=== PATIENT | male | born 1965 | race Caucasian/White ===

== ENCOUNTER 2017-05-25 02:26 | Inpatient (IN) | payer OTHER ==
[~2017-05-25] VITALS: Ht 177.8 cm; Wt 91.0 kg
[2017-05-25 07:47] VITALS: BP 131/78; PULSE 62; TEMP 36.7; O2SAT 97; Ht 177.8 cm; Wt 91.0 kg
[2017-05-25] MEDS ORDERED: PROMETHAZINE HCL INJ 25 MG in SODIUM CHLORIDE 0.9% 50ML 50 ML IV PRN (08:00)
[2017-05-25] MEDS ORDERED: SODIUM CHLORIDE 0.9% 1000ML 1,000 ML IV SCH (08:00)
[2017-05-25] MEDS ORDERED: VANCOMYCIN CONSULT ACTIVE PRN (08:32)
[2017-05-25 08:59] LABS: HEMOGLOBIN 10.1 g/dL (14.0-18.0); MEAN CELL VOLUME 86.6 fL (80-100); MEAN CORPUSCULAR HEMOGLOBIN 28.2 pg (25-34); MEAN CORPUSCULAR HGB CONC 32.6 g/dl (32-36); MEAN PLATELET VOLUME 8.4 fL (7.4-10.4); PLATELET COUNT 303 K/uL (130-400); RED CELL DISTRIBUTION WIDTH CV 16.1 % (11.5-14.5); RED CELL DISTRIBUTION WIDTH SD 51.1 fL (36.4-46.3); WHITE BLOOD COUNT 9.21 K/uL (4.8-10.8)
[2017-05-25] MEDS: HYDROmorphone INJ 1 MG/ML SYR IV PRN ×6 (09:11→22:26)
[2017-05-25] MEDS: CEFTRIAXONE SOD INJ 2,000 MG in DEXTROSE 5% 50ML 50 ML IV SCH (09:11)
--- NOTE | 2017-05-25 09:15 | DIAGNOSTIC IMAGING REPORT ---
L FEMUR 2 VIEWS ROUTINE CLINICAL HISTORY: dislocation left hip/r/o fx. Left hip pain. COMPARISON STUDY: There is a left femoral prosthesis. The head of the prosthesis is dislocated superiorly from the acetabulum. There is also a periprosthetic fracture at the residual proximal femur. This demonstrates up to 1.6 cm of anterior lateral displacement. The mid to distal femur are intact. A surgical drain is noted within the soft tissues of the left hip. FINDINGS: IMPRESSION: 1. Dislocation of the femoral prosthesis from the acetabulum. 2. There is a periprosthetic fracture at the proximal femur which demonstrates 1.6 cm of anterior lateral displacement. Electronically signed by: Jordin Gomez M.D. 05/25/2017 9:14 AM Dictated Date/Time: 05/25/2017 9:07 AM
[2017-05-25 09:18] LABS: CALCIUM 8.8 mg/dl (8.5-10.1); CREATININE 0.62 mg/dl (0.60-1.40); POTASSIUM 4.3 mmol/L (3.5-5.1)
--- NOTE | 2017-05-25 09:30 | History and Physical ---
History & Physical Date & Time of Service: May 25, 2017 at 09:09 Chief Complaint: Left Hip Fracture Primary Care Physician: Carmen Leahy D.O. History of Present Illness Source: patient, hospital records, senior living 52 yo Male with PMH of Left hip prosthesis infection, Gastritis, Duodenal ulcer , HTN, Dyslipidemia, Depression was transferred from [facility] for left hip dislocation. Pt said that he had surgery done in [facility] on 05/17 for Left hip prosthesis infection. He had and antibiotic spacer placed in the left hip joint area. He said that after the surgery while working with PT, he had a fall and xray was done at that time was unremarkable. Pt said that he was transferred to Nursing to complete IV abx with Vanco and Rocephin for a course of 6 weeks. Pt said that yesterday morning he rolled over in bed and felt a pop , then he developed 10/10 pain in his left hip area. He said that the pain is constant, non radiating, worsening when moving his left LE. He said that stays still help with the pain minimally. He had xray done in the nursing and at [facility] that showed dislocation of the L hip. Pt orthopedic is out of town, and was transferred to [facility] for Dr. Peoples to evaluate him. Denies any chest pain, palpitation, dizziness, fever, chills and SOB. Past Medical/Surgical History Left Hip prosthesis infection HTN Dyslipidemia Depression Gastritis Duodenal Ulcer Arthritis Anxiety Social History Smoking Status: Former Smoker Drug Use: none Allergies Coded Allergies: No Known Allergies (Unverified , 05/25/17) Home Medications Scheduled Aspirin (Aspir-81), 81 MG PO BID Atorvastatin (Lipitor), 1 TAB PO DAILY Ceftriaxone Sod (Rocephin), 2 GM IV DAILY Celecoxib (Celebrex), 200 MG PO BID Cyclobenzaprine HCl (Cyclobenzaprine HCl), 1 TAB PO TID Escitalopram (Lexapro), 10 MG PO DAILY Ferrous Sulfate (Ferrous Sulfate), 1 TAB PO TID Gabapentin (Neurontin), 600 MG PO Q6 Hydralazine Hcl (Apresoline), 1 TAB PO TID Metoclopramide (Reglan), 10 MG PO BID Omeprazole (Prilosec), 20 MG PO BID Potassium Ext Rel (Klor-Con), 20 MEQ PO DAILY Valsartan (Diovan), 1 TAB PO DAILY Vancomycin Hcl In Dextrose (Vancomycin Hcl In Dextros), 1.75 GM IV Q12 Venlafaxine Hcl (Venlafaxine Extended Rel), 1 CAP PO DAILY Zolpidem Tartrate (Ambien), 10 MG PO HS Scheduled PRN Acetaminophen (Tylenol), 1,000 MG PO Q8 PRN for Pain Bisacodyl (Dulcolax), 1 SUPP LA UD PRN for Constipation Clonazepam (Klonopin), 0.5 MG PO BID PRN for Anxiety Oxycodone Hcl (Oxycodone Hcl), 1 TAB PO BID PRN for Pain Miscellaneous Medications Sucralfate (Sucralfate), 1 GM PO Review of Systems Constitutional: No fever, No chills Eyes: No eye pain, No redness ENT: No nasal symptoms, No sore throat Respiratory: No cough, No wheezing, No shortness of breath Cardiovascular: No chest pain, No claudication, No palpitations Abdomen: No pain, No nausea, No vomiting Musculoskeletal: + joint pain Genitourinary - Male: No hematuria, No dysuria Neurologic: No paralysis Psychiatric: No substance abuse Endocrine: No excessive thirst Hematologic / Lymphatic: No abnormal bleeding/bruising Integumentary: No rash, No itch Physical Exam Vital Signs Date Time Temp Pulse Resp B/P (MAP) Pulse Ox O2 Delivery O2 Flow Rate FiO2 05/25/17 07:47 36.7 62 18 131/78 97 Room Air General Appearance: WD/WN, + mild distress (due to left hip pain) Head: normocephalic, atraumatic Eyes: PERRL, EOMI ENT: hearing grossly normal Neck: no JVD, trachea midline Respiratory/Chest: no respiratory distress, no accessory muscle use Cardiovascular: regular rate, rhythm, no JVD, no murmur Abdomen/GI: normal bowel sounds, non tender Back: no CVA tenderness Extremities/Musculoskelatal: no calf tenderness, no pedal edema Neurologic/Psych: no motor/sensory deficits, alert, oriented x 3 Skin: warm/dry, no rash Diagnostics Laboratory Results Results Past 24 Hours Test 05/25/17 08:00 05/25/17 08:40 05/25/17 08:50 Range/Units White Blood Count 9.21 4.8-10.8 K/uL Red Blood Count 3.58 4.7-6.1 M/uL Hemoglobin 10.1 14.0-18.0 g/dL Hematocrit 31.0 42-52 % Mean Corpuscular Volume 86.6 80-100 fL Mean Corpuscular Hemoglobin 28.2 25-34 pg Mean Corpuscular Hemoglobin Concent 32.6 32-36 g/dl RDW Standard Deviation 51.1 36.4-46.3 fL RDW Coefficient of Variation 16.1 11.5-14.5 % Platelet Count 303 130-400 K/uL Mean Platelet Volume 8.4 7.4-10.4 fL Impression Assessment and Plan Left hip Dislocation S/p Left hip prosthesis infection 1 week ago has a spacer placed in the Left hip joint Has been on IV Vanco and Rocephin xray showed dislocation of left hip Continue pain control Ortho consulted, plan to go to OR today Keep NPO for now Last culture grew Coagulase negative Staph ID consult Check CBC and BMP HTN BP stable Continue valsartan and hydralazine Continue monitor BP Gastritis Hx Duodenal ulcer On Carafate Continue PPI Depression/Anxiety Continue venlafaxine and clonazepam prn Stable DVT PX SCDs for now due to anticipate surgery CODE STATUS FULL CODE DISPOSITION Will need in patient rehab Level of Care Med/Surg Advanced Directives Existing Living Will: No Existing Power of Shopper'S Aide: No Resuscitation Status FULL RESUSCITATION VTE Prophylaxis VTE Risk Assessment Done? Y/N: Yes Risk Level: Moderate Given or contraindicated: SCD's
--- NOTE | 2017-05-25 10:10 | CONSULTATION REPORT ---
DATE OF CONSULTATION: 05/25/2017 REASON FOR CONSULT: Dislocated left hip antibiotic spacer. HISTORY OF PRESENT ILLNESS: The patient is a 52-year-old white male who was seeing Dr. Hoffmann for a left ARNAUD infection. He apparently had his hip replaced in [place] approximately 7 years ago and began having some discomfort in the left hip over the last 2 years with development of fluid collection. He said he has been treated multiple times in the past and from his input states that there was nothing growing on the culture; however, Dr. Hoffmann ended up taking a culture and having it sent out and came back that the prosthesis was infected itself. They then went into the left hip approximately over a week over ago and a removal of prosthesis performed. Irrigation and debridement was done and then implantation of antibiotic spacer was performed. At that point in time, the patient was progressing and then, he states he had fallen at the hospital with no apparent problem; however, he was then transferred to a nursing facility over in [place] and began having increased pain in the left hip and was taken to [facility]. X-rays were taken and it was found that he had a dislocation of his left hip prosthesis that was the spacer. He underwent several attempts of close reduction per the ER staff, which was unsuccessful. He has now been transferred to our facility to help take care of this problem. PAST MEDICAL HISTORY: History of anxiety, osteoarthritis, chronic back and hip pain, chronic pancreatitis, depression, history of duodenal ulcer, gastritis, GERD, hyperlipidemia, hypertension, pancreatitis, question of diabetes mellitus and acute renal failure. PAST SURGICAL HISTORY: Aspiration of abscess in early May 2017 and also ultrasonic guided needle aspiration in February 2017. He has had several EGDs. He has had a shoulder arthroscopy in 2016. He has had a lumbar fusion. 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 FAMILY HISTORY: Noncontributory. SOCIAL HISTORY: The patient used to drink alcohol, but quit approximately 20 years ago. He does not use tobacco. MEDICATIONS: Recent medication history, Zofran 4 mg q. 8 hours p.r.n. and ferrous sulfate 324 mg daily. Home medications including sucralfate 1 gram daily, venlafaxine 75 mg p.o. daily, omeprazole 20 mg p.o. b.i.d. p.r.n., valsartan 320 mg p.o. daily, pantoprazole 40 mg p.o. t.i.d. before meals, clonazepam 0.5 mg p.o. b.i.d., hydralazine 50 mg t.i.d., Ambien 10 mg p.o. at bedtime, gabapentin 600 mg p.o. q.i.d. p.r.n., metoclopramide 10 mg 1 tab b.i.d., take 1 tablet by mouth twice daily before meals, amlodipine 10 mg p.o. daily, escitalopram 10 mg p.o. daily, and atorvastatin 20 mg p.o. daily. ALLERGIES: NKDA. REVIEW OF SYSTEMS: As per admitting history and physical. PHYSICAL EXAMINATION: VITAL SIGNS: Temperature 36.7, pulse 62, respiration 18, BP 131/78, and pulse ox 97% on room air. GENERAL: The patient is a well-developed and well-nourished white male, who is alert and oriented to person, place and time. He is in mild amount of distress due to pain in his left hip and is pale in appearance. He is pleasant and cooperative. EXTREMITIES: On examination of his left lower extremity, it is shortened and externally rotated compared to the right. He currently has a MARQUIS VAC dressing on at this point and also still has his drain in as is Dr. Hoffmann's custom for this type of infection. There is no overt erythema at this time, but thigh is moderately swollen but soft and he is obviously unable to move the left hip due to dislocation of his spacer. He has pain radiating down to the femur to the knee, but the knee is nontender on palpation and he does have some limited range of motion right now with the knee, but causes discomfort in the left hip. Left ankle has good range of motion as do the toes and he has good sensation. Right lower extremity is nontender and has good range of motion of the hip, knee and ankle. Upper extremities are benign at this time. Range of motions are within normal limits. He is nontender at the shoulders, elbows or wrists. He denies neck pain and has good range of motion of his neck and denies any current thoracic back pain and no overt low back pain at this time. He has no gross motor or sensory deficit other than noted loss of range of motion due to dislocation of his left hip spacer. ASSESSMENT: Dislocated left antibiotic hip spacer, status post infection left total hip arthroplasty. PLAN: I have spoken to Dr. Hoffmann this morning who feels that the previous infection organism was Staph epidermidis. We will call [facility] to go back a few months to see if there is positive cultures noted. The patient was on vancomycin and pharmacy has been consulted to continue his vancomycin dosing, which was b.i.d. in the past. We have consulted infectious disease for further input. The patient will obviously have to undergo a reduction of his antibiotic spacer. This will likely require opening up the wound and performing the open reduction and/or replacement of his original spacer with new spacer. X-rays will be taken and plans will be to hopefully do his reduction either today or tomorrow pending what equipment will be needed. GLADYS
[2017-05-25] MEDS ORDERED: POTA20TA16 PO (10:30)
[2017-05-25] MEDS ORDERED: AMLO-114 PO (10:30)
[2017-05-25] MEDS ORDERED: SUCR1TAB PO (10:30)
[2017-05-25] MEDS ORDERED: GABA600T PO (10:30)
[2017-05-25] MEDS ORDERED: CLON0.5T3 PO (10:30)
[2017-05-25] MEDS ORDERED: HYDR-4717 PO (10:30)
[2017-05-25] MEDS ORDERED: VENL75CA73 PO (10:30)
[2017-05-25] MEDS ORDERED: METO-157 PO (10:30)
[2017-05-25] MEDS ORDERED: VALS320T PO (10:30)
[2017-05-25] MEDS ORDERED: ESCI10TA17 PO (10:30)
[2017-05-25] MEDS ORDERED: ATOR-54 PO (10:30)
[2017-05-25] MEDS ORDERED: ZOLP10TA PO (10:30)
[2017-05-25] MEDS ORDERED: PRLSR20 PO (10:30)
[2017-05-25] MEDS ORDERED: FERR324T4 PO (10:30)
[2017-05-25] MEDS ORDERED: VANCOMYCIN INJ 2,000 MG in SODIUM CHLORIDE 0.9% 500ML 500 ML IV ONE (11:00)
--- NOTE | 2017-05-25 11:07 | Pharmacy Progress Note ---
Pharmacy Abx Initial Consult Date of Service May 25, 2017. Pharmacy Dosing Scope Date of Consult: 05/25/17 Consultation requested by: Hugo Rajput PA-C Pharmacy is consulted to initiate Vancomycin IV dosing therapy, order appropriate labs and adjust drug dose/frequency. Subjective Objective Height (Feet): 5 Height (Inches): 10.00 Weight (Kilograms): 91.000 Vital Signs (Past 12Hrs) Vital Signs Past 12 Hours Date Time Temp Pulse Resp B/P (MAP) Pulse Ox O2 Delivery O2 Flow Rate FiO2 05/25/17 07:47 36.7 62 18 131/78 97 Room Air Lab Results (24Hrs) Laboratory Tests (24 Hours) Test 05/25/17 08:40 White Blood Count 9.21 K/uL (4.8-10.8) Assessment & Plan Assessment 52 year old male with infected left hip prosthesis admitted for dislocated left hip antibiotic spacer. * s/p surgery on 05/17/17 for infected prothesis; antibiotic spacer placed and patient ordered to complete 6 weeks of vanc + ceftriaxone IV * Contacted Pharmacy at [facility]; unable to determine last dose of vanc IV * Ordered a random level to ensure ok to restart vanc. Random level of 5.7 mcg/ ml. Plan Vancomycin IV * Loading dose: 2000 mg (22 mg/kg) * Maintenance dose: 91318 mg IV (16.5 mg/kg) every 8 hours * Goal trough level for hardware infection (no C&S avail) : 15 to 20 mcg/mL * Trough level ordered for 05/27/17 Patient also ordered ceftriaxone 2g IV q24h Pharmacy will continue to follow and will adjust dose/frequency as necessary. Thank you.
--- NOTE | 2017-05-25 14:58 | Medical Consult ---
Consultation Date of Consultation: May 25, 2017. Attending Physician: Juan David Peoples D.O. Reason for Consultation: Infected left ARNAUD History of Present Illness 52-year-old male with history of diabetes mellitus, hypertension, hyperlipidemia, pancreatitis, was found to have infection his left hip prosthesis, and underwent removal and placement of spacer. He was placed on IV vancomycin and Rocephin, and was undergoing physical therapy, but then suffered fall with severe pain in his hip, and was found to have fracture of his spacer. Pain rated 10/10 in intensity. He was admitted here for further management. He is scheduled now for repeat left hip debridement with replacement of spacer. He has not had any significant fever or chills. Past Medical/Surgical History PAST MEDICAL HISTORY: History of anxiety, osteoarthritis, chronic back and hip pain, chronic pancreatitis, depression, history of duodenal ulcer, gastritis, GERD, hyperlipidemia, hypertension, pancreatitis, question of diabetes mellitus and acute renal failure. PAST SURGICAL HISTORY: Aspiration of abscess in early May 2017 and also ultrasonic guided needle aspiration in February 2017. He has had several EGDs. He has had a shoulder arthroscopy in 2015. He has had a lumbar fusion. 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 Family History Noncontributory Social History Smoking Status: Former Smoker Drug Use: none Allergies Coded Allergies: No Known Allergies (Unverified , 05/25/17) Current Inpatient Medications Current Inpatient Medications Medications (Trade) Dose Ordered Sig/Fito Route Start Time Stop Time Status Last Admin Dose Admin Promethazine HCl 25 mg/Sodium Chloride 51 ml @ 204 mls/hr Q6H PRN IV 05/25/17 08:00 06/24/17 07:59 Vancomycin HCl (Consult) 1 ea UD PRN N/A 05/25/17 08:32 06/24/17 08:31 Hydromorphone HCl (Dilaudid Inj) 1 mg Q2HWA PRN IV 05/25/17 08:00 06/08/17 07:59 05/25/17 13:29 1 MG Sodium Chloride 1,000 ml @ 75 mls/hr [id number] IV 05/25/17 08:00 06/24/17 07:59 05/25/17 09:10 75 MLS/HR Ceftriaxone Sodium 2000 mg/ Dextrose 70 ml @ 100 mls/hr Q24H IV 05/25/17 09:00 07/06/17 08:59 05/25/17 09:11 100 MLS/HR Vancomycin HCl 1500 mg/Sodium Chloride 530 ml @ 200 mls/hr Q8H IV 05/25/17 18:00 06/04/17 17:59 Review of Systems All systems were reviewed and are negative except as per HPI Physical Exam Date Time Temp Pulse Resp B/P (MAP) Pulse Ox O2 Delivery O2 Flow Rate FiO2 05/25/17 07:47 36.7 62 18 131/78 97 Room Air General Appearance: WD/WN, no apparent distress Head: normocephalic, atraumatic Eyes: normal inspection, EOMI, sclerae normal ENT: normal ENT inspection, pharynx normal Neck: supple, no adenopathy, thyroid normal, trachea midline Respiratory/Chest: chest non-tender, lungs clear, normal breath sounds, no respiratory distress Cardiovascular: regular rate, rhythm, no gallop, no murmur Abdomen/GI: normal bowel sounds, non tender, soft, no organomegaly Back: normal inspection, no CVA tenderness Extremities/Musculoskelatal: no calf tenderness, non-tender Neurologic/Psych: alert, oriented x 3 Skin: normal color, warm/dry, no rash Lymphatic: no adenopathy Laboratory Results Last 24 Hours Test 05/25/17 08:40 05/25/17 09:21 White Blood Count 9.21 K/uL Red Blood Count 3.58 M/uL Hemoglobin 10.1 g/dL Hematocrit 31.0 % Mean Corpuscular Volume 86.6 fL Mean Corpuscular Hemoglobin 28.2 pg Mean Corpuscular Hemoglobin Concent 32.6 g/dl RDW Standard Deviation 51.1 fL RDW Coefficient of Variation 16.1 % Platelet Count 303 K/uL Mean Platelet Volume 8.4 fL Sodium Level 136 mmol/L Potassium Level 4.3 mmol/L Chloride Level 101 mmol/L Carbon Dioxide Level 30 mmol/L Anion Gap 5.0 mmol/L Blood Urea Nitrogen 10 mg/dl Creatinine 0.62 mg/dl Est Creatinine Clear Calc Drug Dose 156.3 ml/min Estimated GFR () 131.3 Estimated GFR (Non- 113.3 BUN/Creatinine Ratio 16.5 Random Glucose 89 mg/dl Calcium Level 8.8 mg/dl Random Vancomycin Level 5.7 mcg/ml Assessment & Plan Patient with chronically infected left ARNAUD, reportedly with coagulase negative Staph, now status post spacer, then dislocation of spacer awaiting operative intervention. Patient should continue on IV vancomycin pending further culture results and results from [facility]. Will follow.
[2017-05-25 15:20] VITALS: BP 118/79; PULSE 75; TEMP 37.3; O2SAT 94
[2017-05-25] MEDS ORDERED: CELE100C PO (15:57)
[2017-05-25] MEDS ORDERED: ASPI-232 PO (16:00)
[2017-05-25] MEDS ORDERED: TYLOTC500 PO (16:27)
[2017-05-25] MEDS ORDERED: VANC500I IV (16:27)
[2017-05-25] MEDS ORDERED: RCPAV1 IV (16:27)
[2017-05-25] MEDS ORDERED: FLX10 PO (16:27)
[2017-05-25] MEDS ORDERED: OXYC-164 PO (16:27)
[2017-05-25] MEDS ORDERED: BISA10SU3 PR (16:27)
[2017-05-25] MEDS: VANCOMYCIN INJ 1,500 MG in SODIUM CHLORIDE 0.9% 500ML 500 ML IV SCH (17:32)
[2017-05-25] MEDS: GABAPENTIN 600 MG TAB PO SCH ×2 (17:37→23:17)
[2017-05-25] MEDS ORDERED: PROPOFOL IV EMULSION 10 MG/ML 20 ML VIAL IV ONE (17:51)
[2017-05-25] MEDS ORDERED: ROCURONIUM BROMIDE 10 MG/ML 5 ML VIAL IV ONE (17:51)
[2017-05-25] MEDS ORDERED: LIDOCAINE HCL 2% 2 ML VIAL (20MG/ML) ONE (17:51)
[2017-05-25] MEDS ORDERED: ONDANSETRON INJ 2 MG/ML 2 ML VIAL ONE (17:51)
[2017-05-25] MEDS ORDERED: SUCCINYLCHOLINE CHLORIDE 20 MG/ML 10 ML VIAL IV ONE (17:51)
[2017-05-25] MEDS ORDERED: DEXAMETHASONE SOD INJ 4 MG/ML VIAL ONE (17:51)
[2017-05-25] MEDS ORDERED: MIDAZOLAM HCL 1 MG/ML 2ML VIAL ONE (17:55)
[2017-05-25] MEDS ORDERED: FENTANYL CITRATE INJ 50 MCG/1 ML 2 ML VIAL ONE ×2 (17:55→21:00)
[2017-05-25] MEDS ORDERED: FENTANYL CITRATE INJ 50 MCG/1 ML 2 ML VIAL IV PRN (18:30)
[2017-05-25] MEDS ORDERED: PHENYLEPHRINE 100MCG/ML 5ML SYR IV PRN (18:30)
[2017-05-25] MEDS ORDERED: PROMETHAZINE HCL INJ 12.5 MG in SODIUM CHLORIDE 0.9% 50ML 50 ML IV PRN (18:30)
[2017-05-25] MEDS ORDERED: HYDROmorphone INJ 1 MG/ML SYR IV PRN (18:30)
[2017-05-25] MEDS ORDERED: ATROPINE SULFATE 0.1 MG/ML 5ML SYR IV PRN (18:30)
[2017-05-25] MEDS ORDERED: METOCLOPRAMIDE HCL INJ 5 MG/ML 2 ML VIAL IV PRN (18:30)
[2017-05-25] MEDS ORDERED: LABETALOL HCL IV 5 MG/ML 20ML IV PRN (18:30)
[2017-05-25] MEDS ORDERED: ONDANSETRON INJ 2 MG/ML 2 ML VIAL IV PRN ×2 (18:30→20:45)
[2017-05-25] MEDS ORDERED: EpHEDrine SULFATE INJ 50 MG/ML AMP IV PRN (18:30)
--- NOTE | 2017-05-25 18:34 | History & Physical Bridge Note ---
H&P Re-Evaluation Bridge Note: I have examined the patient, reviewed the History & Physical and in the interval since the performance of the History & Physical I have noted the following changes of clinical significance: No changes noted
[2017-05-25] MEDS ORDERED: PHENYLEPHRINE 100MCG/ML 5ML SYR ONE (18:59)
[2017-05-25] MEDS ORDERED: BACITRACIN 50000 UNIT VIAL ONE (19:15)
[2017-05-25] MEDS ORDERED: ROPIVACAINE 5MG/ML 30 ML 150 MG, BUPIVACAINE 0.5% MPF INJ 30 ML, EpINEphrine HCL INJ 0.... INFIL SCH ×8 (19:30)
[2017-05-25] MEDS ORDERED: HYDROmorphone INJ 2 MG/ML SYR/VIAL ONE ×2 (19:39→21:23)
[2017-05-25] MEDS ORDERED: EpHEDrine SULFATE INJ 50 MG/ML AMP ONE (19:58)
--- NOTE | 2017-05-25 20:43 | [facility] Post Operative Brief Note ---
Immediate Operative Summary Operative Date May 25, 2017. Pre-Operative Diagnosis Dislocated left antibiotic hip spacer, status post infection left total hip arthroplasty Post-Operative Diagnosis Dislocated left antibiotic hip spacer, status post infection left total hip arthroplasty Procedure(s) Performed Open Reduction, Irrigation and Debridement Left Hip Articulating Antibiotic Spacer Surgeon Dr. Calderon Hand Bootmaker Surgeon(s) Elias Sy PA-C Estimated Blood Loss 200cc Findings see dictated op note Fluids (cc crystalloids) 1200 Specimens For Culture: 1. Left Hip Joint - Routine - Gram Stain, C+S, Aerobic/Anaerobic 2. Left Hip Joint - Routine - Gram Stain, C+S, Aerobic/Anaerobic 3. Left Hip Joint - Routine - Gram Stain, C+S, Aerobic/Anaerobic Drains x2 left hip Anesthesia general Complication(s) None Disposition Recovery Room / PACU
[2017-05-25] MEDS ORDERED: MoRPHine SULFATE 4 MG/ML 1 ML CARP\\VIAL IV PRN (20:45)
[2017-05-25] MEDS ORDERED: METOCLOPRAMIDE HCL INJ 5 MG/ML 2 ML VIAL ONE (21:40)
--- NOTE | 2017-05-25 21:45 | DIAGNOSTIC IMAGING REPORT ---
SINGLE VIEW PELVIS; SINGLE VIEW left HIP CLINICAL HISTORY: Postoperative examination. Open reduction of the dislocated hip arthroplasty. FINDINGS: An AP portable view of the hips and pelvis an a crosstable lateral portable view of the left hip are obtained. Comparison is made to femoral radiographs dated 05/25/2017. There has been successful reduction of the dislocated left hip arthroplasty which is now in near-anatomic alignment. There is a nondistracted fracture identified in the femoral shaft around the distal end of the arthroplasty. No additional acute fracture is identified. There are expected postoperative changes overlying the left hip including skin clips, subcutaneous gas, a surgical drain, and soft tissue swelling. A right hip arthroplasty is also noted. IMPRESSION: 1. There has been successful reduction of the dislocated left hip arthroplasty as compared to today's earlier examination. The arthroplasty is in near-anatomic alignment. 2. There is a nondistracted fracture of the femoral shaft around the distal arthroplasty stem. Electronically signed by: Sin Hernandez M.D. 05/25/2017 9:44 PM Dictated Date/Time: 05/25/2017 9:41 PM
--- NOTE | 2017-05-25 21:46 | Anesthesiology Progress Note ---
Anesthesia Post Op Note Date & Time May 25, 2017 at 21:46 Vital Signs Pain Intensity: 6 Vital Signs Past 12 Hours Date Time Temp Pulse Resp B/P (MAP) Pulse Ox O2 Delivery O2 Flow Rate FiO2 05/25/17 21:35 74 16 138/84 100 Nasal Cannula 4 05/25/17 21:25 85 16 132/80 100 Nasal Cannula 4 05/25/17 21:15 75 16 152/92 100 Nasal Cannula 4 05/25/17 21:05 76 16 157/94 100 Nasal Cannula 4 05/25/17 20:55 90 16 157/116 100 Nasal Cannula 4 05/25/17 20:48 36.9 93 16 143/81 98 Nasal Cannula 4 05/25/17 15:30 Room Air 05/25/17 15:20 37.3 75 18 118/79 (92) 94 Room Air Notes Mental Status: alert / awake / arousable, participated in evaluation Pt Amnestic to Procedure: Yes Nausea / Vomiting: adequately controlled Pain: adequately controlled Airway Patency, RR, SpO2: stable & adequate BP & HR: stable & adequate Hydration State: stable & adequate Anesthetic Complications: no major complications apparent
--- NOTE | 2017-05-25 21:52 | Orthopedic Progress Note ---
Orthopedic Progress Note Date of Service May 25, 2017. Subjective Additional Notes: Post op Progress note The patient was seen in the PACU, comfortable, no acute issues, pain well controlled. Objective LLE NVSI +EHL/FHL/TA/GS SILT grossly, CR< 2 seconds, +2 DP pulse, compartments soft NT, wound vac and incisional vac in place, abduction pillow in place. Date Time Temp Pulse Resp B/P (MAP) Pulse Ox O2 Delivery O2 Flow Rate FiO2 05/25/17 21:45 36.4 74 16 128/82 100 Nasal Cannula 2 05/25/17 21:35 74 16 138/84 100 Nasal Cannula 4 05/25/17 21:25 85 16 132/80 100 Nasal Cannula 4 05/25/17 21:15 75 16 152/92 100 Nasal Cannula 4 05/25/17 21:05 76 16 157/94 100 Nasal Cannula 4 05/25/17 20:55 90 16 157/116 100 Nasal Cannula 4 05/25/17 20:48 36.9 93 16 143/81 98 Nasal Cannula 4 05/25/17 15:30 Room Air 05/25/17 15:20 37.3 75 18 118/79 (92) 94 Room Air 05/25/17 07:47 36.7 62 18 131/78 97 Room Air Laboratory Results 24 Hours: Test 05/25/17 08:40 Hematocrit 31.0 % Hemoglobin 10.1 g/dL Assessment & Plan Assessment: s/p Open reduction, Irrigation and debridement of left hip articulating antibiotic cement spacer Plan: -IV abx per ID -Maintain wound vacs x 2 -Maintain incisional vac -Pain controlled -DVT PPX - ASA BID -NWB LLE -Maintain abduction pillow at all times when in bed, -Abduction brace when out of bed -PT/OT -PO XR pending
[2017-05-25 22:05] VITALS: BP 118/79; PULSE 80; TEMP 37.3; O2SAT 93
[2017-05-25] MEDS: SODIUM CHLORIDE 0.9% 1000ML 1,000 ML IV SCH (22:26)
[2017-05-25] MEDS: ACETAMINOPHEN IV 1,000 MG in EMPTY BAG 0 ML IV SCH (22:27)
[2017-05-25] MEDS: ZOLPIDEM TARTRATE 10 MG TAB PO SCH ×2 (22:27→23:07)
[2017-05-25] MEDS: OXYCODONE HCL 10 MG TABCR (OXYCONTIN) PO SCH (22:27)
[2017-05-25] MEDS: DOCUSATE SODIUM 100 MG CAP PO SCH (22:28)
[2017-05-25] MEDS: ASPIRIN 325 MG ECTAB PO SCH (22:28)
[2017-05-25] MEDS: SENNA 8.6 MG TAB PO SCH (22:28)
[2017-05-25] MEDS: PANTOprazole SOD 40 MG TAB PO SCH (22:30)
[2017-05-25] MEDS: CYCLOBENZAPRINE HCL 10 MG TAB PO SCH (22:30)
[2017-05-25 22:37] VITALS: BP 124/84; PULSE 90; O2SAT 98
[2017-05-25 23:05] VITALS: BP 112/83; PULSE 87; TEMP 36.6; O2SAT 96
[2017-05-25] MEDS: CLONAZEPAM 0.5 MG TAB PO PRN (23:07)
[2017-05-26] VITALS (7 sets, daily range): BP systolic 100–138; BP diastolic 66–85; PULSE 72–95; TEMP 36.6–36.8; O2SAT 93–95
--- NOTE | 2017-05-26 00:28 | [facility] Operative Report ---
Operative Report Operative Date May 26, 2017. Pre-Operative Diagnosis Dislocated left antibiotic hip spacer, status post infection left total hip arthroplasty Post-Operative Diagnosis Dislocated left antibiotic hip spacer, status post infection left total hip arthroplasty Procedure(s) Performed Open Reduction, Irrigation and Debridement Left Hip Articulating Antibiotic Spacer Surgeon Dr. Calderon Waste Transportation Technician Surgeon(s) Elias Sy PA-C Estimated Blood Loss 200cc Findings See dictated op note Fluids 1200 Specimens For Culture: 1. Left Hip Joint - Routine - Gram Stain, C+S, Aerobic/Anaerobic 2. Left Hip Joint - Routine - Gram Stain, C+S, Aerobic/Anaerobic 3. Left Hip Joint - Routine - Gram Stain, C+S, Aerobic/Anaerobic Drains x2 left hip Anesthesia general Disposition Recovery Room / PACU Indications The patient is a 52-year-old male who has a significant past medical history for left total hip arthroplasty infection. He had a total hip arthroplasty seven years ago in [facility]. He subsequently developed an infection and was treated by Dr. Hoffmann on May 17, 2017 with explant, I+D and placement of articulating antibiotic spacer. The patient had been doing well however while at the nursing facility in [place], [place] he was awoken at night with increased pain of the left hip. X-rays taken at the [facility] demonstrated a dislocation of the antibiotic cement spacer. Attempt at close reduction was performed however unsuccessful and the patient was subsequently transferred to [facility]. I have indicated the patient for open reduction, irrigation and debridement, placement of antibiotic cement spacer. The risks and benefits of procedure were explained at length to the patient which include but not limited to infection, blood clots, damage to surrounding nerves, vessels, bone, and soft tissue. Leg length discrepancy, chronic pain, dislocation and need for additional surgery. Cardio and pulmonary arrest and . The patient decided to proceed with surgical intervention at this time and inform consent was obtained. Description of Procedure Following induction of adequate anesthesia, the patient was transferred to the OR table and placed in the lateral decubitus position with right hip down. Sutures and drains from previous surgery were removed in a sterile fashion with suture kit. The left hip was prepped and draped in usual sterile manner. Incision was made through previous posterior incision. Subcutaneous tissue was sharply dissected. Electrocautery was used for hemostasis. Fascia was incised throughout the length of the wound and external rotators identified. Tissue planes were meticulously dissected while taken care to protect neurovascular structures. All suture remnants from previous surgery was removed. Once the external rotators and capsule were taken down and suture removed a large amount of serious fluid was identified and cultures sent x 3. The articulating antibiotic spacer was identified and removed in whole by hand. Exposure was gained carefully to investigate the acetabulum and soft tissue debris removed along with any remaining blood clot from previous surgery. Next exposure was gained to the proximal femur. The greater trochanteric and lesser trochanteric fractures were inspected both visually and with manual palpation. Soft tissue attachments were intact and fracture pieces were relatively reduced and in acceptable alignment. Next the proximal femur was broached utilizing a size 7 while increasing sequentially to size 11. Care was taken to ensure the broach bypassed the fracture sites and achieved adequate stability. The hip joint was irrigated with copious amounts of sterile saline solution with bacitracin. A size 11 stem, +6mm neck with a 52mm head articulating antibiotic cement spacer was impacted into position. Following reduction, the hip was found to be stable to 45 degrees of internal rotation and 90 degrees of flexion with equal leg lengths. The hip was once again irrigated with sterile saline solution with bacitracin for a total of 9 Liters. The [facility] joint mix was injected throughout the hip and the capsule along with external rotators was repaired using #1 PDS sutures. Once again the wound was copiously irrigated with sterile saline solution. Fascia was closed using #1 PDS [id number] sutures. Superficial drains x 2 were placed. Subcutaneous tissue was closed using 3-0 PDS, and skin was closed with veronique. Sterile xeroform and Prevenia vacuum dressing system was placed over the incision. Sterile 4x4s, ABDs and tape over the drain sites. The patient was extubated in the OR and was taken to the recovery room in stable condition. The patient tolerated the procedure well. Due to the complex nature of the procedure, the entire surgery was performed with the operational assistance of Elias Sy PA-C. The assistant federal public defender, under direct supervision, was involved in the actual performance of all aspects of the surgical procedure including hemostasis, tissue retraction and incision, instrument management, patient positioning, and wound closure. I attest to the content of the Intraoperative Record and any orders documented therein. Any exceptions are noted below.
[2017-05-26] MEDS: OXYCODONE HCL IR 5 MG TAB (IMMEDIATE RELEASE) PO PRN ×6 (01:17→22:28)
[2017-05-26] MEDS: VANCOMYCIN INJ 1,500 MG in SODIUM CHLORIDE 0.9% 500ML 500 ML IV SCH ×3 (01:28→18:22)
[2017-05-26] MEDS: ACETAMINOPHEN IV 1,000 MG in EMPTY BAG 0 ML IV SCH ×2 (05:41→13:35)
[2017-05-26] MEDS: GABAPENTIN 600 MG TAB PO SCH ×4 (05:42→23:45)
[2017-05-26] MEDS ORDERED: ROPIVACAINE 5MG/ML 30 ML 150 MG, BUPIVACAINE/EPINEPHR 0.5% MPF 30 ML, KETOROLAC TROMETH... INFIL SCH ×7 (06:00)
[2017-05-26 06:38] LABS: BASO % 0.3 %; BASO ABS # 0.02 K/uL (0-0.2); EOS % 0.1 %; EOS ABS # 0.01 K/uL (0-0.5); HEMATOCRIT 26.5 % (42-52); HEMOGLOBIN 8.6 g/dL (14.0-18.0); IG# 0.06 K/uL (0.00-0.02); LYMPH % 14.9 %; LYMPH ABS # 1.02 K/uL (1.2-3.4); MEAN CELL VOLUME 87.2 fL (80-100); MEAN CORPUSCULAR HEMOGLOBIN 28.3 pg (25-34); MEAN CORPUSCULAR HGB CONC 32.5 g/dl (32-36); MEAN PLATELET VOLUME 8.5 fL (7.4-10.4); MONO % 6.6 %; MONO ABS # 0.45 K/uL (0.11-0.59); NEUT % 77.2 %; NEUT ABS # 5.28 K/uL (1.4-6.5); PLATELET COUNT 284 K/uL (130-400); RED CELL DISTRIBUTION WIDTH CV 15.8 % (11.5-14.5); RED CELL DISTRIBUTION WIDTH SD 50.2 fL (36.4-46.3); WHITE BLOOD COUNT 6.84 K/uL (4.8-10.8)
[2017-05-26 06:45] LABS: INR 1.1 (0.9-1.1)
[2017-05-26 07:12] LABS: CREATININE 0.86 mg/dl (0.60-1.40); POTASSIUM 4.3 mmol/L (3.5-5.1)
--- NOTE | 2017-05-26 08:31 | Orthopedic Progress Note ---
Orthopedic Progress Note Date of Service May 26, 2017. Subjective Post OP Day: 1 Reports: feeling well, pain controlled w PO medications, Denies: complaints, chest pain, SOB, nausea / vomiting, light headedness, calf pain Objective calves soft nontender, N/V intact, hip located, capillary refill less than 2 sec., dressing C/D/I, A&O x3, toes mobile Date Time Temp Pulse Resp B/P (MAP) Pulse Ox O2 Delivery O2 Flow Rate FiO2 05/26/17 06:57 36.7 72 18 100/67 (78) 94 Room Air 05/26/17 03:06 36.6 91 18 108/71 (83) 95 Room Air 05/26/17 01:05 36.6 95 17 114/69 (84) 93 Nasal Cannula 2.0 05/26/17 00:05 36.7 85 17 108/66 (80) 93 Nasal Cannula 2.0 05/25/17 23:20 Nasal Cannula 2.0 05/25/17 23:05 36.6 87 16 112/83 (93) 96 Nasal Cannula 2.0 05/25/17 22:37 90 16 124/84 (97) 98 Nasal Cannula 2.0 05/25/17 22:05 37.3 80 18 118/79 (92) 93 Nasal Cannula 2.0 05/25/17 22:05 93 Nasal Cannula 2.0 05/25/17 21:55 36.4 77 16 133/81 98 Nasal Cannula 2 05/25/17 21:45 36.4 74 16 128/82 100 Nasal Cannula 2 05/25/17 21:35 74 16 138/84 100 Nasal Cannula 4 05/25/17 21:25 85 16 132/80 100 Nasal Cannula 4 05/25/17 21:15 75 16 152/92 100 Nasal Cannula 4 05/25/17 21:05 76 16 157/94 100 Nasal Cannula 4 05/25/17 20:55 90 16 157/116 100 Nasal Cannula 4 05/25/17 20:48 36.9 93 16 143/81 98 Nasal Cannula 4 05/25/17 15:30 Room Air 05/25/17 15:20 37.3 75 18 118/79 (92) 94 Room Air Laboratory Results 24 Hours: Test 05/25/17 08:40 05/26/17 05:49 Hematocrit 31.0 % 26.5 % Hemoglobin 10.1 g/dL 8.6 g/dL White Blood Count 6.84 K/uL Red Blood Count 3.04 M/uL Mean Corpuscular Volume 87.2 fL Mean Corpuscular Hemoglobin 28.3 pg Mean Corpuscular Hemoglobin Concent 32.5 g/dl Platelet Count 284 K/uL Mean Platelet Volume 8.5 fL Neutrophils (%) (Auto) 77.2 % Lymphocytes (%) (Auto) 14.9 % Monocytes (%) (Auto) 6.6 % Eosinophils (%) (Auto) 0.1 % Basophils (%) (Auto) 0.3 % Neutrophils # (Auto) 5.28 K/uL Lymphocytes # (Auto) 1.02 K/uL Monocytes # (Auto) 0.45 K/uL Eosinophils # (Auto) 0.01 K/uL Basophils # (Auto) 0.02 K/uL Prothromb Time International Ratio 1.1 Prothrombin Time 11.4 SECONDS Assessment & Plan Assessment: POD #1 s/p Open reduction, Irrigation and debridement of left hip articulating antibiotic cement spacer Plan: -IV abx per ID -Maintain wound vacs x 2 -Prevena wound vac -Pain controlled -DVT PPX - ASA BID -NWB LLE -Maintain abduction pillow at all times when in bed, -Abduction brace when out of bed -PT/OT PO Xray showing nondistracted fracture of the femoral shaft around the distal arthroplasty stem. Discharge Planning Discharge Planning: uncertain DVT Prophylaxis: TEDs, SCDs, ASA
[2017-05-26] MEDS ORDERED: PANTOprazole SOD 40 MG TAB PO SCH (09:00)
[2017-05-26] MEDS: OXYCODONE HCL 10 MG TABCR (OXYCONTIN) PO SCH ×2 (09:24→20:49)
[2017-05-26] MEDS: ASPIRIN 325 MG ECTAB PO SCH ×2 (09:25→20:50)
[2017-05-26] MEDS: MULTIVITAMIN TAB PO SCH (09:25)
[2017-05-26] MEDS: DOCUSATE SODIUM 100 MG CAP PO SCH ×2 (09:25→20:50)
[2017-05-26] MEDS: CEFTRIAXONE SOD INJ 2,000 MG in DEXTROSE 5% 50ML 50 ML IV SCH (09:26)
[2017-05-26] MEDS: FERROUS SULFATE 325 MG TAB PO SCH ×3 (09:26→18:24)
[2017-05-26] MEDS: CYCLOBENZAPRINE HCL 10 MG TAB PO SCH ×3 (09:27→20:50)
[2017-05-26] MEDS: SUCRALFATE 1 GM TAB PO SCH (09:27)
[2017-05-26] MEDS: VENLAFAXINE HCL XR 75 MG CAPXR PO SCH (09:27)
[2017-05-26] MEDS: PANTOprazole SOD 40 MG TAB PO SCH ×2 (09:28→20:50)
[2017-05-26] MEDS: ESCITALOPRAM OXALATE 10 MG TAB PO SCH (09:29)
[2017-05-26] MEDS: SODIUM CHLORIDE 0.9% 1000ML 1,000 ML IV SCH (09:34)
[2017-05-26] MEDS: ATORVASTATIN 20 MG TAB PO SCH (10:41)
[2017-05-26] MEDS: HYDROmorphone INJ 1 MG/ML SYR IV PRN ×3 (16:57→23:50)
[2017-05-26] MEDS ORDERED: NURSING VERBAL MED ORDER ONE (18:45)
--- NOTE | 2017-05-26 19:15 | Progress Note ---
Medicine Progress Note Date & Time of Visit: May 26, 2017 at 17:07. Subjective Pt was seen and examined Sitting in the commode with no distress Continue to have hip pain He said pain seems to improve with the pain med Denies any chest pain, palpitation, dizziness and SOB Objective Last 8 Hrs Date Time Temp Pulse Resp B/P (MAP) Pulse Ox O2 Delivery O2 Flow Rate FiO2 05/26/17 15:43 36.8 82 18 138/85 (102) 93 Room Air Physical Exam: General- No acute distress Head- atraumatic Eyes- PERRL, EOMI, ENT- oropharynx clear Neck- supple, no JVD Lungs- clear to auscultation Heart- regular rhythm Abdomen- normal bowel sounds, soft Extremities-no calf tenderness, Left hip pain Neuro- alert, oriented x 3; PERRL, EOMI Skin- warm & dry Laboratory Results: Last 24 Hours Test 05/26/17 05:49 05/26/17 17:13 White Blood Count 6.84 K/uL Red Blood Count 3.04 M/uL Hemoglobin 8.6 g/dL Hematocrit 26.5 % Mean Corpuscular Volume 87.2 fL Mean Corpuscular Hemoglobin 28.3 pg Mean Corpuscular Hemoglobin Concent 32.5 g/dl Platelet Count 284 K/uL Mean Platelet Volume 8.5 fL Neutrophils (%) (Auto) 77.2 % Lymphocytes (%) (Auto) 14.9 % Monocytes (%) (Auto) 6.6 % Eosinophils (%) (Auto) 0.1 % Basophils (%) (Auto) 0.3 % Neutrophils # (Auto) 5.28 K/uL Lymphocytes # (Auto) 1.02 K/uL Monocytes # (Auto) 0.45 K/uL Eosinophils # (Auto) 0.01 K/uL Basophils # (Auto) 0.02 K/uL RDW Standard Deviation 50.2 fL RDW Coefficient of Variation 15.8 % Immature Granulocyte % (Auto) 0.9 % Immature Granulocyte # (Auto) 0.06 K/uL Red Blood Cell Morphology Unremarkable Prothrombin Time 11.4 SECONDS Prothromb Time International Ratio 1.1 Sodium Level 132 mmol/L Potassium Level 4.3 mmol/L Chloride Level 98 mmol/L Carbon Dioxide Level 27 mmol/L Anion Gap 7.0 mmol/L Blood Urea Nitrogen 16 mg/dl Creatinine 0.86 mg/dl Est Creatinine Clear Calc Drug Dose 112.7 ml/min Estimated GFR () 114.7 Estimated GFR (Non- 99.0 BUN/Creatinine Ratio 18.7 Random Glucose 171 mg/dl Calcium Level 8.0 mg/dl Bedside Glucose 140 mg/dl Date/Time Source Procedure Growth Status 05/25/17 19:30 Incision Site Hip , Left Gram Stain - Final Resulted 05/25/17 19:30 Incision Site Hip , Left Bacterial Culture - Preliminary NO GROWTH TO DATE. Resulted 05/25/17 19:30 Incision Site Hip , Left Gram Stain - Final Resulted 05/25/17 19:30 Incision Site Hip , Left Bacterial Culture - Preliminary NO GROWTH TO DATE. Resulted 05/25/17 19:30 Incision Site Hip , Left Gram Stain - Final Resulted 05/25/17 19:30 Incision Site Hip , Left Bacterial Culture - Preliminary NO GROWTH TO DATE. Resulted Assessment & Plan Left hip Dislocation S/p Left hip prosthesis infection 1 week ago has a spacer placed in the Left hip joint xray showed dislocation of left hip POD #1 s/p Open reduction, Irrigation and debridement of left hip articulating antibiotic cement spacer Continue IV abx with Vanco and Rocephin ID on board PT/OT Fall precaution Monitor CBC HTN BP stable Continue valsartan and hydralazine Continue monitor BP Gastritis Hx Duodenal ulcer On Carafate Continue PPI Depression/Anxiety Continue venlafaxine and clonazepam prn Stable DVT PX On ASA 325 mg BID as per ortho CODE STATUS FULL CODE DISPOSITION Will need in patient rehab Consultants: Ortho ID Current Inpatient Medications: Current Inpatient Medications Medications (Trade) Dose Ordered Sig/[facility] Route Start Time Stop Time Status Last Admin Dose Admin Promethazine HCl 25 mg/Sodium Chloride 51 ml @ 204 mls/hr Q6H PRN IV 05/25/17 08:00 06/24/17 07:59 05/25/17 23:07 204 MLS/HR Vancomycin HCl (Consult) 1 ea UD PRN N/A 05/25/17 08:32 06/24/17 08:31 Hydromorphone HCl (Dilaudid Inj) 1 mg Q2HWA PRN IV 05/25/17 08:00 06/08/17 07:59 05/26/17 16:57 1 MG Ceftriaxone Sodium 2000 mg/ Dextrose 70 ml @ 100 mls/hr Q24H IV 05/25/17 09:00 07/06/17 08:59 05/26/17 09:26 100 MLS/HR Vancomycin HCl 1500 mg/Sodium Chloride 530 ml @ 200 mls/hr Q8H IV 05/25/17 18:00 06/04/17 17:59 05/26/17 18:22 200 MLS/HR Atorvastatin Calcium (Lipitor Tab) 20 mg DAILY PO 05/26/17 09:00 06/25/17 08:59 05/26/17 10:41 20 MG Clonazepam (Klonopin Tab) 0.5 mg BID PRN PO 05/25/17 16:30 06/24/17 16:29 05/25/17 23:07 0.5 MG Cyclobenzaprine HCl (Flexeril Tab) 10 mg TID PO 05/25/17 21:00 06/24/17 20:59 05/26/17 13:34 10 MG Escitalopram Oxalate (Lexapro Tab) 10 mg DAILY PO 05/26/17 09:00 06/25/17 08:59 05/26/17 09:29 10 MG Gabapentin (Neurontin Tab) 600 mg Q6 PO 05/25/17 18:00 06/24/17 17:59 05/26/17 18:23 600 MG Hydralazine HCl (Apresoline Tab) 50 mg TID PO 05/25/17 21:00 06/24/17 20:59 05/26/17 13:35 50 MG Sucralfate (Carafate Tab) 1 gm DAILY PO 05/26/17 09:00 06/25/17 08:59 05/26/17 09:27 1 GM Valsartan (Diovan Tab) 320 mg DAILY PO 05/26/17 09:00 06/25/17 08:59 Future Hold Venlafaxine HCl (effeXOR EXTENDED REL CAP) 75 mg DAILY PO 05/26/17 09:00 06/25/17 08:59 05/26/17 09:27 75 MG Zolpidem Tartrate (Ambien Tab) 10 mg HS PO 05/25/17 21:00 06/24/17 20:59 05/25/17 23:07 10 MG Ferrous Sulfate (Feosol Tab) 325 mg TIDM PO 05/26/17 08:30 06/25/17 08:29 05/26/17 18:24 325 MG Pantoprazole Sodium (Protonix Tab) 40 mg BID PO 05/25/17 21:00 06/24/17 20:59 05/26/17 09:28 40 MG Sodium Chloride 1,000 ml @ 100 mls/hr Q10H IV 05/25/17 21:00 05/26/17 20:59 05/26/17 09:34 100 MLS/HR Oxycodone HCl (Roxicodone Immediate Rel Tab) 1 TABLET FOR PAIN RATING... Q4H PRN PO 05/25/17 20:45 06/08/17 20:44 05/26/17 18:21 10 MG Morphine Sulfate (MoRPHine SULFATE INJ) 4 mg Q4 PRN IV 05/25/17 20:45 06/08/17 20:44 Acetaminophen 1000 mg/Empty Bag 100 ml @ 400 mls/hr Q8H IV 05/25/17 22:00 05/26/17 21:59 05/26/17 13:35 400 MLS/HR Senna (Senokot Tab) 17.2 mg HS PO 05/25/17 21:00 06/24/17 20:59 05/25/17 22:28 17.2 MG Docusate Sodium (coLACE CAP) 100 mg BID PO 05/25/17 21:00 06/24/17 20:59 05/26/17 09:25 100 MG Diphenhydramine HCl (Benadryl Cap) 25 mg Q8H PRN PO 05/25/17 20:45 06/24/17 20:44 Multivitamins (Multivitamin Tab) 1 tab QAM PO 05/26/17 09:00 06/25/17 08:59 05/26/17 09:25 1 TAB Ondansetron HCl (Zofran Inj) 4 mg Q6H PRN IV 05/25/17 20:45 06/24/17 20:44 05/26/17 05:07 4 MG Aspirin (Ecotrin Tab) 325 mg BID PO 05/25/17 21:00 06/24/17 20:59 05/26/17 09:25 325 MG Oxycodone HCl (Oxycontin Tab) 10 mg Q12H PO 05/25/17 21:00 05/27/17 09:01 05/26/17 09:24 10 MG Heparin Sodium (Porcine) (Heparin 10 Unit/ ml 5 ml Flush) 5 ml PRN PRN FLUSH 05/26/17 02:15 06/25/17 02:14 Miscellaneous Information (Nursing Verbal Med Order) 1 ea ONE ONCE N/A 05/26/17 18:45 05/26/17 18:46 UNV
[2017-05-26] MEDS: CLONAZEPAM 0.5 MG TAB PO PRN (20:49)
[2017-05-26] MEDS: SENNA 8.6 MG TAB PO SCH (20:50)
[2017-05-26] MEDS: ZOLPIDEM TARTRATE 10 MG TAB PO SCH (23:51)
[2017-05-27] VITALS (9 sets, daily range): BP systolic 102–137; BP diastolic 66–85; PULSE 68–86; TEMP 36.5–36.8; O2SAT 92–96
[2017-05-27] MEDS ORDERED: VANCOMYCIN TROUGH ONE (01:30)
[2017-05-27] MEDS: OXYCODONE HCL IR 5 MG TAB (IMMEDIATE RELEASE) PO PRN ×5 (02:12→21:47)
[2017-05-27] MEDS: VANCOMYCIN INJ 1,500 MG in SODIUM CHLORIDE 0.9% 500ML 500 ML IV SCH ×2 (02:12→16:28)
[2017-05-27] MEDS: HYDROmorphone INJ 1 MG/ML SYR IV PRN ×5 (04:35→23:17)
[2017-05-27] MEDS: GABAPENTIN 600 MG TAB PO SCH ×4 (05:52→23:48)
[2017-05-27 06:27] LABS: HEMATOCRIT 24.5 % (42-52); HEMOGLOBIN 7.9 g/dL (14.0-18.0); MEAN CELL VOLUME 87.8 fL (80-100); MEAN CORPUSCULAR HEMOGLOBIN 28.3 pg (25-34); MEAN CORPUSCULAR HGB CONC 32.2 g/dl (32-36); MEAN PLATELET VOLUME 8.3 fL (7.4-10.4); PLATELET COUNT 280 K/uL (130-400); RED CELL DISTRIBUTION WIDTH CV 16.1 % (11.5-14.5); RED CELL DISTRIBUTION WIDTH SD 51.7 fL (36.4-46.3); WHITE BLOOD COUNT 9.55 K/uL (4.8-10.8)
[2017-05-27 07:03] LABS: CALCIUM 8.1 mg/dl (8.5-10.1); CREATININE 0.65 mg/dl (0.60-1.40); POTASSIUM 3.9 mmol/L (3.5-5.1)
--- NOTE | 2017-05-27 07:34 | Orthopedic Progress Note ---
Orthopedic Progress Note Date of Service May 27, 2017. Subjective Post OP Day: 2 Reports: feeling well, pain controlled w PO medications, Denies: complaints, chest pain, SOB, nausea / vomiting, light headedness, calf pain Objective calves soft nontender, N/V intact, capillary refill less than 2 sec., dressing C /D/I (prevena intact), A&O x3, toes mobile Date Time Temp Pulse Resp B/P (MAP) Pulse Ox O2 Delivery O2 Flow Rate FiO2 05/27/17 07:16 36.5 73 16 102/66 (78) 93 Room Air 05/26/17 23:50 Room Air 05/26/17 22:55 36.6 78 16 120/79 (93) 93 Room Air 05/26/17 16:15 Room Air 05/26/17 15:43 36.8 82 18 138/85 (102) 93 Room Air 05/26/17 11:02 36.8 89 18 133/82 (99) 95 Room Air 05/26/17 07:35 Room Air Laboratory Results 24 Hours: Test 05/27/17 05:56 Hematocrit 24.5 % Hemoglobin 7.9 g/dL Assessment & Plan Assessment: POD #2 s/p Open reduction, Irrigation and debridement of left hip articulating antibiotic cement spacer Plan: -IV abx per ID -D/C hemovac -Prevena wound vac -Pain controlled -DVT PPX - ASA BID -NWB LLE -Maintain abduction pillow at all times when in bed, -Abduction brace when out of bed- consult placed for jorgito logan to fit for hip abduction brace -PT/OT PO Xray showing nondistracted fracture of the femoral shaft around the distal arthroplasty stem. Discharge Planning Discharge Planning: uncertain DVT Prophylaxis: TEDs, SCDs, ASA
[2017-05-27] MEDS: ATORVASTATIN 20 MG TAB PO SCH (09:24)
[2017-05-27] MEDS: FERROUS SULFATE 325 MG TAB PO SCH ×3 (09:24→18:37)
[2017-05-27] MEDS: MULTIVITAMIN TAB PO SCH (09:24)
[2017-05-27] MEDS: ASPIRIN 325 MG ECTAB PO SCH ×2 (09:24→21:46)
[2017-05-27] MEDS: CYCLOBENZAPRINE HCL 10 MG TAB PO SCH ×3 (09:24→21:46)
[2017-05-27] MEDS: PANTOprazole SOD 40 MG TAB PO SCH ×2 (09:24→21:47)
[2017-05-27] MEDS: DOCUSATE SODIUM 100 MG CAP PO SCH ×2 (09:24→21:46)
[2017-05-27] MEDS: VENLAFAXINE HCL XR 75 MG CAPXR PO SCH (09:24)
[2017-05-27] MEDS: SUCRALFATE 1 GM TAB PO SCH (09:24)
[2017-05-27] MEDS: CEFTRIAXONE SOD INJ 2,000 MG in DEXTROSE 5% 50ML 50 ML IV SCH (09:24)
[2017-05-27] MEDS: OXYCODONE HCL 10 MG TABCR (OXYCONTIN) PO SCH (09:25)
[2017-05-27] MEDS: ESCITALOPRAM OXALATE 10 MG TAB PO SCH (09:25)
[2017-05-27] MEDS: CLONAZEPAM 0.5 MG TAB PO PRN ×2 (10:01→21:46)
[2017-05-27] MEDS: VALSARTAN 80 MG TAB PO SCH (14:30)
--- NOTE | 2017-05-27 14:46 | Progress Note ---
Medicine Progress Note Date & Time of Visit: May 27, 2017 at 11:37. Subjective Pt was seen an examined Lying in bed with no distress Pt said that he feels OK He said that his hip pain seems to be controlled Denies any chest pain, palpitation, dizziness and SOB Objective Last 8 Hrs Date Time Temp Pulse Resp B/P (MAP) Pulse Ox O2 Delivery O2 Flow Rate FiO2 05/27/17 14:02 73 131/75 (93) 05/27/17 08:00 Room Air 05/27/17 07:16 36.5 73 16 102/66 (78) 93 Room Air Physical Exam: General- No acute distress Head- atraumatic Eyes- PERRL, EOMI, ENT- oropharynx clear Neck- supple, no JVD Lungs- clear to auscultation Heart- regular rhythm Abdomen- normal bowel sounds, soft Extremities-no calf tenderness, Left hip pain, able to move LE toes Neuro- alert, oriented x 3; PERRL, EOMI Skin- warm & dry Laboratory Results: Last 24 Hours Test 05/26/17 17:13 05/27/17 01:46 05/27/17 05:56 05/27/17 11:56 Bedside Glucose 140 mg/dl Vancomycin Level Trough 23.0 mcg/ml White Blood Count 9.55 K/uL Red Blood Count 2.79 M/uL Hemoglobin 7.9 g/dL Hematocrit 24.5 % Mean Corpuscular Volume 87.8 fL Mean Corpuscular Hemoglobin 28.3 pg Mean Corpuscular Hemoglobin Concent 32.2 g/dl RDW Standard Deviation 51.7 fL RDW Coefficient of Variation 16.1 % Platelet Count 280 K/uL Mean Platelet Volume 8.3 fL Sodium Level 136 mmol/L Potassium Level 3.9 mmol/L Chloride Level 103 mmol/L Carbon Dioxide Level 27 mmol/L Anion Gap 6.0 mmol/L Blood Urea Nitrogen 11 mg/dl Creatinine 0.65 mg/dl Est Creatinine Clear Calc Drug Dose 149.1 ml/min Estimated GFR () 128.7 Estimated GFR (Non- 111.1 BUN/Creatinine Ratio 16.8 Random Glucose 112 mg/dl Calcium Level 8.1 mg/dl Random Vancomycin Level 21.8 mcg/ml Assessment & Plan Left hip Dislocation S/p Left hip prosthesis infection 1 week ago has a spacer placed in the Left hip joint xray showed dislocation of left hip POD #2 s/p Open reduction, Irrigation and debridement of left hip articulating antibiotic cement spacer Continue IV abx with Vanco and Rocephin ID on board PT/OT Consult orthotic for hip abduction brace to prevent repeat dislocation Fall precaution Hgb 7.9 Monitor H/H Anemia Mostly due to acute blood loss post op Hbg 7.9 Check H/H later Will transfuse 2 units PRBC if h/h drops further HTN BP stable Continue valsartan and hydralazine Continue monitor BP Gastritis Hx Duodenal ulcer On Carafate Continue PPI Depression/Anxiety Continue venlafaxine and clonazepam prn Stable DVT PX On ASA 325 mg BID as per ortho CODE STATUS FULL CODE DISPOSITION Will need in patient rehab Consultants: Ortho ID Current Inpatient Medications: Current Inpatient Medications Medications (Trade) Dose Ordered Sig/[facility] Route Start Time Stop Time Status Last Admin Dose Admin Promethazine HCl 25 mg/Sodium Chloride 51 ml @ 204 mls/hr Q6H PRN IV 05/25/17 08:00 06/24/17 07:59 05/25/17 23:07 204 MLS/HR Vancomycin HCl (Consult) 1 ea UD PRN N/A 05/25/17 08:32 06/24/17 08:31 Hydromorphone HCl (Dilaudid Inj) 1 mg Q2HWA PRN IV 05/25/17 08:00 06/08/17 07:59 05/27/17 14:02 1 MG Ceftriaxone Sodium 2000 mg/ Dextrose 70 ml @ 100 mls/hr Q24H IV 05/25/17 09:00 07/06/17 08:59 05/27/17 09:24 100 MLS/HR Atorvastatin Calcium (Lipitor Tab) 20 mg DAILY PO 05/26/17 09:00 06/25/17 08:59 05/27/17 09:24 20 MG Clonazepam (Klonopin Tab) 0.5 mg BID PRN PO 05/25/17 16:30 06/24/17 16:29 05/27/17 10:01 0.5 MG Cyclobenzaprine HCl (Flexeril Tab) 10 mg TID PO 05/25/17 21:00 06/24/17 20:59 05/27/17 14:03 10 MG Escitalopram Oxalate (Lexapro Tab) 10 mg DAILY PO 05/26/17 09:00 06/25/17 08:59 05/27/17 09:25 10 MG Gabapentin (Neurontin Tab) 600 mg Q6 PO 05/25/17 18:00 06/24/17 17:59 05/27/17 12:27 600 MG Hydralazine HCl (Apresoline Tab) 50 mg TID PO 05/25/17 21:00 06/24/17 20:59 05/27/17 14:03 50 MG Sucralfate (Carafate Tab) 1 gm DAILY PO 05/26/17 09:00 06/25/17 08:59 05/27/17 09:24 1 GM Valsartan (Diovan Tab) 320 mg DAILY PO 05/26/17 09:00 06/25/17 08:59 Future hold Venlafaxine HCl (effeXOR EXTENDED REL CAP) 75 mg DAILY PO 05/26/17 09:00 06/25/17 08:59 05/27/17 09:24 75 MG Zolpidem Tartrate (Ambien Tab) 10 mg HS PO 05/25/17 21:00 06/24/17 20:59 05/26/17 23:51 10 MG Ferrous Sulfate (Feosol Tab) 325 mg TIDM PO 05/26/17 08:30 06/25/17 08:29 05/27/17 12:27 325 MG Pantoprazole Sodium (Protonix Tab) 40 mg BID PO 05/25/17 21:00 06/24/17 20:59 05/27/17 09:24 40 MG Oxycodone HCl (Roxicodone Immediate Rel Tab) 1 TABLET FOR PAIN RATING... Q4H PRN PO 05/25/17 20:45 06/08/17 20:44 05/27/17 12:27 10 MG Morphine Sulfate (MoRPHine SULFATE INJ) 4 mg Q4 PRN IV 05/25/17 20:45 06/08/17 20:44 Senna (Senokot Tab) 17.2 mg HS PO 05/25/17 21:00 06/24/17 20:59 05/26/17 20:50 17.2 MG Docusate Sodium (coLACE CAP) 100 mg BID PO 05/25/17 21:00 06/24/17 20:59 05/27/17 09:24 100 MG Diphenhydramine HCl (Benadryl Cap) 25 mg Q8H PRN PO 05/25/17 20:45 06/24/17 20:44 Multivitamins (Multivitamin Tab) 1 tab QAM PO 05/26/17 09:00 06/25/17 08:59 05/27/17 09:24 1 TAB Ondansetron HCl (Zofran Inj) 4 mg Q6H PRN IV 05/25/17 20:45 06/24/17 20:44 05/26/17 05:07 4 MG Aspirin (Ecotrin Tab) 325 mg BID PO 05/25/17 21:00 06/24/17 20:59 05/27/17 09:24 325 MG Heparin Sodium (Porcine) (Heparin 10 Unit/ ml 5 ml Flush) 5 ml PRN PRN FLUSH 05/26/17 02:15 06/25/17 02:14 05/27/17 14:02 5 ML Vancomycin HCl 1500 mg/Sodium Chloride 530 ml @ 200 mls/hr Q12H IV 05/27/17 15:00 07/06/17 14:59
--- NOTE | 2017-05-27 16:47 | Pharmacy Progress Note ---
Pharmacy Abx Dose Progress Nt Date of Service May 27, 2017. Pharmacy Dosing Scope The patient is currently receiving the following antimicrobial agents per Pharmacy consult: Vancomycin 1,500 mg IV every 8 hours Objective Height (Feet): 5 Height (Inches): 10.00 Weight (Kilograms): 91.000 Vital Signs (Past 12Hrs) Vital Signs Past 12 Hours Date Time Temp Pulse Resp B/P (MAP) Pulse Ox O2 Delivery O2 Flow Rate FiO2 05/27/17 15:20 36.6 86 16 113/72 (86) 92 Room Air 05/27/17 14:02 73 131/75 (93) 05/27/17 08:00 Room Air 05/27/17 07:16 36.5 73 16 102/66 (78) 93 Room Air Lab Results (24Hrs) Item Value Date Time Creatinine 0.65 mg/dl 05/27/17 0556 Est Creatinine Clear Calc Drug Dose 149.1 ml/min 05/27/17 0556 Estimated GFR () 128.7 05/27/17 0556 Estimated GFR (Non- 111.1 05/27/17 0556 Laboratory Tests (24 Hours) Test 05/27/17 05:56 White Blood Count 9.55 K/uL (4.8-10.8) Micro Results Date/Time Source Procedure Growth Status 05/25/17 19:30 Incision Site Hip , Left Gram Stain - Final Resulted 05/25/17 19:30 Incision Site Hip , Left Bacterial Culture - Preliminary NO GROWTH TO DATE. Resulted 05/25/17 19:30 Incision Site Hip , Left Gram Stain - Final Resulted 05/25/17 19:30 Incision Site Hip , Left Bacterial Culture - Preliminary NO GROWTH TO DATE. Resulted 05/25/17 19:30 Incision Site Hip , Left Gram Stain - Final Resulted 05/25/17 19:30 Incision Site Hip , Left Bacterial Culture - Preliminary NO GROWTH TO DATE. Resulted Risk Factors for Resistance * Resident in a long-term or extended-care facility * Hospitalization for 48 hours or more within the past 90 days * Current hospitalization > 5 days * Chronic dialysis within the past 30 days * Immunocompromised (chronic steroid therapy, chemotherapy, immunomodulators) * History of infection with a multidrug-resistant organism: [organism] [site of infection] [date] * Antimicrobial use within the last 90 days [include specific drugs, if known] Assessment & Plan Assessment 52 year old male receiving Vancomycin 1,500 mg IV every 8 hours and Ceftriaxone 2,000 mg IV every 24 hours for treatment infected left hip prosthesis admitted for dislocated left hip antibiotic spacer. * s/p surgery on 05/17/17 for infected prothesis; antibiotic spacer placed and patient ordered to complete 6 weeks of vanc + ceftriaxone IV Plan Vancomycin IV * Trough level of 23 mcg/mL 05/27 @01:46 supratherapeutic. Patient received 02: 00 dose of vancomycin on 05/27. * Repeat level at 10 hours after last dose reported as 21.8 mcg/ml (05/27/17 @12 :00) and is supratherapeutic. * Change to Vancomycin 1,500 mg IV every 12 hours * Goal trough level for [facility] : 15 to 20 mcg/mL * Trough or random level ordered for: 05/28/17 @14:30 Pharmacy will continue to follow and will adjust dose/frequency as necessary. Thank you.
[2017-05-27 17:01] LABS: HEMOGLOBIN 7.8 g/dL (14.0-18.0)
[2017-05-27] MEDS: SENNA 8.6 MG TAB PO SCH (21:47)
[2017-05-27] MEDS: ZOLPIDEM TARTRATE 10 MG TAB PO SCH (23:16)
[2017-05-28] VITALS (9 sets, daily range): BP systolic 128–174; BP diastolic 71–103; PULSE 69–86; TEMP 36.5–36.8; O2SAT 93–97
[2017-05-28] MEDS: HYDROmorphone INJ 1 MG/ML SYR IV PRN ×6 (01:49→23:46)
[2017-05-28] MEDS: VANCOMYCIN INJ 1,500 MG in SODIUM CHLORIDE 0.9% 500ML 500 ML IV SCH ×2 (03:23→16:17)
[2017-05-28] MEDS: OXYCODONE HCL IR 5 MG TAB (IMMEDIATE RELEASE) PO PRN ×5 (03:24→21:05)
[2017-05-28] MEDS: GABAPENTIN 600 MG TAB PO SCH ×4 (05:50→23:45)
[2017-05-28 07:22] LABS: HEMATOCRIT 29.2 % (42-52); HEMOGLOBIN 9.6 g/dL (14.0-18.0); MEAN CELL VOLUME 86.6 fL (80-100); MEAN CORPUSCULAR HEMOGLOBIN 28.5 pg (25-34); MEAN CORPUSCULAR HGB CONC 32.9 g/dl (32-36); MEAN PLATELET VOLUME 8.6 fL (7.4-10.4); PLATELET COUNT 255 K/uL (130-400); RED CELL DISTRIBUTION WIDTH CV 16.4 % (11.5-14.5); RED CELL DISTRIBUTION WIDTH SD 51.7 fL (36.4-46.3); WHITE BLOOD COUNT 9.31 K/uL (4.8-10.8)
[2017-05-28 07:28] LABS: HEMOGLOBIN A1C 5.4 % (4.5-5.6)
[2017-05-28] MEDS: FERROUS SULFATE 325 MG TAB PO SCH ×3 (07:43→17:45)
[2017-05-28] MEDS: ASPIRIN 325 MG ECTAB PO SCH ×2 (07:44→21:03)
[2017-05-28] MEDS: SUCRALFATE 1 GM TAB PO SCH (07:45)
[2017-05-28] MEDS: DOCUSATE SODIUM 100 MG CAP PO SCH ×2 (07:45→21:03)
[2017-05-28] MEDS: MULTIVITAMIN TAB PO SCH (07:46)
[2017-05-28] MEDS: VALSARTAN 80 MG TAB PO SCH (07:47)
[2017-05-28] MEDS: VENLAFAXINE HCL XR 75 MG CAPXR PO SCH (07:47)
[2017-05-28] MEDS: ATORVASTATIN 20 MG TAB PO SCH (07:48)
[2017-05-28] MEDS: CYCLOBENZAPRINE HCL 10 MG TAB PO SCH ×3 (07:48→21:03)
[2017-05-28] MEDS: ESCITALOPRAM OXALATE 10 MG TAB PO SCH (07:48)
[2017-05-28] MEDS: PANTOprazole SOD 40 MG TAB PO SCH ×2 (07:49→21:03)
[2017-05-28 07:57] LABS: CREATININE 0.62 mg/dl (0.60-1.40)
[2017-05-28] MEDS: CLONAZEPAM 0.5 MG TAB PO PRN ×2 (08:09→21:04)
[2017-05-28] MEDS: CEFTRIAXONE SOD INJ 2,000 MG in DEXTROSE 5% 50ML 50 ML IV SCH (08:10)
--- NOTE | 2017-05-28 09:10 | Orthopedic Progress Note ---
Orthopedic Progress Note Date of Service May 28, 2017. Subjective Post OP Day: 3 Reports: feeling well (Moderate pain) Objective calves soft nontender, N/V intact, dressing C/D/I (Prevena in place), toes mobile Date Time Temp Pulse Resp B/P (MAP) Pulse Ox O2 Delivery O2 Flow Rate FiO2 05/28/17 08:03 36.7 74 16 174/103 (126) 97 Room Air 174/96 (122) 05/28/17 02:31 36.8 75 18 129/92 93 05/28/17 01:37 36.5 69 16 146/94 96 05/28/17 01:20 36.7 71 16 137/81 93 05/28/17 01:00 36.8 72 18 128/81 94 05/28/17 00:45 36.6 69 18 145/71 95 05/28/17 00:28 36.7 71 16 128/91 94 05/27/17 23:50 Room Air 05/27/17 23:45 36.7 74 18 130/71 93 05/27/17 22:55 36.8 71 18 137/85 95 05/27/17 22:24 36.7 68 18 127/83 96 05/27/17 21:55 36.7 71 18 123/79 94 05/27/17 21:40 36.7 71 18 133/81 95 05/27/17 21:22 36.7 74 18 135/80 93 05/27/17 16:30 Room Air 05/27/17 15:20 36.6 86 16 113/72 (86) 92 Room Air 05/27/17 14:02 73 131/75 (93) Laboratory Results 24 Hours: Test 05/27/17 16:52 05/28/17 07:02 Hematocrit 24.0 % 29.2 % Hemoglobin 7.8 g/dL 9.6 g/dL Assessment & Plan Assessment: POD #3 s/p Open reduction, Irrigation and debridement of left hip articulating antibiotic cement spacer Plan: -IV abx per ID -Prevena wound vac -Pain control -DVT PPX - ASA BID -NWB LLE -Maintain abduction pillow at all times when in bed, -Abduction brace when out of bed- consult placed for jorgito logan to fit for hip abduction brace -PT/OT PO Xray showing nondistracted fracture of the femoral shaft around the distal arthroplasty stem. Discharge Planning Discharge Planning: uncertain DVT Prophylaxis: TEDs, SCDs, ASA
[2017-05-28] MEDS: OXYCODONE HCL 10 MG TABCR (OXYCONTIN) PO SCH ×2 (10:16→21:04)
[2017-05-28] MEDS ORDERED: VANCOMYCIN TROUGH ONE (14:30)
--- NOTE | 2017-05-28 15:55 | Pharmacy Progress Note ---
Pharmacy Antibiotic Prog Note Date of Service May 28, 2017. Subjective The patient is currently receiving vancomycin 1500 mg IV every 12 hours. The patient is currently on day # 4 of vancomycin IV therapy. Objective Height (Feet): 5 Height (Inches): 10.00 Weight (Kilograms): 91.000 Lab Results (24hrs): Test 05/27/17 16:52 05/28/17 07:02 05/28/17 14:27 Hemoglobin 7.8 g/dL (14.0-18.0) 9.6 g/dL (14.0-18.0) Hematocrit 24.0 % (42-52) 29.2 % (42-52) White Blood Count 9.31 K/uL (4.8-10.8) Red Blood Count 3.37 M/uL (4.7-6.1) Mean Corpuscular Volume 86.6 fL (80-100) Mean Corpuscular Hemoglobin 28.5 pg (25-34) Mean Corpuscular Hemoglobin Concent 32.9 g/dl (32-36) RDW Standard Deviation 51.7 fL (36.4-46.3) RDW Coefficient of Variation 16.4 % (11.5-14.5) Platelet Count 255 K/uL (130-400) Mean Platelet Volume 8.6 fL (7.4-10.4) Creatinine 0.62 mg/dl (0.60-1.40) Est Creatinine Clear Calc Drug Dose 156.3 ml/min Estimated GFR () 131.3 Estimated GFR (Non- 113.3 Vancomycin Level Trough 16.2 mcg/ml (SEE COMMENT) Assessment & Plan Assessment * 52 yo M w hip dislocation of ARNAUD. 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 * Patient is afebrile with normal WBC * SCr stable and at/near baseline * Vancomycin * Goal trough 15-20 mcg/mL * Trough of 16.2 mcg/mL * Continue current regimen * Obtain repeat trough in 3 days Plan * Continue vancomycin 1500 mg IV q12h * Repeat trough 05/31 @ 0230 Pharmacy will continue to follow and will adjust dose/frequency as necessary. Thank you
--- NOTE | 2017-05-28 19:35 | Progress Note ---
Medicine Progress Note Date & Time of Visit: May 28, 2017 at 13:31. Subjective Pt was seen and examined Lying in bed with no distress Pt said that he continue to have pain in the left hip Denies any numbness, dizziness, palpitation and SOB Objective Last 8 Hrs Date Time Temp Pulse Resp B/P (MAP) Pulse Ox O2 Delivery O2 Flow Rate FiO2 05/28/17 15:02 36.7 86 18 148/96 (113) 93 Room Air Physical Exam: General- No acute distress Head- atraumatic Eyes- PERRL, EOMI, ENT- oropharynx clear Neck- supple, no JVD Lungs- clear to auscultation Heart- regular rhythm Abdomen- normal bowel sounds, soft Extremities-no calf tenderness, Left hip pain, able to move LE toes Neuro- alert, oriented x 3; PERRL, EOMI Skin- warm & dry Laboratory Results: Last 24 Hours Test 05/28/17 07:02 05/28/17 14:27 White Blood Count 9.31 K/uL Red Blood Count 3.37 M/uL Hemoglobin 9.6 g/dL Hematocrit 29.2 % Mean Corpuscular Volume 86.6 fL Mean Corpuscular Hemoglobin 28.5 pg Mean Corpuscular Hemoglobin Concent 32.9 g/dl RDW Standard Deviation 51.7 fL RDW Coefficient of Variation 16.4 % Platelet Count 255 K/uL Mean Platelet Volume 8.6 fL Creatinine 0.62 mg/dl Est Creatinine Clear Calc Drug Dose 156.3 ml/min Estimated GFR () 131.3 Estimated GFR (Non- 113.3 Vancomycin Level Trough 16.2 mcg/ml Assessment & Plan Left hip Dislocation S/p Left hip prosthesis infection 1 week ago has a spacer placed in the Left hip joint xray showed dislocation of left hip POD #3 s/p Open reduction, Irrigation and debridement of left hip articulating antibiotic cement spacer Continue IV abx with Vanco and Rocephin ID on board PT/OT Consult placed for orthotic for hip abduction brace to prevent repeat dislocation Fall precaution Hgb 9.6 Monitor H/H Anemia Mostly due to acute blood loss post op Received 2 units PRBC yesterday Hba1c 9.6 today Continue monitor CBC Elevated Glucose related to steroid Hba1c 5.4 HTN BP stable Continue valsartan and hydralazine Continue monitor BP Gastritis Hx Duodenal ulcer On Carafate Continue PPI Depression/Anxiety Continue venlafaxine and clonazepam prn Stable DVT PX On ASA 325 mg BID as per ortho CODE STATUS FULL CODE DISPOSITION Will need in patient rehab Consultants: Ortho ID Current Inpatient Medications: Current Inpatient Medications Medications (Trade) Dose Ordered Sig/Fito Route Start Time Stop Time Status Last Admin Dose Admin Promethazine HCl 25 mg/Sodium Chloride 51 ml @ 204 mls/hr Q6H PRN IV 05/25/17 08:00 06/24/17 07:59 05/25/17 23:07 204 MLS/HR Vancomycin HCl (Consult) 1 ea UD PRN N/A 05/25/17 08:32 06/24/17 08:31 Hydromorphone HCl (Dilaudid Inj) 1 mg Q2HWA PRN IV 05/25/17 08:00 06/08/17 07:59 05/28/17 17:51 1 MG Ceftriaxone Sodium 2000 mg/ Dextrose 70 ml @ 100 mls/hr Q24H IV 05/25/17 09:00 07/06/17 08:59 05/28/17 08:10 100 MLS/HR Atorvastatin Calcium (Lipitor Tab) 20 mg DAILY PO 05/26/17 09:00 06/25/17 08:59 05/28/17 07:48 20 MG Clonazepam (Klonopin Tab) 0.5 mg BID PRN PO 05/25/17 16:30 06/24/17 16:29 05/28/17 08:09 0.5 MG Cyclobenzaprine HCl (Flexeril Tab) 10 mg TID PO 05/25/17 21:00 06/24/17 20:59 05/28/17 14:11 10 MG Escitalopram Oxalate (Lexapro Tab) 10 mg DAILY PO 05/26/17 09:00 06/25/17 08:59 05/28/17 07:48 10 MG Gabapentin (Neurontin Tab) 600 mg Q6 PO 05/25/17 18:00 06/24/17 17:59 05/28/17 17:50 600 MG Hydralazine HCl (Apresoline Tab) 50 mg TID PO 05/25/17 21:00 06/24/17 20:59 05/28/17 14:11 50 MG Sucralfate (Carafate Tab) 1 gm DAILY PO 05/26/17 09:00 06/25/17 08:59 05/28/17 07:45 1 GM Valsartan (Diovan Tab) 320 mg DAILY PO 05/26/17 09:00 06/25/17 08:59 Future hold 05/28/17 07:47 320 MG Venlafaxine HCl (effeXOR EXTENDED REL CAP) 75 mg DAILY PO 05/26/17 09:00 06/25/17 08:59 05/28/17 07:47 75 MG Zolpidem Tartrate (Ambien Tab) 10 mg HS PO 05/25/17 21:00 06/24/17 20:59 05/27/17 23:16 10 MG Ferrous Sulfate (Feosol Tab) 325 mg TIDM PO 05/26/17 08:30 06/25/17 08:29 05/28/17 12:25 325 MG Pantoprazole Sodium (Protonix Tab) 40 mg BID PO 05/25/17 21:00 06/24/17 20:59 05/28/17 07:49 40 MG Oxycodone HCl (Roxicodone Immediate Rel Tab) 1 TABLET FOR PAIN RATING... Q4H PRN PO 05/25/17 20:45 06/08/17 20:44 05/28/17 16:17 10 MG Morphine Sulfate (MoRPHine SULFATE INJ) 4 mg Q4 PRN IV 05/25/17 20:45 06/08/17 20:44 Senna (Senokot Tab) 17.2 mg HS PO 05/25/17 21:00 06/24/17 20:59 05/27/17 21:47 17.2 MG Docusate Sodium (coLACE CAP) 100 mg BID PO 05/25/17 21:00 06/24/17 20:59 05/28/17 07:45 100 MG Diphenhydramine HCl (Benadryl Cap) 25 mg Q8H PRN PO 05/25/17 20:45 06/24/17 20:44 Multivitamins (Multivitamin Tab) 1 tab QAM PO 05/26/17 09:00 06/25/17 08:59 05/28/17 07:46 1 TAB Ondansetron HCl (Zofran Inj) 4 mg Q6H PRN IV 05/25/17 20:45 06/24/17 20:44 05/26/17 05:07 4 MG Aspirin (Ecotrin Tab) 325 mg BID PO 05/25/17 21:00 06/24/17 20:59 05/28/17 07:44 325 MG Heparin Sodium (Porcine) (Heparin 10 Unit/ ml 5 ml Flush) 5 ml PRN PRN FLUSH 05/26/17 02:15 06/25/17 02:14 05/28/17 14:30 5 ML Vancomycin HCl 1500 mg/Sodium Chloride 530 ml @ 200 mls/hr Q12H IV 05/27/17 15:00 07/06/17 14:59 05/28/17 16:17 200 MLS/HR Oxycodone HCl (Oxycontin Tab) 10 mg Q12 PO 05/28/17 10:30 06/11/17 10:29 05/28/17 10:16 10 MG
[2017-05-28] MEDS: SENNA 8.6 MG TAB PO SCH (21:03)
[2017-05-28] MEDS: ZOLPIDEM TARTRATE 10 MG TAB PO SCH (23:45)
[2017-05-29] MEDS: OXYCODONE HCL IR 5 MG TAB (IMMEDIATE RELEASE) PO PRN ×5 (01:31→21:00)
[2017-05-29] MEDS: VANCOMYCIN INJ 1,500 MG in SODIUM CHLORIDE 0.9% 500ML 500 ML IV SCH ×2 (02:55→14:33)
[2017-05-29] MEDS: HYDROmorphone INJ 1 MG/ML SYR IV PRN ×6 (02:59→21:15)
[2017-05-29] MEDS: GABAPENTIN 600 MG TAB PO SCH ×4 (06:07→23:37)
[2017-05-29 06:14] LABS: HEMATOCRIT 30.4 % (42-52); MEAN CELL VOLUME 86.6 fL (80-100); MEAN CORPUSCULAR HEMOGLOBIN 28.5 pg (25-34); MEAN CORPUSCULAR HGB CONC 32.9 g/dl (32-36); MEAN PLATELET VOLUME 8.9 fL (7.4-10.4); PLATELET COUNT 327 K/uL (130-400); RED CELL DISTRIBUTION WIDTH CV 16.1 % (11.5-14.5); RED CELL DISTRIBUTION WIDTH SD 50.9 fL (36.4-46.3); WHITE BLOOD COUNT 8.98 K/uL (4.8-10.8)
[2017-05-29 07:09] VITALS: BP 146/90; PULSE 65; TEMP 36.8; O2SAT 96
[2017-05-29] MEDS: CEFTRIAXONE SOD INJ 2,000 MG in DEXTROSE 5% 50ML 50 ML IV SCH (08:11)
[2017-05-29] MEDS: SUCRALFATE 1 GM TAB PO SCH (08:18)
[2017-05-29] MEDS: PANTOprazole SOD 40 MG TAB PO SCH ×2 (08:19→21:03)
[2017-05-29] MEDS: MULTIVITAMIN TAB PO SCH (08:19)
[2017-05-29] MEDS: FERROUS SULFATE 325 MG TAB PO SCH ×3 (08:19→17:47)
[2017-05-29] MEDS: DOCUSATE SODIUM 100 MG CAP PO SCH ×2 (08:20→21:01)
[2017-05-29] MEDS: ESCITALOPRAM OXALATE 10 MG TAB PO SCH (08:20)
[2017-05-29] MEDS: VALSARTAN 80 MG TAB PO SCH (08:20)
[2017-05-29] MEDS: VENLAFAXINE HCL XR 75 MG CAPXR PO SCH (08:21)
[2017-05-29] MEDS: ATORVASTATIN 20 MG TAB PO SCH (08:21)
[2017-05-29] MEDS: CYCLOBENZAPRINE HCL 10 MG TAB PO SCH ×3 (08:21→21:02)
[2017-05-29] MEDS: ASPIRIN 325 MG ECTAB PO SCH ×2 (08:22→21:02)
--- NOTE | 2017-05-29 08:53 | Orthopedic Progress Note ---
Orthopedic Progress Note Date of Service May 29, 2017. Subjective Post OP Day: 4 Reports: feeling well (better pain control this AM) Objective calves soft nontender, N/V intact, dressing C/D/I, toes mobile Date Time Temp Pulse Resp B/P (MAP) Pulse Ox O2 Delivery O2 Flow Rate FiO2 05/29/17 07:09 36.8 65 18 146/90 (108) 96 Room Air 05/28/17 23:30 36.7 84 16 137/86 (103) 94 Room Air 05/28/17 20:00 Room Air 05/28/17 15:02 36.7 86 18 148/96 (113) 93 Room Air 05/28/17 09:45 Room Air Laboratory Results 24 Hours: Test 05/29/17 05:26 Hematocrit 30.4 % Hemoglobin 10.0 g/dL Assessment & Plan Assessment: POD #4 s/p Open reduction, Irrigation and debridement of left hip articulating antibiotic cement spacer Plan: -IV abx per ID -Prevena wound vac -Pain control -DVT PPX - ASA BID -NWB LLE -Maintain abduction pillow at all times when in bed, -Abduction brace when out of bed- consult placed for jorgito logan to fit for hip abduction brace -PT/OT PO Xray showing nondistracted fracture of the femoral shaft around the distal arthroplasty stem. [facility] he can get abduction brace Discharge Planning Discharge Planning: uncertain DVT Prophylaxis: TEDs, SCDs, ASA
[2017-05-29] MEDS: OXYCODONE HCL 10 MG TABCR (OXYCONTIN) PO SCH ×2 (09:17→21:00)
[2017-05-29] MEDS: CLONAZEPAM 0.5 MG TAB PO PRN ×2 (09:17→17:47)
[2017-05-29 14:58] VITALS: BP 134/87; PULSE 91; TEMP 36.7; O2SAT 94
--- NOTE | 2017-05-29 16:41 | Progress Note ---
Medicine Progress Note Date & Time of Visit: May 29, 2017 at 16:40. Subjective Pt was seen and examined Lying in bed with no distress Denies any chest pain, palpitation, dizziness and SOB Objective Last 8 Hrs Date Time Temp Pulse Resp B/P (MAP) Pulse Ox O2 Delivery O2 Flow Rate FiO2 05/29/17 14:58 36.7 91 18 134/87 (103) 94 Room Air Physical Exam: General- No acute distress Head- atraumatic Eyes- PERRL, EOMI, ENT- oropharynx clear Neck- supple, no JVD Lungs- clear to auscultation Heart- regular rhythm Abdomen- normal bowel sounds, soft Extremities-no calf tenderness, Left hip pain, able to move LE toes Neuro- alert, oriented x 3; PERRL, EOMI Skin- warm & dry Laboratory Results: Last 24 Hours Test 05/29/17 05:26 White Blood Count 8.98 K/uL Red Blood Count 3.51 M/uL Hemoglobin 10.0 g/dL Hematocrit 30.4 % Mean Corpuscular Volume 86.6 fL Mean Corpuscular Hemoglobin 28.5 pg Mean Corpuscular Hemoglobin Concent 32.9 g/dl RDW Standard Deviation 50.9 fL RDW Coefficient of Variation 16.1 % Platelet Count 327 K/uL Mean Platelet Volume 8.9 fL Assessment & Plan Left hip Dislocation S/p Left hip prosthesis infection 1 week ago has a spacer placed in the Left hip joint xray showed dislocation of left hip POD #4 s/p Open reduction, Irrigation and debridement of left hip articulating antibiotic cement spacer Continue IV abx with Vanco and Rocephin ID on board PT/OT Consult placed for orthotic for hip abduction brace to prevent repeat dislocation Fall precaution Hgb 10.0 Monitor H/H Anemia Mostly due to acute blood loss post op Received 2 units PRBC during this admission Hba1c 10 today Continue monitor CBC Elevated Glucose related to steroid Hba1c 5.4 HTN BP stable Continue valsartan and hydralazine Continue monitor BP Gastritis Hx Duodenal ulcer On Carafate Continue PPI Depression/Anxiety Continue venlafaxine and clonazepam prn Stable DVT PX On ASA 325 mg BID as per ortho CODE STATUS FULL CODE DISPOSITION Will need in patient rehab Consultants: Ortho ID Current Inpatient Medications: Current Inpatient Medications Medications (Trade) Dose Ordered Sig/Fito Route Start Time Stop Time Status Last Admin Dose Admin Promethazine HCl 25 mg/Sodium Chloride 51 ml @ 204 mls/hr Q6H PRN IV 05/25/17 08:00 06/24/17 07:59 05/25/17 23:07 204 MLS/HR Vancomycin HCl (Consult) 1 ea UD PRN N/A 05/25/17 08:32 06/24/17 08:31 Hydromorphone HCl (Dilaudid Inj) 1 mg Q2HWA PRN IV 05/25/17 08:00 06/08/17 07:59 05/29/17 14:33 1 MG Ceftriaxone Sodium 2000 mg/ Dextrose 70 ml @ 100 mls/hr Q24H IV 05/25/17 09:00 07/06/17 08:59 05/29/17 08:11 100 MLS/HR Atorvastatin Calcium (Lipitor Tab) 20 mg DAILY PO 05/26/17 09:00 06/25/17 08:59 05/29/17 08:21 20 MG Clonazepam (Klonopin Tab) 0.5 mg BID PRN PO 05/25/17 16:30 06/24/17 16:29 05/29/17 09:17 0.5 MG Cyclobenzaprine HCl (Flexeril Tab) 10 mg TID PO 05/25/17 21:00 06/24/17 20:59 05/29/17 14:32 10 MG Escitalopram Oxalate (Lexapro Tab) 10 mg DAILY PO 05/26/17 09:00 06/25/17 08:59 05/29/17 08:20 10 MG Gabapentin (Neurontin Tab) 600 mg Q6 PO 05/25/17 18:00 06/24/17 17:59 05/29/17 14:32 600 MG Hydralazine HCl (Apresoline Tab) 50 mg TID PO 05/25/17 21:00 06/24/17 20:59 05/29/17 14:32 50 MG Sucralfate (Carafate Tab) 1 gm DAILY PO 05/26/17 09:00 06/25/17 08:59 05/29/17 08:18 1 GM Valsartan (Diovan Tab) 320 mg DAILY PO 05/26/17 09:00 06/25/17 08:59 Future hold 05/29/17 08:20 320 MG Venlafaxine HCl (effeXOR EXTENDED REL CAP) 75 mg DAILY PO 05/26/17 09:00 06/25/17 08:59 05/29/17 08:21 75 MG Zolpidem Tartrate (Ambien Tab) 10 mg HS PO 05/25/17 21:00 06/24/17 20:59 05/28/17 23:45 10 MG Ferrous Sulfate (Feosol Tab) 325 mg TIDM PO 05/26/17 08:30 06/25/17 08:29 05/29/17 14:32 325 MG Pantoprazole Sodium (Protonix Tab) 40 mg BID PO 05/25/17 21:00 06/24/17 20:59 05/29/17 08:19 40 MG Oxycodone HCl (Roxicodone Immediate Rel Tab) 1 TABLET FOR PAIN RATING... Q4H PRN PO 05/25/17 20:45 06/08/17 20:44 05/29/17 15:52 10 MG Morphine Sulfate (MoRPHine SULFATE INJ) 4 mg Q4 PRN IV 05/25/17 20:45 06/08/17 20:44 Senna (Senokot Tab) 17.2 mg HS PO 05/25/17 21:00 06/24/17 20:59 05/28/17 21:03 17.2 MG Docusate Sodium (coLACE CAP) 100 mg BID PO 05/25/17 21:00 06/24/17 20:59 05/29/17 08:20 100 MG Diphenhydramine HCl (Benadryl Cap) 25 mg Q8H PRN PO 05/25/17 20:45 06/24/17 20:44 Multivitamins (Multivitamin Tab) 1 tab QAM PO 05/26/17 09:00 06/25/17 08:59 05/29/17 08:19 1 TAB Ondansetron HCl (Zofran Inj) 4 mg Q6H PRN IV 05/25/17 20:45 06/24/17 20:44 05/26/17 05:07 4 MG Aspirin (Ecotrin Tab) 325 mg BID PO 05/25/17 21:00 06/24/17 20:59 05/29/17 08:22 325 MG Heparin Sodium (Porcine) (Heparin 10 Unit/ ml 5 ml Flush) 5 ml PRN PRN FLUSH 05/26/17 02:15 06/25/17 02:14 05/29/17 11:37 5 ML Vancomycin HCl 1500 mg/Sodium Chloride 530 ml @ 200 mls/hr Q12H IV 05/27/17 15:00 07/06/17 14:59 05/29/17 14:33 200 MLS/HR Oxycodone HCl (Oxycontin Tab) 10 mg Q12 PO 05/28/17 10:30 06/11/17 10:29 05/29/17 09:17 10 MG
[2017-05-29] MEDS: SENNA 8.6 MG TAB PO SCH (21:01)
[2017-05-29 22:50] VITALS: BP 124/74; PULSE 83; TEMP 36.7; O2SAT 93
[2017-05-29] MEDS: ZOLPIDEM TARTRATE 10 MG TAB PO SCH (23:37)
[2017-05-30] MEDS: HYDROmorphone INJ 1 MG/ML SYR IV PRN ×7 (00:23→22:24)
[2017-05-30] MEDS: OXYCODONE HCL IR 5 MG TAB (IMMEDIATE RELEASE) PO PRN ×5 (02:46→20:34)
[2017-05-30] MEDS: VANCOMYCIN INJ 1,500 MG in SODIUM CHLORIDE 0.9% 500ML 500 ML IV SCH ×2 (02:46→14:34)
[2017-05-30] MEDS: GABAPENTIN 600 MG TAB PO SCH ×4 (05:51→23:51)
[2017-05-30 06:57] LABS: CREATININE 0.61 mg/dl (0.60-1.40)
[2017-05-30 07:24] VITALS: BP 139/94; PULSE 73; TEMP 36.5; O2SAT 95
--- NOTE | 2017-05-30 07:55 | Orthopedic Progress Note ---
Orthopedic Progress Note Date of Service May 30, 2017. Subjective Post OP Day: 5 Reports: feeling well, complaints (hip pain all the time), Denies: chest pain, SOB, nausea / vomiting, light headedness, calf pain Additional Notes: Patient states he feels well with his only complaint being hip pain all the time. Objective calves soft nontender, N/V intact, capillary refill less than 2 sec., dressing C /D/I, toes mobile Date Time Temp Pulse Resp B/P (MAP) Pulse Ox O2 Delivery O2 Flow Rate FiO2 05/30/17 07:24 36.5 73 15 139/94 (109) 95 Room Air 05/30/17 00:13 Room Air 05/29/17 22:50 36.7 83 16 124/74 (91) 93 Room Air 05/29/17 15:30 Room Air 05/29/17 14:58 36.7 91 18 134/87 (103) 94 Room Air 05/29/17 08:20 Room Air Assessment & Plan Assessment: POD #5 s/p Open reduction, Irrigation and debridement of left hip articulating antibiotic cement spacer Plan: -IV abx per ID -Prevena wound vac -Pain control -DVT PPX - ASA BID -NWB LLE -Maintain abduction pillow at all times when in bed, -Abduction brace when out of bed- consult placed for jorgito logan to fit for hip abduction brace - hopefully we will be able to get today and be discharged today. -PT/OT PO Xray showing nondistracted fracture of the femoral shaft around the distal arthroplasty stem. Pt hopeful for d/c back to [facility] today if he can get brace and insurance authorization. Discharge Planning Discharge Planning: uncertain DVT Prophylaxis: TEDs, SCDs, ASA
[2017-05-30] MEDS: OXYCODONE HCL 10 MG TABCR (OXYCONTIN) PO SCH ×2 (08:25→21:08)
[2017-05-30] MEDS: CYCLOBENZAPRINE HCL 10 MG TAB PO SCH ×3 (08:26→21:07)
[2017-05-30] MEDS: FERROUS SULFATE 325 MG TAB PO SCH ×3 (08:27→18:57)
[2017-05-30] MEDS: ESCITALOPRAM OXALATE 10 MG TAB PO SCH (08:27)
[2017-05-30] MEDS: VENLAFAXINE HCL XR 75 MG CAPXR PO SCH (08:28)
[2017-05-30] MEDS: PANTOprazole SOD 40 MG TAB PO SCH ×2 (08:28→21:10)
[2017-05-30] MEDS: SUCRALFATE 1 GM TAB PO SCH (08:28)
[2017-05-30] MEDS: MULTIVITAMIN TAB PO SCH (08:28)
[2017-05-30] MEDS: VALSARTAN 80 MG TAB PO SCH (08:29)
[2017-05-30] MEDS: ASPIRIN 325 MG ECTAB PO SCH ×2 (08:30→21:07)
[2017-05-30] MEDS: ATORVASTATIN 20 MG TAB PO SCH (08:30)
[2017-05-30] MEDS: CEFTRIAXONE SOD INJ 2,000 MG in DEXTROSE 5% 50ML 50 ML IV SCH (08:31)
[2017-05-30] MEDS: DOCUSATE SODIUM 100 MG CAP PO SCH ×2 (08:31→21:09)
[2017-05-30] MEDS: CLONAZEPAM 0.5 MG TAB PO PRN ×2 (08:39→21:39)
[2017-05-30 13:45] VITALS: BP 129/75; PULSE 98
--- NOTE | 2017-05-30 14:37 | Infectious Disease Progress Nt ---
Progress Note Date of Service May 30, 2017. Subjective Pt evaluation today including: conversation w/ patient, physical exam, chart review, lab review, review of studies, conversation w/ application security consultant, review of inpatient medication list Events reviewed. Operative cultures all negative. Remains afebrile. Tolerating Abx. No other new complaints. All Other Systems: Reviewed and Negative Medications Current Inpatient Medications Medications (Trade) Dose Ordered Sig/Fito Route Start Time Stop Time Status Last Admin Dose Admin Promethazine HCl 25 mg/Sodium Chloride 51 ml @ 204 mls/hr Q6H PRN IV 05/25/17 08:00 06/24/17 07:59 05/25/17 23:07 204 MLS/HR Vancomycin HCl (Consult) 1 ea UD PRN N/A 05/25/17 08:32 06/24/17 08:31 Hydromorphone HCl (Dilaudid Inj) 1 mg Q2HWA PRN IV 05/25/17 08:00 06/08/17 07:59 05/30/17 12:06 1 MG Ceftriaxone Sodium 2000 mg/ Dextrose 70 ml @ 100 mls/hr Q24H IV 05/25/17 09:00 07/06/17 08:59 05/30/17 08:31 100 MLS/HR Atorvastatin Calcium (Lipitor Tab) 20 mg DAILY PO 05/26/17 09:00 06/25/17 08:59 05/30/17 08:30 20 MG Clonazepam (Klonopin Tab) 0.5 mg BID PRN PO 05/25/17 16:30 06/24/17 16:29 05/30/17 08:39 0.5 MG Cyclobenzaprine HCl (Flexeril Tab) 10 mg TID PO 05/25/17 21:00 06/24/17 20:59 05/30/17 13:45 10 MG Escitalopram Oxalate (Lexapro Tab) 10 mg DAILY PO 05/26/17 09:00 06/25/17 08:59 05/30/17 08:27 10 MG Gabapentin (Neurontin Tab) 600 mg Q6 PO 05/25/17 18:00 06/24/17 17:59 05/30/17 08:28 600 MG Hydralazine HCl (Apresoline Tab) 50 mg TID PO 05/25/17 21:00 06/24/17 20:59 05/30/17 13:46 50 MG Sucralfate (Carafate Tab) 1 gm DAILY PO 05/26/17 09:00 06/25/17 08:59 05/30/17 08:28 1 GM Valsartan (Diovan Tab) 320 mg DAILY PO 05/26/17 09:00 06/25/17 08:59 Future hold 05/30/17 08:29 320 MG Venlafaxine HCl (effeXOR EXTENDED REL CAP) 75 mg DAILY PO 05/26/17 09:00 06/25/17 08:59 05/30/17 08:28 75 MG Zolpidem Tartrate (Ambien Tab) 10 mg HS PO 05/25/17 21:00 06/24/17 20:59 05/29/17 23:37 10 MG Ferrous Sulfate (Feosol Tab) 325 mg TIDM PO 05/26/17 08:30 06/25/17 08:29 05/30/17 12:49 325 MG Pantoprazole Sodium (Protonix Tab) 40 mg BID PO 05/25/17 21:00 06/24/17 20:59 05/30/17 08:28 40 MG Oxycodone HCl (Roxicodone Immediate Rel Tab) 1 TABLET FOR PAIN RATING... Q4H PRN PO 05/25/17 20:45 06/08/17 20:44 05/30/17 11:10 10 MG Morphine Sulfate (MoRPHine SULFATE INJ) 4 mg Q4 PRN IV 05/25/17 20:45 06/08/17 20:44 Senna (Senokot Tab) 17.2 mg HS PO 05/25/17 21:00 06/24/17 20:59 05/29/17 21:01 17.2 MG Docusate Sodium (coLACE CAP) 100 mg BID PO 05/25/17 21:00 06/24/17 20:59 05/30/17 08:31 100 MG Diphenhydramine HCl (Benadryl Cap) 25 mg Q8H PRN PO 05/25/17 20:45 06/24/17 20:44 Multivitamins (Multivitamin Tab) 1 tab QAM PO 05/26/17 09:00 06/25/17 08:59 05/30/17 08:28 1 TAB Ondansetron HCl (Zofran Inj) 4 mg Q6H PRN IV 05/25/17 20:45 06/24/17 20:44 05/26/17 05:07 4 MG Aspirin (Ecotrin Tab) 325 mg BID PO 05/25/17 21:00 06/24/17 20:59 05/30/17 08:30 325 MG Heparin Sodium (Porcine) (Heparin 10 Unit/ ml 5 ml Flush) 5 ml PRN PRN FLUSH 05/26/17 02:15 06/25/17 02:14 05/30/17 12:07 5 ML Vancomycin HCl 1500 mg/Sodium Chloride 530 ml @ 200 mls/hr Q12H IV 05/27/17 15:00 07/06/17 14:59 05/30/17 02:46 200 MLS/HR Oxycodone HCl (Oxycontin Tab) 10 mg Q12 PO 05/28/17 10:30 06/11/17 10:29 05/30/17 08:25 10 MG Objective Vital Signs Date Time Temp Pulse Resp B/P (MAP) Pulse Ox O2 Delivery O2 Flow Rate FiO2 05/30/17 13:45 98 129/75 (93) 05/30/17 07:45 Room Air 05/30/17 07:24 36.5 73 15 139/94 (109) 95 Room Air 05/30/17 00:13 Room Air 05/29/17 22:50 36.7 83 16 124/74 (91) 93 Room Air 05/29/17 15:30 Room Air 05/29/17 14:58 36.7 91 18 134/87 (103) 94 Room Air Physical Exam General Appearance: WD/WN, no apparent distress Eyes: normal inspection, EOMI, sclerae normal ENT: normal ENT inspection, pharynx normal Neck: supple, no adenopathy, trachea midline Respiratory/Chest: chest non-tender, lungs clear, normal breath sounds, no respiratory distress Cardiovascular: regular rate, rhythm, no gallop, no murmur Abdomen: normal bowel sounds, non tender, soft, no organomegaly Extremities: non-tender, no calf tenderness, normal capillary refill Neurologic/Psychiatric: alert, oriented x 3 Skin: normal color, no rash, + pertinent finding (dressing intact) Lymphatic: no adenopathy Laboratory Results RUN DATE: 05/30/17 [facility] LAB PAGE 1 RUN TIME: 1316 Specimen Inquiry PATIENT: PATY RODRÍGUEZ LOC: W U # : [id number] AGE/SX: 52/M ROOM: [facility] REG : 05/25/[address]: Fly James M.D. : 1965 BED: 1 DIS : STATUS: ADM IN TLOC: SPEC #: [id number] LUKE: 05/25/17 STATUS: COMP REQ #: [id number] RECD: 05/25/[address]: Juan David Peoples D.O. SOURCE: INC.SITE ENTR: 05/25/[address] [facility] [address]: Cam Richey MD SPDESC: Casimiro CARBAJAL Salman A., DO Ignatius, Nicole D. D.O. ORDERED: AER/MODE CULTSMR Procedure Result Verified Site GRAM STAIN Final 05/26/17-0753 RESULT FEW WBCs SEEN NO ORGANISMS SEEN OR AER/MODE CULT Final 05/30/17-1316 NO GROWTH Last 24 Hours Test 05/30/17 05:19 Creatinine 0.61 mg/dl Est Creatinine Clear Calc Drug Dose 158.9 ml/min Estimated GFR () 132.1 Estimated GFR (Non- 114.0 Assessment and Plan Patient with chronically infected left ARNAUD, 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 Has undergone revision with negative cultures, suggesting prior Abx effective. Would continue on vancomycin and ceftriaxone for 6 weeks.
[2017-05-30 15:02] VITALS: BP 135/90; PULSE 88; TEMP 37.1; O2SAT 92
--- NOTE | 2017-05-30 18:30 | Progress Note ---
Medicine Progress Note Date & Time of Visit: May 30, 2017 at 18:21. Subjective Pt was seen and examined Lying in bed with no distress Pt said that he continue to have pain in his left hip Denies any chest pain, palpitation and SOB Objective Last 8 Hrs Date Time Temp Pulse Resp B/P (MAP) Pulse Ox O2 Delivery O2 Flow Rate FiO2 05/30/17 15:02 37.1 88 18 135/90 (105) 92 Room Air 05/30/17 13:45 98 129/75 (93) Physical Exam: General- No acute distress Head- atraumatic Eyes- PERRL, EOMI, ENT- oropharynx clear Neck- supple, no JVD Lungs- clear to auscultation Heart- regular rhythm Abdomen- normal bowel sounds, soft Extremities-no calf tenderness, Left hip pain, able to move LE toes Neuro- alert, oriented x 3; PERRL, EOMI Skin- warm & dry Laboratory Results: Last 24 Hours Test 05/30/17 05:19 Creatinine 0.61 mg/dl Est Creatinine Clear Calc Drug Dose 158.9 ml/min Estimated GFR () 132.1 Estimated GFR (Non- 114.0 Assessment & Plan Left hip Dislocation S/p Left hip prosthesis infection 1 week ago has a spacer placed in the Left hip joint xray showed dislocation of left hip POD #4 s/p Open reduction, Irrigation and debridement of left hip articulating antibiotic cement spacer Continue IV abx with Vanco and Rocephin ID on board case discussed with Dr. Richey recommended to continue IV abx Vanco and Rocephin to complete 6 weeks therapy PT/OT Placed Hip abduction brace to prevent repeat dislocation Fall precaution Hgb 10.0 Case management notified for transportation to rehab Anemia Mostly due to acute blood loss post op Received 2 units PRBC during this admission Hba1c 10 Stable Elevated Glucose related to steroid Hba1c 5.4 HTN BP stable Continue valsartan and hydralazine Continue monitor BP Gastritis Hx Duodenal ulcer On Carafate Continue PPI Depression/Anxiety Continue venlafaxine and clonazepam prn Stable DVT PX On ASA 325 mg BID as per ortho CODE STATUS FULL CODE DISPOSITION Waiting for insurance authorization for inpatient rehab approval Consultants: Ortho ID Current Inpatient Medications: Current Inpatient Medications Medications (Trade) Dose Ordered Sig/Fito Route Start Time Stop Time Status Last Admin Dose Admin Promethazine HCl 25 mg/Sodium Chloride 51 ml @ 204 mls/hr Q6H PRN IV 05/25/17 08:00 06/24/17 07:59 05/25/17 23:07 204 MLS/HR Vancomycin HCl (Consult) 1 ea UD PRN N/A 05/25/17 08:32 06/24/17 08:31 Hydromorphone HCl (Dilaudid Inj) 1 mg Q2HWA PRN IV 05/25/17 08:00 06/08/17 07:59 05/30/17 15:15 1 MG Ceftriaxone Sodium 2000 mg/ Dextrose 70 ml @ 100 mls/hr Q24H IV 05/25/17 09:00 07/06/17 08:59 05/30/17 08:31 100 MLS/HR Atorvastatin Calcium (Lipitor Tab) 20 mg DAILY PO 05/26/17 09:00 06/25/17 08:59 05/30/17 08:30 20 MG Clonazepam (Klonopin Tab) 0.5 mg BID PRN PO 05/25/17 16:30 06/24/17 16:29 05/30/17 08:39 0.5 MG Cyclobenzaprine HCl (Flexeril Tab) 10 mg TID PO 05/25/17 21:00 06/24/17 20:59 05/30/17 13:45 10 MG Escitalopram Oxalate (Lexapro Tab) 10 mg DAILY PO 05/26/17 09:00 06/25/17 08:59 05/30/17 08:27 10 MG Gabapentin (Neurontin Tab) 600 mg Q6 PO 05/25/17 18:00 06/24/17 17:59 05/30/17 08:28 600 MG Hydralazine HCl (Apresoline Tab) 50 mg TID PO 05/25/17 21:00 06/24/17 20:59 05/30/17 13:46 50 MG Sucralfate (Carafate Tab) 1 gm DAILY PO 05/26/17 09:00 06/25/17 08:59 05/30/17 08:28 1 GM Valsartan (Diovan Tab) 320 mg DAILY PO 05/26/17 09:00 06/25/17 08:59 Future hold 05/30/17 08:29 320 MG Venlafaxine HCl (effeXOR EXTENDED REL CAP) 75 mg DAILY PO 05/26/17 09:00 06/25/17 08:59 05/30/17 08:28 75 MG Zolpidem Tartrate (Ambien Tab) 10 mg HS PO 05/25/17 21:00 06/24/17 20:59 05/29/17 23:37 10 MG Ferrous Sulfate (Feosol Tab) 325 mg TIDM PO 05/26/17 08:30 06/25/17 08:29 05/30/17 12:49 325 MG Pantoprazole Sodium (Protonix Tab) 40 mg BID PO 05/25/17 21:00 06/24/17 20:59 05/30/17 08:28 40 MG Oxycodone HCl (Roxicodone Immediate Rel Tab) 1 TABLET FOR PAIN RATING... Q4H PRN PO 05/25/17 20:45 06/08/17 20:44 05/30/17 16:30 10 MG Morphine Sulfate (MoRPHine SULFATE INJ) 4 mg Q4 PRN IV 05/25/17 20:45 06/08/17 20:44 Senna (Senokot Tab) 17.2 mg HS PO 05/25/17 21:00 06/24/17 20:59 05/29/17 21:01 17.2 MG Docusate Sodium (coLACE CAP) 100 mg BID PO 05/25/17 21:00 06/24/17 20:59 05/30/17 08:31 100 MG Diphenhydramine HCl (Benadryl Cap) 25 mg Q8H PRN PO 05/25/17 20:45 06/24/17 20:44 Multivitamins (Multivitamin Tab) 1 tab QAM PO 05/26/17 09:00 06/25/17 08:59 05/30/17 08:28 1 TAB Ondansetron HCl (Zofran Inj) 4 mg Q6H PRN IV 05/25/17 20:45 06/24/17 20:44 05/26/17 05:07 4 MG Aspirin (Ecotrin Tab) 325 mg BID PO 05/25/17 21:00 06/24/17 20:59 05/30/17 08:30 325 MG Heparin Sodium (Porcine) (Heparin 10 Unit/ ml 5 ml Flush) 5 ml PRN PRN FLUSH 05/26/17 02:15 06/25/17 02:14 05/30/17 12:07 5 ML Vancomycin HCl 1500 mg/Sodium Chloride 530 ml @ 200 mls/hr Q12H IV 05/27/17 15:00 07/06/17 14:59 05/30/17 14:34 200 MLS/HR Oxycodone HCl (Oxycontin Tab) 10 mg Q12 PO 05/28/17 10:30 06/11/17 10:29 05/30/17 08:25 10 MG
[2017-05-30] MEDS: SENNA 8.6 MG TAB PO SCH (21:08)
[2017-05-30] MEDS: ZOLPIDEM TARTRATE 10 MG TAB PO SCH (22:23)
[2017-05-31 00:10] VITALS: BP 98/62; PULSE 79; TEMP 36.5; O2SAT 92
[2017-05-31] MEDS ORDERED: VANCOMYCIN TROUGH ONE (02:30)
[2017-05-31] MEDS: HYDROmorphone INJ 1 MG/ML SYR IV PRN ×5 (02:53→16:55)
[2017-05-31] MEDS: VANCOMYCIN INJ 1,500 MG in SODIUM CHLORIDE 0.9% 500ML 500 ML IV SCH (03:10)
[2017-05-31] MEDS: OXYCODONE HCL IR 5 MG TAB (IMMEDIATE RELEASE) PO PRN ×4 (03:50→16:03)
[2017-05-31] MEDS: GABAPENTIN 600 MG TAB PO SCH ×2 (05:44→12:05)
[2017-05-31 07:00] VITALS: BP 95/62; PULSE 76; TEMP 36.7; O2SAT 93
[2017-05-31] MEDS: PANTOprazole SOD 40 MG TAB PO SCH (08:02)
[2017-05-31] MEDS: MULTIVITAMIN TAB PO SCH (08:02)
[2017-05-31] MEDS: VENLAFAXINE HCL XR 75 MG CAPXR PO SCH (08:03)
[2017-05-31] MEDS: VALSARTAN 80 MG TAB PO SCH (08:03)
[2017-05-31] MEDS: ESCITALOPRAM OXALATE 10 MG TAB PO SCH (08:05)
[2017-05-31] MEDS: FERROUS SULFATE 325 MG TAB PO SCH ×2 (08:05→12:06)
[2017-05-31] MEDS: ASPIRIN 325 MG ECTAB PO SCH (08:06)
[2017-05-31] MEDS: ATORVASTATIN 20 MG TAB PO SCH (08:06)
[2017-05-31] MEDS: DOCUSATE SODIUM 100 MG CAP PO SCH (08:06)
[2017-05-31] MEDS: CYCLOBENZAPRINE HCL 10 MG TAB PO SCH ×2 (08:07→13:52)
[2017-05-31] MEDS: SUCRALFATE 1 GM TAB PO SCH (08:08)
[2017-05-31 08:15] VITALS: BP 120/73
[2017-05-31] MEDS: CLONAZEPAM 0.5 MG TAB PO PRN (10:16)
[2017-05-31] MEDS: CEFTRIAXONE SOD INJ 2,000 MG in DEXTROSE 5% 50ML 50 ML IV SCH (10:16)
[2017-05-31] MEDS: OXYCODONE HCL 10 MG TABCR (OXYCONTIN) PO SCH (10:16)
[2017-05-31] MEDS ORDERED: VANC500I IV (10:24)
[2017-05-31] MEDS ORDERED: RCPAV1 IV (10:24)
[2017-05-31] MEDS ORDERED: RXC5 PO (10:24)
[2017-05-31] MEDS ORDERED: CLON0.5T3 PO (10:24)
--- NOTE | 2017-05-31 10:28 | Discharge Instructions ---
Discharge Instructions Date of Service May 31, 2017. Admission Reason for Admission: Left Hip Fracture Discharge Discharge Diagnosis / Problem: LEFT HIP PROSTHESIS INFECTION Discharge Goals Goal(s): Decrease discomfort, Improve function, Increase independence, Improve disease control, Therapeutic intervention Activity Recommendations Activity Level: Assistance Required Therapies: Physical Therapy, Occupational Therapy Weightbearing Status: Left non-weightbearing . Additional Information Patient informed of condition: Yes Advance Directives: No DNR: No Level of Care: Skilled Communicable Disease: No Prognosis: Stable Thompson Catheter: No Instructions / Follow-Up Instructions / Follow-Up ORTHOPEDICS FOLLOW UP IN 2 WEEKS , PLEASE CALL [facility] at [phone] TO SCHEDULE APPOINTMENT -Maintain Prevena wound vac till evaluated by Orthopedics -Maintain left hip abduction brace at all times, may remove for hygiene Take ASPIRIN 325 mg twice daily with meal for 1 months . This is your blood thinner to prevent blood clot in your legs as you recover form hip surgery after that you can resume Aspirin 81 mg daily ( prior dose ) Continue vancomycin 1500 mg IV q12h FOR 6 WEEKS Rocephin 2 gm daily for 6 WEEKS LAB: VANCOMYCIN TROUGH LEVEL /BUN /CREATININE LEVEL EVERY WEEK Vancomycin Goal trough 15-20 mcg/mL NEEDS WEEKLY TROUGH LEVEL CHECK AND RENAL FUNCTION CHECK WHILE ON IV VANCOMYCIN PLEASE FAX ALL THE LAB REPORT TO INFECTIOUS DISEASE DR RICHEY'S OFFICE Cam Richey MD [facility] [id number] PHONE DISCONTINUE PICC LINE AFTER IV ANTIBIOTIC IS COMPLETED Current Hospital Diet Patient's current hospital diet: Regular Diet Discharge Diet Recommended Diet: Regular Diet Procedures Procedures Performed: Open Reduction, Irrigation and Debridement Left Hip Articulating Antibiotic Spacer Pending Studies Studies pending at discharge: yes List of pending studies: LAB: VANCOMYCIN TROUGH LEVEL /BUN /CREATININE LEVEL EVARY WEEK Vancomycin Goal trough 15-20 mcg/mL Continue vancomycin 1500 mg IV q12h FOR 6 WEEKS NEEDS WEEKLY TROUGH LEVEL CHECK AND RENAL FUNCTION CHECK WHILE ON IV VANCOMYCIN PLEASE FAX ALL THE LAB REPORT TO DR RICHEY'S OFFICE Laboratory Results Hemoglobin A1c Test 05/27/17 05:56 Range/Units Estimated Average Glucose 108 mg/dl Hemoglobin A1c 5.4 4.5-5.6 % Medical Emergencies . Who to Call and When: Medical Emergencies: If at any time you feel your situation is an emergency, please call 911 immediately. . Non-Emergent Contact Non-Emergency issues call your: Primary Care Provider . . "Provider Documentation" section prepared by Denisha Lynn. . Manager Creative Recommendations Manager Creative Recommendations: [facility] DISCHARGE INSTRUCTIONS: Left hip infection s/p articulating antibiotic cement spacer SELF CARE INSTRUCTIONS: A. You are to ambulate with a walker or crutches for approximately 6 weeks. B. You are NON- WEIGHT BEARING on your operative lower extremity for at least 6 weeks. C. Wear low heeled shoes with non-slip soles D. Be sure that your floors are free of things that could trip you throw rugs, electrical cords, and small objects. Avoid wet and waxed floors, especially with crutches/walker/cane. E. Try to walk several times a day with rest periods between. F. You may shower 48 hours after surgery and get the incision area wet, but DO NOT soak or submerge incision area in water. (No baths, swimming pools, hot tubs ) G. You may have a large, band-aid like dressing over your incision Prevena incisional vac. This will remain on your incision for 7 days, and then can be removed. You CAN shower with this on. If incision is leaking through the dressing, please call the office . H. Do NOT apply soap or any ointment/lotions directly over incision. I. You may use ice as needed to operative site. SPECIAL CARE INSTRUCTIONS: VERY IMPORTANT TO READ AND REVIEW A. You may be at risk for phlebitis or blood clots. a. Wear surgical stockings (VÍCTOR hose) for 2 weeks after surgery to improve circulation and reduce swelling. b. Take ASPIRIN 325 mg twice daily. This is your blood thinner. c. If you are on Coumadin- you will have daily/weekly blood work to monitor your levels. This will be done by either your family physician/ inward toll operator (if you are on Coumadin chronically) versus your orthopedic surgeon. Expect a phone call the day of or the day after your blood work is drawn to adjust your dose accordingly. B. There are a few signs you need to watch for after you are home. Call [facility] at [phone] if you experience any of the following: a. If you have a temperature of 101 degrees or higher. b. Sudden increase in pain in your hip not relieved by rest or pain medication. c. Any fluid or drainage from the incision; redness of the incision. d. Shortness of breath or chest pain. B. Please call [facility] at [phone] if you have any questions or concerns about your operation or recovery. C. Call your physician if: a. Temperature is greater than 101 degrees (F). b. Pain is not relieved by prescribed pain medications. c. Increase drainage or redness from incision. d. Unanswered questions or concerns. D. Pain Medication: a. You will be prescribed pain medication upon discharge that should last till your first post-operative appointment. b. If you experience nausea and/or skin rash, discontinue this medication and contact our office for an alternative medication. c. Caution- narcotic pain medication can cause constipation. E. Antibiotics a. You are to continue IV Vancomycin and IV Ceftriaxone for 6 weeks per infectious disease recommendations. FOLLOW UP VISIT: Please call [facility] at [phone] to schedule a follow up appointment 10-14 days from the date of your surgery date with Dr. Hoffmann. Core Measure Problem Core Measures: None
--- NOTE | 2017-05-31 11:03 | Orthopedic Progress Note ---
Orthopedic Progress Note Date of Service May 31, 2017. Subjective Additional Notes: Patient seen resting in bed, no acute issues overnight, +pain, improved with medication. Objective LLE NVSI +EHL/FHL/TA/GS SILT grossly, CR< 2 seconds, +2 DP pulse, compartments soft NT, incisional vac in place, abduction brace in place Date Time Temp Pulse Resp B/P (MAP) Pulse Ox O2 Delivery O2 Flow Rate FiO2 05/31/17 08:15 120/73 (89) 05/31/17 07:00 36.7 76 18 95/62 (73) 93 Room Air 05/31/17 00:10 36.5 79 16 98/62 (74) 92 Room Air 05/30/17 23:50 Room Air 05/30/17 15:20 Room Air 05/30/17 15:02 37.1 88 18 135/90 (105) 92 Room Air 05/30/17 13:45 98 129/75 (93) Assessment & Plan Assessment: POD #6 s/p Open reduction, Irrigation and debridement of left hip articulating antibiotic cement spacer Plan: -IV abx per ID -Maintain prevena wound vac -Pain control -DVT PPX - ASA BID -NWB LLE -Maintain aduction brace at all times, may remove for hygiene -PT/OT -Orthopedically stable -DC to [facility] today. -Consultation recs in chart Discharge Planning Discharge Planning: uncertain DVT Prophylaxis: TEDs, SCDs, ASA
--- NOTE | 2017-05-31 11:11 | Consultant Recommendations ---
Flap Presser Recommendations Date of Service May 31, 2017. Flap Presser Recommendations [facility] DISCHARGE INSTRUCTIONS: Left hip infection s/p articulating antibiotic cement spacer SELF CARE INSTRUCTIONS: A. You are to ambulate with a walker or crutches for approximately 6 weeks. B. You are NON- WEIGHT BEARING on your operative lower extremity for at least 6 weeks. C. Wear low heeled shoes with non-slip soles D. Be sure that your floors are free of things that could trip you throw rugs, electrical cords, and small objects. Avoid wet and waxed floors, especially with crutches/walker/cane. E. Try to walk several times a day with rest periods between. F. You may shower 48 hours after surgery and get the incision area wet, but DO NOT soak or submerge incision area in water. (No baths, swimming pools, hot tubs ) G. You may have a large, band-aid like dressing over your incision Prevena incisional vac. This will remain on your incision for 7 days, and then can be removed. You CAN shower with this on. If incision is leaking through the dressing, please call the office . H. Do NOT apply soap or any ointment/lotions directly over incision. I. You may use ice as needed to operative site. SPECIAL CARE INSTRUCTIONS: VERY IMPORTANT TO READ AND REVIEW A. You may be at risk for phlebitis or blood clots. a. Wear surgical stockings (VÍCTOR hose) for 2 weeks after surgery to improve circulation and reduce swelling. b. Take ASPIRIN 325 mg twice daily. This is your blood thinner. c. If you are on Coumadin- you will have daily/weekly blood work to monitor your levels. This will be done by either your family physician/ furnace converter (if you are on Coumadin chronically) versus your orthopedic surgeon. Expect a phone call the day of or the day after your blood work is drawn to adjust your dose accordingly. B. There are a few signs you need to watch for after you are home. Call [facility] at [phone] if you experience any of the following: a. If you have a temperature of 101 degrees or higher. b. Sudden increase in pain in your hip not relieved by rest or pain medication. c. Any fluid or drainage from the incision; redness of the incision. d. Shortness of breath or chest pain. B. Please call [facility] at [phone] if you have any questions or concerns about your operation or recovery. C. Call your physician if: a. Temperature is greater than 101 degrees (F). b. Pain is not relieved by prescribed pain medications. c. Increase drainage or redness from incision. d. Unanswered questions or concerns. D. Pain Medication: a. You will be prescribed pain medication upon discharge that should last till your first post-operative appointment. b. If you experience nausea and/or skin rash, discontinue this medication and contact our office for an alternative medication. c. Caution- narcotic pain medication can cause constipation. E. Antibiotics a. You are to continue IV Vancomycin and IV Ceftriaxone for 6 weeks per infectious disease recommendations. FOLLOW UP VISIT: Please call [facility] at [phone] to schedule a follow up appointment 10-14 days from the date of your surgery date with Dr. Hoffmann.
[2017-05-31] MEDS ORDERED: ASPEC325 PO (13:06)
[2017-05-31] MEDS ORDERED: VANCOMYCIN INJ 1,750 MG in SODIUM CHLORIDE 0.9% 500ML 500 ML IV SCH (14:00)
[2017-05-31] MEDS ORDERED: OXYC-57 PO (14:02)
--- NOTE | 2017-05-31 14:03 | Discharge Summary ---
Discharge Summary Date of Service May 31, 2017. Discharge Summary Admission Date: May 25, 2017 at 07:43 Discharge Date: Jun 01, 2017 Discharge Disposition: Rehab Principal Diagnosis: LEFT HIP PROSTHESIS INFECTION Procedures: Procedures Performed: Open Reduction, Irrigation and Debridement Left Hip Articulating Antibiotic Spacer Consultations: Ortho ID Medication Reconciliation New Medications: Aspirin (Aspirin) 325 Mg Ectab 1 TAB PO BIDM for 30 Days, #60 TABS Nystatin (Topical) (Nystatin) 100,000 Unit/Gm Oin 1 APPLN TOP TID for 5 Days, #15 GM 1 Refill Oxycodone/Acetaminophen 5MG/325MG (Percocet 5MG/325MG) Tab 1-2 TABLETS PO Q4H PRN for Pain, #10 TAB Changed Medications: Vancomycin Hcl In Dextrose (Vancomycin Hcl In Dextros) 1 Inj Inj 1500 MG IV Q12 for 42 Days (Changed from: 1.75 GM) Continued Medications: Acetaminophen (Tylenol) 500 Mg Tab 1000 MG PO Q8 PRN for Pain, TAB Atorvastatin (Lipitor) 20 Mg Tab 1 TAB PO DAILY for 90 Days, #90 TAB 1 Refill Bisacodyl (Dulcolax) 10 Mg Sup 1 SUPP DC UD PRN for Constipation, SUPP every 4th day Ceftriaxone Sod (Rocephin) 1 Gm Inj 2 GM IV DAILY for 42 Days, #42 VIAL (This prescription has been renewed) Celecoxib (Celebrex) 100 Mg Cap 200 MG PO BID, CAP Clonazepam (Klonopin) 0.5 Mg Tab 0.5 MG PO BID PRN for Anxiety, #10 TAB (This prescription has been renewed) Cyclobenzaprine HCl (Cyclobenzaprine HCl) 10 Mg Tab 1 TAB PO TID Escitalopram (Lexapro) 10 Mg Tab 10 MG PO DAILY, TAB Ferrous Sulfate (Ferrous Sulfate) 324 Mg Tab 1 TAB PO TID Gabapentin (Neurontin) 600 Mg Tab 600 MG PO Q6, TAB Hydralazine Hcl (Apresoline) 50 Mg Tab 1 TAB PO TID for 30 Days, #90 TAB 3 Refills Metoclopramide (Reglan) 10 Mg Tab 10 MG PO BID, TAB Omeprazole (Prilosec) 20 Mg Capcr 20 MG PO BID, CAP Potassium Ext Rel (Klor-Con) 20 Meq Tabcr 20 MEQ PO DAILY, TAB Sucralfate (Sucralfate) 1 Gm Tab 1 GM PO, TAB Valsartan (Diovan) 320 Mg Tab 1 TAB PO DAILY for 30 Days, #30 TAB 5 Refills Venlafaxine Hcl (Venlafaxine Extended Rel) 75 Mg Cap 1 CAP PO DAILY for 90 Days, #90 CAP 3 Refills Zolpidem Tartrate (Ambien) 10 Mg Tab 10 MG PO HS, TAB Discontinued Medications: Aspirin (Aspir-81) 81 Mg Tab 81 MG PO BID, TAB Oxycodone Hcl (Oxycodone Hcl) 10 Mg Tab 1 TAB PO BID PRN for Pain, TAB Admission Information HPI (per Admitting provider): 52 yo Male with PMH of Left hip prosthesis infection, Gastritis, Duodenal ulcer , HTN, Dyslipidemia, Depression was transferred from [facility] for left hip dislocation. Pt said that he had surgery done in [facility] on 05/17 for Left hip prosthesis infection. He had and antibiotic spacer placed in the left hip joint area. He said that after the surgery while working with PT, he had a fall and xray was done at that time was unremarkable. Pt said that he was transferred to Nursing to complete IV abx with Vanco and Rocephin for a course of 6 weeks. Pt said that yesterday morning he rolled over in bed and felt a pop , then he developed 10/10 pain in his left hip area. He said that the pain is constant, non radiating, worsening when moving his left LE. He said that stays still help with the pain minimally. He had xray done in the nursing and at [facility] that showed dislocation of the L hip. Pt orthopedic is out of town, and was transferred to [facility] for Dr. Peoples to evaluate him. Denies any chest pain, palpitation, dizziness, fever, chills and SOB. Physical Exam (per Admitting): General Appearance: WD/WN, + mild distress (due to left hip pain) Head: normocephalic, atraumatic Eyes: PERRL, EOMI ENT: hearing grossly normal Neck: no JVD, trachea midline Respiratory/Chest: no respiratory distress, no accessory muscle use Cardiovascular: regular rate, rhythm, no JVD, no murmur Abdomen/GI: normal bowel sounds, non tender Back: no CVA tenderness Extremities/Musculoskelatal: no calf tenderness, no pedal edema Neurologic/Psych: no motor/sensory deficits, alert, oriented x 3 Skin: warm/dry, no rash Hospital Course Left hip Dislocation S/p Left hip prosthesis infection 1 week ago has a spacer placed in the Left hip joint xray showed dislocation of left hip POD #4 s/p Open reduction, Irrigation and debridement of left hip articulating antibiotic cement spacer Continue IV abx with Vanco and Rocephin ID on board case discussed with Dr. Richey recommended to continue IV abx Vanco and Rocephin to complete 6 weeks therapy PT/OT Placed Hip abduction brace to prevent repeat dislocation Fall precaution Hgb 10.0 Case management notified for transportation to rehab Anemia Mostly due to acute blood loss post op Received 2 units PRBC during this admission Hba1c 10 Stable Elevated Glucose related to steroid Hba1c 5.4 HTN BP stable Continue valsartan and hydralazine Continue monitor BP Gastritis Hx Duodenal ulcer On Carafate Continue PPI Depression/Anxiety Continue venlafaxine and clonazepam prn Stable DVT PX On ASA 325 mg BID as per ortho CODE STATUS FULL CODE DISPOSITION approved for rehab [facility] Exam: General- No acute distress Head- atraumatic Eyes- PERRL, EOMI, ENT- oropharynx clear Neck- supple, no JVD Lungs- clear to auscultation Heart- regular rhythm Abdomen- normal bowel sounds, soft Extremities-no calf tenderness, Left hip pain, able to move LE toes Neuro- alert, oriented x 3; PERRL, EOMI Skin- warm & dry Total time spent on discharge = 40 mins This includes examination of the patient, discharge planning, medication reconciliation, and communication with other providers. Discharge Instructions Discharge Instructions Date of Service May 31, 2017. Admission Reason for Admission: Left Hip Fracture Discharge Discharge Diagnosis / Problem: LEFT HIP PROSTHESIS INFECTION Discharge Goals Goal(s): Decrease discomfort, Improve function, Increase independence, Improve disease control, Therapeutic intervention Activity Recommendations Activity Level: Assistance Required Therapies: Physical Therapy, Occupational Therapy Weightbearing Status: Left non-weightbearing . Additional Information Patient informed of condition: Yes Advance Directives: No DNR: No Level of Care: Skilled Communicable Disease: No Prognosis: Stable Thompson Catheter: No Instructions / Follow-Up Instructions / Follow-Up ORTHOPEDICS FOLLOW UP IN 2 WEEKS , PLEASE CALL [facility] at [phone] TO SCHEDULE APPOINTMENT -Maintain Prevena wound vac till evaluated by Orthopedics -Maintain left hip abduction brace at all times, may remove for hygiene Take ASPIRIN 325 mg twice daily with meal for 1 months . This is your blood thinner to prevent blood clot in your legs as you recover form hip surgery after that you can resume Aspirin 81 mg daily ( prior dose ) Continue vancomycin 1500 mg IV q12h FOR 6 WEEKS Rocephin 2 gm daily for 6 WEEKS LAB: VANCOMYCIN TROUGH LEVEL /BUN /CREATININE LEVEL EVERY WEEK Vancomycin Goal trough 15-20 mcg/mL NEEDS WEEKLY TROUGH LEVEL CHECK AND RENAL FUNCTION CHECK WHILE ON IV VANCOMYCIN PLEASE FAX ALL THE LAB REPORT TO INFECTIOUS DISEASE DR RICHEY'S OFFICE Cam Richey MD [id number] [facility], [facility] [address] PHONE DISCONTINUE PICC LINE AFTER IV ANTIBIOTIC IS COMPLETED Current Hospital Diet Patient's current hospital diet: Regular Diet Discharge Diet Recommended Diet: Regular Diet Procedures Procedures Performed: Open Reduction, Irrigation and Debridement Left Hip Articulating Antibiotic Spacer Pending Studies Studies pending at discharge: yes List of pending studies: LAB: VANCOMYCIN TROUGH LEVEL /BUN /CREATININE LEVEL EVARY WEEK Vancomycin Goal trough 15-20 mcg/mL Continue vancomycin 1500 mg IV q12h FOR 6 WEEKS NEEDS WEEKLY TROUGH LEVEL CHECK AND RENAL FUNCTION CHECK WHILE ON IV VANCOMYCIN PLEASE FAX ALL THE LAB REPORT TO DR RICHEY'S OFFICE Laboratory Results Hemoglobin A1c Test 05/27/17 05:56 Range/Units Estimated Average Glucose 108 mg/dl Hemoglobin A1c 5.4 4.5-5.6 % Medical Emergencies . Who to Call and When: Medical Emergencies: If at any time you feel your situation is an emergency, please call 911 immediately. . Non-Emergent Contact Non-Emergency issues call your: Primary Care Provider . . "Provider Documentation" section prepared by Denisha Lynn. . Data Administrator Recommendations Data Administrator Recommendations: [facility] DISCHARGE INSTRUCTIONS: Left hip infection s/p articulating antibiotic cement spacer SELF CARE INSTRUCTIONS: A. You are to ambulate with a walker or crutches for approximately 6 weeks. B. You are NON- WEIGHT BEARING on your operative lower extremity for at least 6 weeks. C. Wear low heeled shoes with non-slip soles D. Be sure that your floors are free of things that could trip you throw rugs, electrical cords, and small objects. Avoid wet and waxed floors, especially with crutches/walker/cane. E. Try to walk several times a day with rest periods between. F. You may shower 48 hours after surgery and get the incision area wet, but DO NOT soak or submerge incision area in water. (No baths, swimming pools, hot tubs ) G. You may have a large, band-aid like dressing over your incision Prevena incisional vac. This will remain on your incision for 7 days, and then can be removed. You CAN shower with this on. If incision is leaking through the dressing, please call the office . H. Do NOT apply soap or any ointment/lotions directly over incision. I. You may use ice as needed to operative site. SPECIAL CARE INSTRUCTIONS: VERY IMPORTANT TO READ AND REVIEW A. You may be at risk for phlebitis or blood clots. a. Wear surgical stockings (VÍCTOR hose) for 2 weeks after surgery to improve circulation and reduce swelling. b. Take ASPIRIN 325 mg twice daily. This is your blood thinner. c. If you are on Coumadin- you will have daily/weekly blood work to monitor your levels. This will be done by either your family physician/ owner operator (if you are on Coumadin chronically) versus your orthopedic surgeon. Expect a phone call the day of or the day after your blood work is drawn to adjust your dose accordingly. B. There are a few signs you need to watch for after you are home. Call [facility] at [phone] if you experience any of the following: a. If you have a temperature of 101 degrees or higher. b. Sudden increase in pain in your hip not relieved by rest or pain medication. c. Any fluid or drainage from the incision; redness of the incision. d. Shortness of breath or chest pain. B. Please call [facility] at [phone] if you have any questions or concerns about your operation or recovery. C. Call your physician if: a. Temperature is greater than 101 degrees (F). b. Pain is not relieved by prescribed pain medications. c. Increase drainage or redness from incision. d. Unanswered questions or concerns. D. Pain Medication: a. You will be prescribed pain medication upon discharge that should last till your first post-operative appointment. b. If you experience nausea and/or skin rash, discontinue this medication and contact our office for an alternative medication. c. Caution- narcotic pain medication can cause constipation. E. Antibiotics a. You are to continue IV Vancomycin and IV Ceftriaxone for 6 weeks per infectious disease recommendations. FOLLOW UP VISIT: Please call [facility] at [phone] to schedule a follow up appointment 10-14 days from the date of your surgery date with Dr. Hoffmann. Core Measure Problem Core Measures: None
[2017-05-31 14:36] VITALS: BP 120/73; PULSE 76; TEMP 36.7; O2SAT 93
--- NOTE | 2017-05-31 14:59 | Infectious Disease Progress Nt ---
Progress Note Date of Service May 31, 2017. Subjective Pt evaluation today including: conversation w/ patient, physical exam, chart review, lab review, review of studies, conversation w/ sharepoint consultant, review of inpatient medication list Patient offering no new complaints today. Remains afebrile. Pain controlled. Tolerating antibiotics without apparent difficulty. All Other Systems: Reviewed and Negative Medications Current Inpatient Medications Medications (Trade) Dose Ordered Sig/Fito Route Start Time Stop Time Status Last Admin Dose Admin Promethazine HCl 25 mg/Sodium Chloride 51 ml @ 204 mls/hr Q6H PRN IV 05/25/17 08:00 06/24/17 07:59 05/25/17 23:07 204 MLS/HR Vancomycin HCl (Consult) 1 ea UD PRN N/A 05/25/17 08:32 06/24/17 08:31 Hydromorphone HCl (Dilaudid Inj) 1 mg Q2HWA PRN IV 05/25/17 08:00 06/08/17 07:59 05/31/17 14:02 1 MG Ceftriaxone Sodium 2000 mg/ Dextrose 70 ml @ 100 mls/hr Q24H IV 05/25/17 09:00 07/06/17 08:59 05/31/17 10:16 100 MLS/HR Atorvastatin Calcium (Lipitor Tab) 20 mg DAILY PO 05/26/17 09:00 06/25/17 08:59 05/31/17 08:06 20 MG Clonazepam (Klonopin Tab) 0.5 mg BID PRN PO 05/25/17 16:30 06/24/17 16:29 05/31/17 10:16 0.5 MG Cyclobenzaprine HCl (Flexeril Tab) 10 mg TID PO 05/25/17 21:00 06/24/17 20:59 05/31/17 13:52 10 MG Escitalopram Oxalate (Lexapro Tab) 10 mg DAILY PO 05/26/17 09:00 06/25/17 08:59 05/31/17 08:05 10 MG Gabapentin (Neurontin Tab) 600 mg Q6 PO 05/25/17 18:00 06/24/17 17:59 05/31/17 12:05 600 MG Hydralazine HCl (Apresoline Tab) 50 mg TID PO 05/25/17 21:00 06/24/17 20:59 05/31/17 13:53 50 MG Sucralfate (Carafate Tab) 1 gm DAILY PO 05/26/17 09:00 06/25/17 08:59 05/31/17 08:08 1 GM Valsartan (Diovan Tab) 320 mg DAILY PO 05/26/17 09:00 06/25/17 08:59 Future hold 05/31/17 08:03 320 MG Venlafaxine HCl (effeXOR EXTENDED REL CAP) 75 mg DAILY PO 05/26/17 09:00 06/25/17 08:59 05/31/17 08:03 75 MG Zolpidem Tartrate (Ambien Tab) 10 mg HS PO 05/25/17 21:00 06/24/17 20:59 05/30/17 22:23 10 MG Ferrous Sulfate (Feosol Tab) 325 mg TIDM PO 05/26/17 08:30 06/25/17 08:29 05/31/17 12:06 325 MG Pantoprazole Sodium (Protonix Tab) 40 mg BID PO 05/25/17 21:00 06/24/17 20:59 05/31/17 08:02 40 MG Oxycodone HCl (Roxicodone Immediate Rel Tab) 1 TABLET FOR PAIN RATING... Q4H PRN PO 05/25/17 20:45 06/08/17 20:44 05/31/17 12:05 10 MG Morphine Sulfate (MoRPHine SULFATE INJ) 4 mg Q4 PRN IV 05/25/17 20:45 06/08/17 20:44 Senna (Senokot Tab) 17.2 mg HS PO 05/25/17 21:00 06/24/17 20:59 05/30/17 21:08 17.2 MG Docusate Sodium (coLACE CAP) 100 mg BID PO 05/25/17 21:00 06/24/17 20:59 05/30/17 21:09 100 MG Diphenhydramine HCl (Benadryl Cap) 25 mg Q8H PRN PO 05/25/17 20:45 06/24/17 20:44 Multivitamins (Multivitamin Tab) 1 tab QAM PO 05/26/17 09:00 06/25/17 08:59 05/31/17 08:02 1 TAB Ondansetron HCl (Zofran Inj) 4 mg Q6H PRN IV 05/25/17 20:45 06/24/17 20:44 05/26/17 05:07 4 MG Aspirin (Ecotrin Tab) 325 mg BID PO 05/25/17 21:00 06/24/17 20:59 05/31/17 08:06 325 MG Heparin Sodium (Porcine) (Heparin 10 Unit/ ml 5 ml Flush) 5 ml PRN PRN FLUSH 05/26/17 02:15 06/25/17 02:14 05/31/17 12:06 5 ML Oxycodone HCl (Oxycontin Tab) 10 mg Q12 PO 05/28/17 10:30 06/11/17 10:29 05/31/17 10:16 10 MG Vancomycin HCl 1750 mg/Sodium Chloride 535 ml @ 200 mls/hr Q12H IV 05/31/17 14:00 07/06/17 13:59 05/31/17 13:52 200 MLS/HR Objective Vital Signs Date Time Temp Pulse Resp B/P (MAP) Pulse Ox O2 Delivery O2 Flow Rate FiO2 05/31/17 14:36 36.7 76 18 93 Room Air 05/31/17 08:15 120/73 (89) 05/31/17 07:45 Room Air 05/31/17 07:00 36.7 76 18 95/62 (73) 93 Room Air 05/31/17 00:10 36.5 79 16 98/62 (74) 92 Room Air 05/30/17 23:50 Room Air 05/30/17 15:20 Room Air 05/30/17 15:02 37.1 88 18 135/90 (105) 92 Room Air Physical Exam General Appearance: WD/WN, no apparent distress Eyes: normal inspection, sclerae normal ENT: normal ENT inspection, pharynx normal Neck: supple, no adenopathy, trachea midline Respiratory/Chest: chest non-tender, lungs clear, normal breath sounds, no respiratory distress Cardiovascular: regular rate, rhythm, no gallop, no murmur Abdomen: normal bowel sounds, non tender, soft, no organomegaly Extremities: non-tender, no calf tenderness Neurologic/Psychiatric: alert, oriented x 3 Skin: normal color, no rash Lymphatic: no adenopathy Laboratory Results Last 24 Hours Test 05/31/17 02:29 Vancomycin Level Trough 14.3 mcg/ml Assessment and Plan Patient with chronically infected left ARNAUD, 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 Has undergone revision with negative cultures, suggesting prior Abx effective. Would continue on vancomycin and ceftriaxone for 6 weeks.
[2017-05-31 15:00] VITALS: BP 121/74; PULSE 99; TEMP 36.8; O2SAT 90
[2017-05-31] MEDS ORDERED: NYST80OI TOP (15:52)
--- NOTE | 2017-06-09 06:17 | EDITING REQUIRED CODING QUERY ---
CODING QUERY To promote full compliance with coding requirements relating to patient care, provider participation is requested in all cases of medical biller/coder uncertainty. Please assist us with the question(s) below: Coding Question(s): Patient with dislocated hip antiobiotic spacer . Intraoperative repositioning of trochanteric femur fractures. Please document the etiology of the femur fractures if known or suspected. Thanks for your help! Latrell Brooks PHONE ENGINEER [facility] Physician's Response(s): The patient's medial calcar and greater trochanteric femur fractures were from previous surgery and present prior to admission and did not require any fixation or manipulation for repositioning the antibiotic spacer. Principal Diagnosis: "_that condition established after study, to be chiefly responsible for occasioning the admission of the patient to the hospital for care." Co-Existing Principal Diagnosis: "_when two or more diagnoses equally meet the criteria for principal diagnosis as determined by the circumstances of admission, diagnostic work up, and/or therapy provided, and the Alphabetic Index, Tabular List, or another coding guideline does not provide sequencing direction, any one of the diagnoses may be sequenced first." "When the physician has documented what appears to be a current diagnosis in the body of the record, but has not included the diagnosis in the final diagnostic statement, the physician should be asked whether the diagnosis should be added." (Source [facility] 2 QTR90. p3-4)
== END 2017-05-31 17:15 | DRG 480 ==
LOC: UNDOADMIN 07:43 → C.MSW 07:43
PROVIDERS: ADMIT Family Medicine; ATTEND Hospitalist
PROC: 0SPB08Z Removal of Spacer from Left Hip Joint, Open Approach (ICD-10-PCS; principal; 2017-05-26)
PROC: 0QS70ZZ Reposition Left Upper Femur, Open Approach (ICD-10-PCS; principal; 2017-05-26)
PROC: 0SHB08Z Insertion of Spacer into Left Hip Joint, Open Approach (ICD-10-PCS; principal; 2017-05-26)
DX: T84.328A Displacement of other bone devices, implants and grafts, initial encounter (principal); T84.52XA Infection and inflammatory reaction due to internal left hip prosthesis, initial encounter; S72.122A Displaced fracture of lesser trochanter of left femur, initial encounter for closed fracture; S72.112A Displaced fracture of greater trochanter of left femur, initial encounter for closed fracture; D62 Acute posthemorrhagic anemia; T84.011A Broken internal left hip prosthesis, initial encounter; Z86.19 Personal history of other infectious and parasitic diseases; K29.70 Gastritis, unspecified, without bleeding; I10 Essential (primary) hypertension; E78.5 Hyperlipidemia, unspecified; F41.8 Other specified anxiety disorders; F32.9 Major depressive disorder, single episode, unspecified; Y79.2 Prosthetic and other implants, materials and accessory orthopedic devices associated with adverse incidents; Y92.009 Unspecified place in unspecified non-institutional (private) residence as the place of occurrence of the external cause; Z87.891 Personal history of nicotine dependence; Z79.82 Long term (current) use of aspirin; W19.XXXA Unspecified fall, initial encounter

== ENCOUNTER 2017-08-12 16:13 | Emergency (ER) | payer OTHER ==
[~2017-08-12] VITALS: Ht 177.8 cm; Wt 92.6 kg
[~2017-08-12 16:13] MED LIST: ASPEC325 PO; ATOR-54 PO; BISA10SU3 PR; CELE100C PO; CLON0.5T3 PO; ESCI10TA17 PO; FERR324T4 PO; FLX10 PO; GABA600T PO; HYDR-4717 PO; METO-157 PO; NYST80OI TOP; OXYC-57 PO; POTA20TA16 PO; PRLSR20 PO; RCPAV1 IV; SUCR1TAB PO; TYLOTC500 PO; VALS320T PO; VANC500I IV; VENL75CA73 PO; ZOLP10TA PO
[2017-08-12] MEDS ORDERED: ONDANSETRON INJ 2 MG/ML 2 ML VIAL IV STA (16:19)
--- NOTE | 2017-08-12 16:24 | EMERGENCY ROOM VISIT NOTE ---
History Report prepared by Eduard: Amanda Castaneda Under the Supervision of: Dr. Horace Brice D.O. First contact with patient: 16:14 Stated Complaint: lt. HIP DISLOCATION from [place] [facility] History of Present Illness The patient is a 52 year old male who presents to the Emergency Room with complaints of a persistent hip dislocation that occurred recently, secondary to having a left hip replacement on 08/05/17. He notes that his discomfort worsens with movements. The patient states that he originally had a hip replacement performed 7 years ago, noting his most recent one was a revision for persistent infections that began occurring about 5 weeks ago. about 2 months ago. He denies any knee pain, but states that his pain radiates from his hip to above his knee. The patient reports that he quit smoking a year and a half ago. Source of History: patient Onset: 08/05/17 Position: other (left hip) Quality: other (hip dislocation) Timing: other (persistent) Modifying Factors (Worsening): movement Note: The patient denies any knee pain. Review of Systems See HPI for pertinent positives & negatives. A total of 10 systems reviewed and were otherwise negative. Past Medical & Surgical Medical Problems: (1) Dislocation of left hip (2) Infected prosthesis of left hip Family History Patient reports no known family medical history. No pertinent family history. Social History Smoking Status: Former Smoker Drug Use: none Housing Status: alf Occupation Status: disabled Current/Historical Medications Scheduled Aspirin (Aspirin), 1 TAB PO BIDM Atorvastatin (Lipitor), 1 TAB PO DAILY Celecoxib (Celebrex), 200 MG PO BID Cyclobenzaprine HCl (Cyclobenzaprine HCl), 1 TAB PO TID Escitalopram (Lexapro), 10 MG PO DAILY Ferrous Sulfate (Ferrous Sulfate), 1 TAB PO TID Gabapentin (Neurontin), 600 MG PO Q6 Hydralazine Hcl (Apresoline), 1 TAB PO TID Metoclopramide (Reglan), 10 MG PO BID Nystatin (Topical) (Nystatin), 1 APPLN TOP TID Omeprazole (Prilosec), 20 MG PO BID Potassium Ext Rel (Klor-Con), 20 MEQ PO DAILY Valsartan (Diovan), 1 TAB PO DAILY Venlafaxine Hcl (Venlafaxine Extended Rel), 1 CAP PO DAILY Zolpidem Tartrate (Ambien), 10 MG PO HS Scheduled PRN Acetaminophen (Tylenol), 1,000 MG PO Q8 PRN for Pain Bisacodyl (Dulcolax), 1 SUPP [place] UD PRN for Constipation Clonazepam (Klonopin), 0.5 MG PO BID PRN for Anxiety Oxycodone/Acetaminophen 5MG/325MG (Percocet 5MG/325MG), 1-2 TABLETS PO Q4H PRN for Pain Miscellaneous Medications Sucralfate (Sucralfate), 1 GM PO Allergies Coded Allergies: No Known Allergies (Unverified , 08/12/17) Physical Exam Vital Signs Date Time Temp Pulse Resp B/P (MAP) Pulse Ox O2 Delivery O2 Flow Rate FiO2 08/12/17 19:19 37.0 75 18 142/93 95 08/12/17 18:17 75 142/93 95 08/12/17 18:15 75 18 142/93 96 Room Air 08/12/17 18:12 75 93 08/12/17 18:10 80 18 137/97 95 Room Air 08/12/17 18:10 137/97 08/12/17 18:07 71 97 08/12/17 18:05 72 18 139/88 96 Room Air 08/12/17 18:05 139/88 08/12/17 18:02 85 94 08/12/17 18:01 127/80 08/12/17 18:00 75 18 127/80 94 Room Air 08/12/17 17:57 74 95 08/12/17 17:56 126/85 08/12/17 17:55 75 18 126/85 94 Room Air 08/12/17 17:52 79 93 08/12/17 17:51 118/72 08/12/17 17:50 74 18 118/72 95 Room Air 08/12/17 17:47 71 96 08/12/17 17:46 136/81 08/12/17 17:45 80 18 136/81 97 Room Air 08/12/17 17:42 75 94 08/12/17 17:40 120/84 08/12/17 17:40 74 16 120/84 95 Room Air 08/12/17 17:37 83 91 08/12/17 17:35 68 16 105/76 99 Room Air 08/12/17 17:35 105/76 08/12/17 17:32 71 96 08/12/17 17:31 110/80 08/12/17 17:30 37.0 18 98 Room Air 08/12/17 17:29 71 18 110/80 96 Room Air 08/12/17 17:27 71 14 99 08/12/17 17:25 109/71 08/12/17 17:22 77 8 97 08/12/17 17:21 97/66 08/12/17 17:17 79 9 94 08/12/17 17:16 128/79 08/12/17 17:14 139/85 08/12/17 17:12 75 10 99 08/12/17 17:10 99 Room Air 4.0 08/12/17 17:10 113/81 08/12/17 17:07 74 6 128/86 99 08/12/17 17:02 79 20 96 08/12/17 17:00 136/80 08/12/17 17:00 77 08/12/17 16:57 126/81 08/12/17 16:48 36.9 76 18 116/77 96 Room Air Physical Exam GENERAL: Patient is awake, alert, and in no acute distress. Patient is resting comfortably and showing no signs of anxiety EYES: The conjunctivae are clear. The pupils are round and reactive. EARS, NOSE, MOUTH AND THROAT: The nose is without any evidence of any deformity. Mucous membranes are moist tongue is midline NECK: The neck is nontender and supple. RESPIRATORY: Normal respiratory effort is noted there is no evidence of wheezing rhonchi or rales CARDIOVASCULAR: Regular rate and rhythm noted there no murmurs rubs or gallops normal S1 normal S2 GASTROINTESTINAL: The abdomen is soft. Bowel sounds are present in all quadrants. Abdomen is nontender MUSCULOSKELETAL/EXTREMITIES: Shortening and rotation of left hip, patient resists range of motion of left hip. SKIN: There is no obvious evidence of any rash. There are no petechiae, pallor or cyanosis noted. NEUROLOGIC: Patient is awake alert and oriented x3 Medical Decision & Procedures ER Provider Diagnostic Interpretation: Radiology results as stated below per my review and radiologist interpretation: L PELVIS/UNILATERAL HIP 2-3VIEWS CLINICAL HISTORY: left hip pain pain COMPARISON: 05/25/2017. 05/24/2017. DISCUSSION: Lateral dislocation of the patient's left hip prosthetic. The left acetabular prosthetic is intact. There is a moderately angled fracture of the proximal femoral shaft medially adjacent to the femoral prosthetic. No evidence for acetabular protrusion. Pre-existing total right hip replacement as well as a low lumbar laminectomy and fusion. There is no evidence for soft tissue swelling. IMPRESSION: 1. Dislocation and fracture left hip. 2. The patient's left femoral prosthetic is dislocated laterally with evidence for an angled fracture through the proximal femoral shaft. 3. A plate and circumferential wires are noted surrounding the proximal metallic femoral prosthetic. 4. The plate appears angled as well 5. The acetabular prosthesis is intact. The above report was generated using voice recognition software. It may contain grammatical, syntax or spelling errors. Electronically signed by: Elias Song M.D. 08/12/2017 5:08 PM Dictated Date/Time: 08/12/2017 5:04 PM L HIP UNILATERAL 2 VIEWS CLINICAL HISTORY: post redustion COMPARISON: Earlier same date DISCUSSION: Anatomic alignment of the patient's total left hip prosthetic postreduction. Persistent fracture of the proximal femoral shaft with an associated retaining plate. This shows mild distraction and angulation in reference to the linear shaft of the femur. There is no evidence for soft tissue swelling. IMPRESSION: 1. Anatomic alignment status post left hip closed reduction. 2. Persistent rotational angulation of a linear fracture of the proximal femoral shaft containing a pre-existing linear plate and circumferential wires. The above report was generated using voice recognition software. It may contain grammatical, syntax or spelling errors. Electronically signed by: Elias Song M.D. 08/12/2017 5:44 PM Dictated Date/Time: 08/12/2017 5:38 PM Medications Administered Medications (Trade) Dose Ordered Sig/Fito Route Start Time Stop Time Status Last Admin Dose Admin Ondansetron HCl (Zofran Inj) 4 mg NOW STAT IV 08/12/17 16:19 08/12/17 16:21 DC 08/12/17 16:19 4 MG Morphine Sulfate (MoRPHine SULFATE INJ) 4 mg Q15M PRN IV 08/12/17 16:30 08/12/17 19:53 DC 08/12/17 17:37 4 MG Oxycodone/ Acetaminophen (Percocet 5-325mg Tab) 2 tab NOW ONCE PO 08/12/17 18:00 08/12/17 18:01 DC 08/12/17 18:02 2 TAB Procedure Procedural Sedation Indication left hip dislocation. Total time: 15 minutes. Written consent was obtained after the risks and benefits were explained to the patient, including, but not limited to aspiration, allergic reaction, breathing difficulties, cardiac complications, vomiting, pain, event recall, bleeding, and /or infection. Pre-sedation examination and paperwork completed. The patient was on 100% oxygen via NRB prior to the procedure. Continous end tidal CO2 monitoring, pulse oximetry, and cardiac monitoring were utilized. Suction, airway equipment, medications, respiratory equipment, and appropriate personnel were prepared prior to the initiation of the procedure. A time out was taken. Sedation was achieved utilizing 150 mg of Propofol. After I observed the patient had reached the appropriate level of sedation the main procedure was performed without complication. Sedation was discontinued and the monitoring continued. The patient recovered quickly from the effects of the medication without complication or adverse event. ED Course 1613: The patient was evaluated in room B9. A complete history and physical examination were performed. 1619: Ordered Zofran Inj 4mg IV. 1630: Ordered Morphine Sulfate 4mg IV. 1652: I discussed the patient's case with Dr. Hoffmann, orthopaedics. The patient will be evaluated for further management. 1656: Ordered Propofol 200mg IV. 1700: Ordered Propofol 1 dose IV. 1715: Ordered Propofol 150mg IV. 1725: The patient was sedated. 1800: Ordered Oxycodone/Acetaminophen 2 tab PO. Medical Decision The patient's history was concerning for traumatic injury. Differential diagnosis: Etiologies such as fracture, dislocation, neurovascular compromise, compartment syndrome, soft tissue injury, as well as others were entertained. The patient is a 52-year-old male who presented to the emergency department for left hip pain. The patient was seen at an outside emergency department in [place] his workup included a CAT scan of the abdomen and pelvis which revealed that his left hip was dislocated. The patient has a history of a left hip replacement with revision recently. The patient was transferred to our facility to be evaluated by orthopedics. The patient was evaluated by orthopedics and was felt to be a good candidate for reduction of the hip in the emergency department. The patient was n.p.o. for the proper amount of time. He was felt to be a good candidate for procedural sedation. The patient received propofol for sedation and the hip was able to be reduced without significant difficulty. The patient was reevaluated and treated with pain medication in the emergency department. He was recovered in the emergency department. He was given discharge instructions and encouraged to follow-up with his primary orthopedic physician and continue all medications as prescribed. Currently the patient resides at a alf and is receiving inpatient rehab. Medication Reconcilliation Current Medication List: was personally reviewed by me Blood Pressure Screening Patient's blood pressure: Normal blood pressure Blood pressure disposition: Did not require urgent referral Consults Time Called: 1651 Consulting Physician: , orthopedics Returned Call: 1651 I discussed the patient's case with Dr. Hoffmann, orthopaedics. The patient will be evaluated for further management. Impression Primary Impression: Dislocation of left hip Scribe Attestation The scribe's documentation has been prepared under my direction and personally reviewed by me in its entirety. I confirm that the note above accurately reflects all work, treatment, procedures, and medical decision making performed by me. Departure Information Dispostion Home / Self-Care Referrals Carmen Leahy D.O. (PCP) Forms HOME CARE DOCUMENTATION FORM, IMPORTANT VISIT INFORMATION Additional Instructions Follow-up with your primary orthopedic physician as scheduled. Continue all medications as prescribed. Continue using the pillow as well as the knee immobilizer as instructed. Problem Qualifiers Primary Impression: Dislocation of left hip Encounter type: initial encounter Qualified Codes: S73.005A - Unspecified dislocation of left hip, initial encounter
[2017-08-12] MEDS: MoRPHine SULFATE 4 MG/ML 1 ML CARP\\VIAL IV PRN ×2 (16:47→17:37)
[2017-08-12 16:48] VITALS: Ht 177.8 cm; Wt 92.6 kg
[2017-08-12] MEDS ORDERED: PROPOFOL IV EMULSION 10 MG/ML 20 ML VIAL IV ONE ×2 (16:56→17:15)
[2017-08-12] MEDS ORDERED: PROPOFOL IV EMULSION 10 MG/ML 100 ML VIAL IV PRN (17:00)
--- NOTE | 2017-08-12 17:09 | DIAGNOSTIC IMAGING REPORT ---
L PELVIS/UNILATERAL HIP 2-3VIEWS CLINICAL HISTORY: left hip pain pain COMPARISON: 05/25/2017. 05/24/2017. DISCUSSION: Lateral dislocation of the patient's left hip prosthetic. The left acetabular prosthetic is intact. There is a moderately angled fracture of the proximal femoral shaft medially adjacent to the femoral prosthetic. No evidence for acetabular protrusion. Pre-existing total right hip replacement as well as a low lumbar laminectomy and fusion. There is no evidence for soft tissue swelling. IMPRESSION: 1. Dislocation and fracture left hip. 2. The patient's left femoral prosthetic is dislocated laterally with evidence for an angled fracture through the proximal femoral shaft. 3. A plate and circumferential wires are noted surrounding the proximal metallic femoral prosthetic. 4. The plate appears angled as well 5. The acetabular prosthesis is intact. The above report was generated using voice recognition software. It may contain grammatical, syntax or spelling errors. Electronically signed by: Elias Song M.D. 08/12/2017 5:08 PM Dictated Date/Time: 08/12/2017 5:04 PM
[2017-08-12 17:30] VITALS: TEMP 37; O2SAT 98
--- NOTE | 2017-08-12 17:45 | DIAGNOSTIC IMAGING REPORT ---
L HIP UNILATERAL 2 VIEWS CLINICAL HISTORY: post redustion COMPARISON: Earlier same date DISCUSSION: Anatomic alignment of the patient's total left hip prosthetic postreduction. Persistent fracture of the proximal femoral shaft with an associated retaining plate. This shows mild distraction and angulation in reference to the linear shaft of the femur. There is no evidence for soft tissue swelling. IMPRESSION: 1. Anatomic alignment status post left hip closed reduction. 2. Persistent rotational angulation of a linear fracture of the proximal femoral shaft containing a pre-existing linear plate and circumferential wires. The above report was generated using voice recognition software. It may contain grammatical, syntax or spelling errors. Electronically signed by: Elias Song M.D. 08/12/2017 5:44 PM Dictated Date/Time: 08/12/2017 5:38 PM
[2017-08-12] MEDS ORDERED: OXYCODONE/ACETAMINOPHEN 5-325 TAB PO ONE (18:00)
--- NOTE | 2017-08-12 18:00 | Orthopedic Consultation ---
Orthopedic Consultation Date of Consultation: Aug 12, 2017. Attending Physician: Dr. Brice Reason for Consultation: Left total hip dislocation History of Present Illness Mr. Goldman is a 52-year-old male who recently underwent a left revision total hip arthroplasty 1 week ago on August [address] Hoffmann, and now has at least a 3 day history of left hip pain and difficulty with ambulation. He originally had a left total hip arthroplasty around 2009 in [place]. This subsequently became infected, and he underwent stage I of a 2 stage revision total hip arthroplasty for infection on May 17. He says it the following day he had a ground-level fall with therapy, and sustained a femur fracture. Because of his infection, the fracture was not treated until stage II of the revision. He underwent stage II of his revision total hip arthroplasty with ORIF of a greater trochanter fracture on August [address] Hoffmann. He has been in a intermediate since he was discharged after his surgery. The patient states that his left hip has been externally rotated ever since the surgery. He has had approximately 3 days of left lower abdomen/hip pain. He originally thought this was his chronic abdominal pain from pancreatitis. He denies any obvious injury or incident where his hip may have been dislocated. He had difficulty with ambulation, and eventually a left hip x-ray was taken, showing the dislocation. He was taken to the [place] emergency department or treatment of this, who then requested transfer to [facility] for orthopedic care. Family History Patient reports no known family medical history. Social History Smoking Status: Former Smoker Alcohol Use: none Drug Use: none Allergies Coded Allergies: No Known Allergies (Unverified , 08/12/17) Home Medications Scheduled Aspirin (Aspirin), 1 TAB PO BIDM Atorvastatin (Lipitor), 1 TAB PO DAILY Celecoxib (Celebrex), 200 MG PO BID Cyclobenzaprine HCl (Cyclobenzaprine HCl), 1 TAB PO TID Escitalopram (Lexapro), 10 MG PO DAILY Ferrous Sulfate (Ferrous Sulfate), 1 TAB PO TID Gabapentin (Neurontin), 600 MG PO Q6 Hydralazine Hcl (Apresoline), 1 TAB PO TID Metoclopramide (Reglan), 10 MG PO BID Nystatin (Topical) (Nystatin), 1 APPLN TOP TID Omeprazole (Prilosec), 20 MG PO BID Potassium Ext Rel (Klor-Con), 20 MEQ PO DAILY Valsartan (Diovan), 1 TAB PO DAILY Venlafaxine Hcl (Venlafaxine Extended Rel), 1 CAP PO DAILY Zolpidem Tartrate (Ambien), 10 MG PO HS Scheduled PRN Acetaminophen (Tylenol), 1,000 MG PO Q8 PRN for Pain Bisacodyl (Dulcolax), 1 SUPP [place] UD PRN for Constipation Clonazepam (Klonopin), 0.5 MG PO BID PRN for Anxiety Oxycodone/Acetaminophen 5MG/325MG (Percocet 5MG/325MG), 1-2 TABLETS PO Q4H PRN for Pain Miscellaneous Medications Sucralfate (Sucralfate), 1 GM PO Current Inpatient Medications Current Inpatient Medications Medications (Trade) Dose Ordered Sig/Fito Route Start Time Stop Time Status Last Admin Dose Admin Morphine Sulfate (MoRPHine SULFATE INJ) 4 mg Q15M PRN IV 08/12/17 16:30 08/26/17 16:29 08/12/17 16:47 4 MG Propofol (Diprivan Iv Emulsion 100ml Vial) 1 dose UD PRN IV 08/12/17 17:00 08/15/17 16:59 Review of Systems Musculoskeletal: + joint pain Physical Exam Date Time Temp Pulse Resp B/P (MAP) Pulse Ox O2 Delivery O2 Flow Rate FiO2 08/12/17 17:29 71 18 110/80 96 Room Air 08/12/17 16:48 36.9 76 18 116/77 96 Room Air Left leg: Left lower extremity is shortened and externally rotated. Motor and sensory is intact distally in the tibial and peroneal nerve distributions, with 5 out of 5 strength on ankle and toe dorsiflexion and plantarflexion. Foot is warm and well perfused. He has a well-healing surgical incision at his left hip with the surgical veronique still in place. No evidence of infection. He has left hip pain with attempts at range of motion. Extremities/Musculoskelatal: no calf tenderness, normal capillary refill, no pedal edema Laboratory Results Radiology: Left hip x-rays show revision total hip components in good position. There are 2 cerclage wires and a greater trochanteric plate in place. His fracture line is still visible, with no obvious healing, which is not unexpected only 1 week out from surgery. Assessment & Plan (1) Dislocation of left hip He has a dislocation of his recent revision left total hip arthroplasty. By his history, it sounds like it has been dislocated for at least 3 days, but he denies any significant traumatic event or other inciting cause. I advised him that since this is a revision implant with a fracture, and has been dislocated for several days, this may be a difficult to reduce. I recommended an attempted conscious sedation and closed reduction, but warned him we may have to go to the operating room if this is he reducible for some of his components become dislodged, which is a significant possibility. He understands all this, and informed consent was obtained. Conscious sedation was then induced by the emergency department staff using propofol. After sedation was achieved, closed reduction maneuver was performed by hip flexion and longitudinal traction on the hip with countertraction on the pelvis. The hip reduced without much difficulty. The left knee was immediately placed in a knee immobilizer and abduction pillow was placed to avoid hip flexion and abduction. Postreduction hip x-rays show a reduced total hip. No displacement of his greater trochanteric fracture or his previous hardware. No evidence of hardware failure. There are no complications from procedure. He was discharged back to intermediate in good condition, with the knee immobilizer and hip abduction pillow in place. He was instructed to follow up with Dr. Hoffmann. I was covering Orthopedic Surgery call for Dr. Calloway, who was unavailable. Jersey Guthrie MD Problem Qualifiers (1) Dislocation of left hip: Encounter type: initial encounter Qualified Codes: S73.005A - Unspecified dislocation of left hip, initial encounter
[2017-08-12 19:19] VITALS: BP 142/93; PULSE 75; TEMP 37; O2SAT 95
--- NOTE | 2017-08-12 22:06 | Post Sedation Assessment ---
Post Sedation Assessment General Date of Sedation Aug 12, 2017. Vital Signs: Vital Signs Past 12 Hours Date Time Temp Pulse Resp B/P (MAP) Pulse Ox O2 Delivery O2 Flow Rate FiO2 08/12/17 19:19 37.0 75 18 142/93 95 08/12/17 18:17 75 142/93 95 08/12/17 18:15 75 18 142/93 96 Room Air 08/12/17 18:12 75 93 08/12/17 18:10 80 18 137/97 95 Room Air 08/12/17 18:10 137/97 08/12/17 18:07 71 97 08/12/17 18:05 72 18 139/88 96 Room Air 08/12/17 18:05 139/88 08/12/17 18:02 85 94 08/12/17 18:01 127/80 08/12/17 18:00 75 18 127/80 94 Room Air 08/12/17 17:57 74 95 08/12/17 17:56 126/85 08/12/17 17:55 75 18 126/85 94 Room Air 08/12/17 17:52 79 93 08/12/17 17:51 118/72 08/12/17 17:50 74 18 118/72 95 Room Air 08/12/17 17:47 71 96 08/12/17 17:46 136/81 08/12/17 17:45 80 18 136/81 97 Room Air 08/12/17 17:42 75 94 08/12/17 17:40 120/84 08/12/17 17:40 74 16 120/84 95 Room Air 08/12/17 17:37 83 91 08/12/17 17:35 68 16 105/76 99 Room Air 08/12/17 17:35 105/76 08/12/17 17:32 71 96 08/12/17 17:31 110/80 08/12/17 17:30 37.0 18 98 Room Air 08/12/17 17:29 71 18 110/80 96 Room Air 08/12/17 17:27 71 14 99 08/12/17 17:25 109/71 08/12/17 17:22 77 8 97 08/12/17 17:21 97/66 08/12/17 17:17 79 9 94 08/12/17 17:16 128/79 08/12/17 17:14 139/85 08/12/17 17:12 75 10 99 08/12/17 17:10 99 Room Air 4.0 08/12/17 17:10 113/81 08/12/17 17:07 74 6 128/86 99 08/12/17 17:02 79 20 96 08/12/17 17:00 136/80 08/12/17 17:00 77 08/12/17 16:57 126/81 08/12/17 16:48 36.9 76 18 116/77 96 Room Air Post Procedure Recovery Score Activity: (2) Moves 4 extremities * Respiration: (2) Deep breath/cough Circulation: (2) +/-20% PreAnes Value Consciousness: (2) Fully Awake Oxygen Saturation: (2) > 92% On Room Air Post Anesthesia Score: 8 Discharge Sedation Level of Care: Phase I Post Sedation Plan On clinical assessment, the patient appears to have tolerated the sedation without complications. Patient is recovering as anticipated. Patient will continue to be monitored by nursing and may be discharged when sedation discharge criteria are met per below protocol. Upon Completions of procedure and additional 15 minutes continue every 5 minute vital signs and the P.A.R. score; then discharge to a Phase I or Fast Track to Phase II per the following guidelines: * Discharge Patient to appropriate Phase II area if PAR is 8 or greater or return to pre- procedure baseline. The post - procedure orders will be as directed. * If PAR score is less than 8 or not return to pre-procedure baseline then patient will follow Phase I monitoring till PAR is reached for Phase II. The Phase I may be done in procedure room or may call to secure a Phase I area. * If naloxone or flumazenil are used for reversal, hold in Phase I for an additional 60 -120 minutes before discharge to Phase II. Please call the Sedation Physician to re-evaluate and complete post-note for discharge to Phase II area. Do NOT discharge from procedure sedation or Phase 1 until post- sedation evaluation note is complete by procedure /sedation MD Sedation Discharge Instructions to be given to the patient at discharge to home.
--- NOTE | 2017-08-12 22:06 | Pre Sedation Assessment ---
Pre Sedation Assessment General Date of Sedation: Aug 12, 2017. Vital Signs Past 12 Hours Date Time Temp Pulse Resp B/P (MAP) Pulse Ox O2 Delivery O2 Flow Rate FiO2 08/12/17 19:19 37.0 75 18 142/93 95 08/12/17 18:17 75 142/93 95 08/12/17 18:15 75 18 142/93 96 Room Air 08/12/17 18:12 75 93 08/12/17 18:10 80 18 137/97 95 Room Air 08/12/17 18:10 137/97 08/12/17 18:07 71 97 08/12/17 18:05 72 18 139/88 96 Room Air 08/12/17 18:05 139/88 08/12/17 18:02 85 94 08/12/17 18:01 127/80 08/12/17 18:00 75 18 127/80 94 Room Air 08/12/17 17:57 74 95 08/12/17 17:56 126/85 08/12/17 17:55 75 18 126/85 94 Room Air 08/12/17 17:52 79 93 08/12/17 17:51 118/72 08/12/17 17:50 74 18 118/72 95 Room Air 08/12/17 17:47 71 96 08/12/17 17:46 136/81 08/12/17 17:45 80 18 136/81 97 Room Air 08/12/17 17:42 75 94 08/12/17 17:40 120/84 08/12/17 17:40 74 16 120/84 95 Room Air 08/12/17 17:37 83 91 08/12/17 17:35 68 16 105/76 99 Room Air 08/12/17 17:35 105/76 08/12/17 17:32 71 96 08/12/17 17:31 110/80 08/12/17 17:30 37.0 18 98 Room Air 08/12/17 17:29 71 18 110/80 96 Room Air 08/12/17 17:27 71 14 99 08/12/17 17:25 109/71 08/12/17 17:22 77 8 97 08/12/17 17:21 97/66 08/12/17 17:17 79 9 94 08/12/17 17:16 128/79 08/12/17 17:14 139/85 08/12/17 17:12 75 10 99 08/12/17 17:10 99 Room Air 4.0 08/12/17 17:10 113/81 08/12/17 17:07 74 6 128/86 99 08/12/17 17:02 79 20 96 08/12/17 17:00 136/80 08/12/17 17:00 77 08/12/17 16:57 126/81 08/12/17 16:48 36.9 76 18 116/77 96 Room Air Pre-Sedation Airway Assessment Smoking Status: Former Smoker Hx of Sleep Apnea: No Hx of difficult intubation: No Short Thick Neck: No Thyro-mental Distance: > 3 Finger Breadths Oral Cavity: WNL Mallampati Classification: Class I ASA Classification: Class I NPO Status Date of Last Intake of Fluids: Aug 11, 2017 Date of Last Intake of Solids: Aug 11, 2017 Procedure Planning Contraindications for Sedation: None Current Medications Reviewed: Yes Notes The planned sedation has been discussed with the patient. Informed Consent was obtained. I have identified the patient, determined the appropriateness of sedation and have assessed the patient immediately prior to the procedure. All medicine(s) and interventions are by my order.
[2017-08-13] MEDS ORDERED: AMLO5TAB12 PO (12:25)
[2017-08-13] MEDS ORDERED: CLON0.5T3 PO (12:25)
[2017-08-13] MEDS ORDERED: MULT-513 PO (12:25)
[2017-08-13] MEDS ORDERED: GABA-1218 PO (12:25)
[2017-08-13] MEDS ORDERED: PROM25TA9 PO (12:25)
[2017-08-13] MEDS ORDERED: ACET-1311 PO (12:25)
[2017-08-13] MEDS ORDERED: SENN-65 PO (12:25)
[2017-08-13] MEDS ORDERED: CLIN300C2 PO (12:25)
[2017-08-13] MEDS ORDERED: FLUO20CA35 PO (12:25)
[2017-08-13] MEDS ORDERED: ASPI81TA28 PO (12:25)
[2017-08-13] MEDS ORDERED: MELA1TAB5 PO (12:25)
[2017-08-13] MEDS ORDERED: HYDR100T12 PO (12:25)
[2017-08-13] MEDS ORDERED: HYDR-4383 PO (12:25)
[2017-08-13] MEDS ORDERED: ATEN-175 PO (12:25)
== END 2017-08-12 19:28 | disposition home or self-care (01) ==
LOC: EDBD 16:13 → C.EDB 16:14
DX: T84.021A Dislocation of internal left hip prosthesis, initial encounter (principal); X58.XXXA Exposure to other specified factors, initial encounter; Z96.642 Presence of left artificial hip joint; Z96.641 Presence of right artificial hip joint; Z87.891 Personal history of nicotine dependence; Z79.82 Long term (current) use of aspirin

== ENCOUNTER 2017-08-13 10:22 | Emergency (ER) | payer OTHER ==
[2017-08-13] VITALS (12 sets, daily range): BP systolic 87–124; BP diastolic 53–82; PULSE 66–74; TEMP 36.6; O2SAT 95–100; Ht 177.8 cm; Wt 87.7 kg
[~2017-08-13] VITALS: Ht 177.8 cm; Wt 87.7 kg
[~2017-08-13 10:22] MED LIST changes: -RCPAV1 IV; -VANC500I IV
[2017-08-13] MEDS ORDERED: HYDROmorphone INJ 1 MG/ML SYR IV STA (11:00)
--- NOTE | 2017-08-13 11:08 | EMERGENCY ROOM VISIT NOTE ---
History Report prepared by Eduard: Chalo Vaca Under the Supervision of: Dr. Mike Huang M.D. First contact with patient: 10:26 Stated Complaint: HIP PAIN History of Present Illness The patient is a 52 year old male who presents to the Emergency Room with complaints of constant, severe, left hip pain beginning this morning. Patient states he was in the emergency department last night after he had a hip dislocation and had it reduced. He reports he went to sleep last night, and when he woke up, his left hip was dislocated. He states he cannot move his hip without causing his discomfort to increase. The patient notes his last meal was yesterday, and he did not fall. Source of History: patient Onset: this morning Position: other (left hip) Symptom Intensity: severe Timing: constant Modifying Factors (Worsening): movement Note: Denies: falling Review of Systems See HPI for pertinent positives and negatives. A total of ten systems were reviewed and were otherwise negative. Past Medical & Surgical Medical Problems: (1) Dislocation of left hip (2) Infected prosthesis of left hip Family History Patient reports no known family medical history. Social History Smoking Status: Former Smoker Drug Use: none Housing Status: prison Occupation Status: disabled Current/Historical Medications Scheduled Amlodipine Besylate-Valsartan (Exforge), 1 TAB PO DAILY Aspirin (Aspirin Ec), 81 MG PO BID Atenolol (Tenormin), 100 MG PO DAILY Atorvastatin (Lipitor), 20 MG PO HS Clindamycin Hcl (Cleocin), 1 CAP PO BID Clonazepam (Klonopin), 0.5 MG PO BID Fluoxetine (Prozac), 20 MG PO DAILY Gabapentin (Neurontin), 300 MG PO TID Hydralazine Hcl (Apresoline), 100 MG PO TID Melatonin (Kp Melatonin), 1 TAB PO HS Multivitamins/Minerals (Mvi With Minerals), 1 TAB PO DAILY Omeprazole (Prilosec), 20 MG PO BID Senna/Docusate Sod (Senokot S), 2 TAB PO QAM Scheduled PRN Acetaminophen (Tylenol), 650 MG PO Q6 PRN for Pain or Fever Hydrocodone/Acetaminophen ([place]ia 10/325 Tab), 1 TAB PO Q6 PRN for Pain Promethazine Hcl (Phenergan), 25 MG PO Q6H PRN for Nausea Zolpidem Tartrate (Ambien), 10 MG PO HS PRN for Sleep Allergies Coded Allergies: No Known Allergies (Unverified , 08/13/17) Physical Exam Vital Signs Date Time Temp Pulse Resp B/P (MAP) Pulse Ox O2 Delivery O2 Flow Rate FiO2 08/13/17 16:30 68 12 91/66 96 Room Air 08/13/17 15:30 73 18 94/63 97 Room Air 08/13/17 14:24 67 15 130/73 96 Room Air 08/13/17 13:36 74 20 124/72 98 Room Air 08/13/17 13:30 70 18 124/72 99 Room Air 08/13/17 13:25 74 18 118/78 99 Nasal Cannula 2.0 08/13/17 13:20 70 18 121/82 99 Nasal Cannula 2.0 08/13/17 13:15 69 18 106/78 100 Nasal Cannula 2.0 08/13/17 13:10 72 18 89/72 98 Nasal Cannula 2.0 08/13/17 13:05 70 18 97/58 96 Nasal Cannula 2.0 08/13/17 13:00 68 18 87/53 97 Nasal Cannula 2.0 08/13/17 12:55 69 18 114/81 98 Nasal Cannula 2.0 08/13/17 12:50 69 18 117/74 98 Nasal Cannula 2.0 08/13/17 12:48 70 18 106/72 96 Nasal Cannula 2.0 08/13/17 12:44 71 08/13/17 12:02 70 16 100/77 97 Room Air 08/13/17 10:32 36.6 76 18 116/79 97 Room Air Physical Exam Physical Exam GENERAL: He is oriented to person, place, and time. H appears well-developed and well-nourished. He does not appear distressed. ____ HENT: Exam performed. Head: Normocephalic and atraumatic. Right Ear: External ear normal. No mastoid tenderness. Left Ear: External ear normal. No mastoid tenderness. Mouth/Throat: The oropharynx is clear and moist. No trismus in the jaw. No dental abscesses or uvula swelling. No oropharyngeal exudate or tonsillar abscesses. ____ EYES: Conjunctivae and EOM are normal. Pupils are equal, round, and reactive to light. Right eye exhibits no discharge. Left eye exhibits no discharge. No scleral icterus. ____ NECK: Normal range of motion. Neck supple. No JVD present. No spinous process tenderness present. No carotid bruit present. No rigidity. No tracheal deviation and normal range of motion present. No Brudzinski's sign and no Kernig 's sign noted. ____ CV: Normal rate, regular rhythm, normal heart sounds and intact distal pulses. There is no peripheral edema. Palpable radial pulses bue. ____ PULM/CHEST: Effort normal and breath sounds normal. No respiratory distress. No stridor. He has no wheezes. He has no rales. Chest Wall: He exhibits no tenderness. ____ ABD: The abdomen is soft. Bowel sounds are normal. He has no distension. No mass is present. There is no tenderness. There is no rebound, no guarding, no Heller's sign and no tenderness at McBurney's point. Rovsig negative MUSC/SKEL: There is no peripheral edema. Left lower extremity is shortened and externally rotated. Still in a brace. LYMPH: No cervical adenopathy. ____ NEURO: He is alert and oriented to person, place, and time. He has normal strength. No cranial nerve deficit or sensory deficit. Coordination and gait normal. GCS eye subscore is 4. GCS verbal subscore is 5. GCS motor subscore is 6. cerbellar tests wnl. ____ SKIN: Skin is warm and dry. He is not diaphoretic. ____ PSYCH: He has a normal mood and affect. His behavior is normal. Judgment and thought content normal. ____ Medical Decision & Procedures ER Provider Diagnostic Interpretation: X-ray: Per my interpretation, radiologist review. PELVIS 1 OR 2 VIEW ROUTINE CLINICAL HISTORY: 52 years-old Male presenting with hip dislocation. TECHNIQUE: Single frontal view the pelvis was obtained. COMPARISON: 08/12/2017. FINDINGS: Redemonstration of dislocation of the left hip prosthesis from the prosthetic left acetabulum. Overlying skin veronique noted. A periprosthetic fracture is evident in the subtrochanteric proximal left femoral metaphysis. Total right hip arthroplasty normal-appearing. Bony pelvis within normal limits. Partially visualized posterior lumbar fusion hardware. Suggestion of radiolucency at the left L5 screw. IMPRESSION: 1. Redemonstration of left hip dislocation. 2. Periprosthetic proximal left femoral metaphyseal fracture. 3. Radiolucency surrounds the left L5 pedicle screw suggesting loosening or infection. Electronically signed by: Isma Lechuga M.D. 08/13/2017 11:52 AM Dictated Date/Time: 08/13/2017 11:50 AM L HIP UNILATERAL 2 VIEWS CLINICAL HISTORY: 52 years-old Male presenting with L ARNAUD dislocation. TECHNIQUE: Frontal and crosstable lateral views of the left hip were obtained. COMPARISON: 08/12/2017. FINDINGS: Total left hip arthroplasty in anatomic alignment. Buttress plate and cerclage wire fixation of the periprosthetic fracture. The buttress plate is angulated posteriorly with the fracture fragment. Overlying skin veronique evidence of recent surgery. No subluxation of the prosthetic femoral head. Regional soft tissue swelling suggested. IMPRESSION: Total left hip prosthesis in anatomic alignment. Redemonstration of periprosthetic fracture with malalignment of the buttress plate. Electronically signed by: Isma Lechuga M.D. 08/13/2017 1:16 PM Dictated Date/Time: 08/13/2017 1:10 PM Laboratory Results 08/13/17 13:25 Test 08/13/17 13:25 Anion Gap 3.0 mmol/L (3-11) Est Creatinine Clear Calc Drug Dose 142.3 ml/min Estimated GFR () 127.1 Estimated GFR (Non- 109.7 BUN/Creatinine Ratio 19.3 (10-20) Calcium Level 8.5 mg/dl (8.5-10.1) Magnesium Level 2.0 mg/dl (1.8-2.4) Laboratory results reviewed by me Medications Administered Medications (Trade) Dose Ordered Sig/Fito Route Start Time Stop Time Status Last Admin Dose Admin Hydromorphone HCl (Dilaudid Inj) 1 mg ONE STAT IV 08/13/17 11:00 08/13/17 11:01 DC 08/13/17 11:12 1 MG Fentanyl Citrate (Fentanyl Inj) 50 mcg NOW STAT IV 08/13/17 12:16 08/13/17 12:17 DC 08/13/17 13:09 50 MCG Propofol (Diprivan Iv Emulsion 20ml Vial) 200 mg STK-MED ONCE IV 08/13/17 12:31 08/13/17 12:32 DC 08/13/17 12:55 80 MG Hydromorphone HCl (Dilaudid Inj) 0.5 mg NOW STAT IV 08/13/17 13:50 08/13/17 13:51 DC 08/13/17 13:54 0.5 MG Ketorolac Tromethamine (Toradol Inj) 30 mg STK-MED ONCE .ROUTE 08/13/17 15:42 08/13/17 15:43 DC 08/13/17 15:49 15 MG Procedure Procedural Sedation Indication Left hip reduction. Total time: 40 minutes. Written consent was obtained after the risks and benefits were explained to the patient, including, but not limited to aspiration, allergic reaction, breathing difficulties, cardiac complications, vomiting, pain, event recall, bleeding, and /or infection. Pre-sedation examination and paperwork completed. The patient was on 100% oxygen via NRB prior to the procedure. Continuos end tidal CO2 monitoring, pulse oximetry, and cardiac monitoring were utilized. Suction, airway equipment, medications, respiratory equipment, and appropriate personnel were prepared prior to the initiation of the procedure. A time out was taken. Sedation was achieved utilizing 80 mg of Propofol. After I observed the patient had reached the appropriate level of sedation the main procedure was performed without complication. Sedation was discontinued and the monitoring continued. The patient recovered quickly from the effects of the medication. He patient became transiently hypotensive. He responded to an IV bolus of fluid. On the monitor the patient also developed a few PVCs. An EKG was performed to show a sinus rhythm with a rate of 70. NH, and QTc were within normal limits. PVCs were present. No ST depression or elevation. No evidence of V. tach. ECG Indication: other (transient HTN) Rate (beats per minute): 70 Rhythm: sinus rhythm Findings: PVC, other (NH and QTc is wnl. No ST depression or elevation.) Change: Patient's electrocardiogram was interpreted by me. ED Course 1054: The patient was evaluated in room C09. A complete history and physical exam was performed. 1100: Ordered Dilaudid Inj 1mg IV 1105: Review of EMR shows the patient was seen in the ED yesterday. He had a dislocated left hip. He was seen by Dr. Guthrie, Orthopedic Surgery, the on- call doctor for Dr. Ding, who reduced the patient's hip under conscious sedation. 1212: I discussed the patient's case with Dr. Guthrie, Orthopedic Surgery. The patient had his surgery in [place] by a physician there. He states he will reevaluate the patient for a repeat reduction. 1216: Ordered Fentanyl Citrate 50mcg IV 1231: Ordered Propofol 80 mg IV 1234: I discussed the reduction process with the patient. He has agreed to have orthopedics reduce his hip under conscious sedation. 1313: The reduction was completed by Dr. Guthrie under conscious sedation performed by me. See procedure notes by Dr. Guthrie for the reduction, and the nurse notes and my procedure note for sedation information. 80mg of Propofol was given after the procedure was complete. The patient became transiently hypotensive. He responded to an IV bolus of fluid. On the monitor the patient also developed a few PVCs. An EKG was performed to show a sinus rhythm with a rate of 70. NH, and QTc were within normal limits. PVCs were present. No ST depression or elevation. No evidence of V. tach. The patient states he has not eaten anything in more than 36 hours. I will check a set of electrolytes to ensure that is not causing the patient to have PVCs. The patient denies chest pain, shortness of breath, and palpitations. He is completely asymptomatic. 1315: I discussed the patient's case with Dr. Guthrie again. The patient's surgeon would like him to be transferred to [place]. Dr. Guthrie will handle the transfer notes. 1322: Ordered Toradol Inj 15mg IV. Patient refused. 1327: The trade union secretary informed me [place] has been on [facility] and does not have any beds. They will call us when they have an open bed. 1339: I updated Dr. Guthrie. He states if [place] does not have beds, he will admit the patient to [facility] for further management and care. 1350: Ordered Dilaudid Inj 0.5mg IV 1542: Ordered Toradol Inj 30mg IV. Tolerating p.o. 1621: Dr. Guthrie states orthopedics would still like the patient to be transported to [place] if possible. 1711: I discussed the patient's case with Dr. Hoffmann, [place] [facility]. The patient was accepted as a transfer patient and will be evaluated for further management and care. Medical Decision The reduction was completed by Dr. Guthrie under conscious sedation performed by me. See procedure notes by Dr. Guthrie for the reduction, and the nurse notes and my procedure note for sedation information. 80mg of Propofol was given after the procedure was complete. The patient became transiently hypotensive. He responded to an IV bolus of fluid. On the monitor the patient also developed a few PVCs. An EKG was performed to show a sinus rhythm with a rate of 70. NH, and QTc were within normal limits. PVCs were present. No ST depression or elevation. No evidence of V. tach. The patient states he has not eaten anything in more than 36 hours. Electrolytes were within normal limits. There was a delay in transfer due to the receiving facility [place] not having available beds. The surgeon at [place] was able to coordinate the patient's transfer and accepted the patient under his care. During this time. The patient was completely hemodynamically stable, tolerating p.o., tolerated pain meds as needed extreme pain. Will transfer in stable condition Medication Reconcilliation Current Medication List: was personally reviewed by me Blood Pressure Screening Patient's blood pressure: Normal blood pressure Consults Time Called: 1202 Consulting Physician: Dr. Guthrie, Orthopedic Surgery Returned Call: 1212 I discussed the patient's case with Dr. Guthrie, Orthopedic Surgery. The patient had his surgery in [place] by a physician there. He states he will reevaluate the patient for a repeat reduction. 1315: I discussed the patient's case with Dr. Guthrie again. The patient's surgeon would like him to be transferred to [place]. Dr. Guthrie will handle the transfer notes. 1339: I updated Dr. Guthrie. He states if [place] does not have beds, he will admit the patient to [facility] for further management and care. 1621: Dr. Guthrie states orthopedics would still like the patient to be transported to [place] if possible. Additional Consults: Time Called: 1708 Consulted Physician: Dr. Hoffmann, [place] [facility] Returned Call: 1711 Additional Comments: I discussed the patient's case with Dr. Hoffmann, [place] [facility]. The patient was accepted as a transfer patient and will be evaluated for further management and care. Impression Primary Impression: Hip dislocation, left Scribe Attestation The scribe's documentation has been prepared under my direction and personally reviewed by me in its entirety. I confirm that the note above accurately reflects all work, treatment, procedures, and medical decision making performed by me. The chart was completed utilizing [employer] Speech voice recognition software. Grammatical errors, random word insertions, pronoun errors, and incomplete sentences are an occasional consequence of this system due to software limitations, ambient noise, and hardware issues. Any formal questions or concerns about the content, text, or information contained within the body of this dictation should be directly addressed to the physician for clarification. Departure Information Dispostion Transfer Acute Care Facility Referrals Carmen Leahy D.O. (PCP)
--- NOTE | 2017-08-13 11:53 | DIAGNOSTIC IMAGING REPORT ---
PELVIS 1 OR 2 VIEW ROUTINE CLINICAL HISTORY: 52 years-old Male presenting with hip dislocation. TECHNIQUE: Single frontal view the pelvis was obtained. COMPARISON: 08/12/2017. FINDINGS: Redemonstration of dislocation of the left hip prosthesis from the prosthetic left acetabulum. Overlying skin veronique noted. A periprosthetic fracture is evident in the subtrochanteric proximal left femoral metaphysis. Total right hip arthroplasty normal-appearing. Bony pelvis within normal limits. Partially visualized posterior lumbar fusion hardware. Suggestion of radiolucency at the left L5 screw. IMPRESSION: 1. Redemonstration of left hip dislocation. 2. Periprosthetic proximal left femoral metaphyseal fracture. 3. Radiolucency surrounds the left L5 pedicle screw suggesting loosening or infection. Electronically signed by: Isma Lechuga M.D. 08/13/2017 11:52 AM Dictated Date/Time: 08/13/2017 11:50 AM
[2017-08-13] MEDS ORDERED: FENTANYL CITRATE INJ 50 MCG/1 ML 2 ML VIAL IV STA (12:16)
[2017-08-13] MEDS ORDERED: ASPI81TA28 PO (12:25)
[2017-08-13] MEDS ORDERED: MELA1TAB5 PO (12:25)
[2017-08-13] MEDS ORDERED: HYDR-4383 PO (12:25)
[2017-08-13] MEDS ORDERED: PROM25TA9 PO (12:25)
[2017-08-13] MEDS ORDERED: CLON0.5T3 PO (12:25)
[2017-08-13] MEDS ORDERED: HYDR100T12 PO (12:25)
[2017-08-13] MEDS ORDERED: ATEN-175 PO (12:25)
[2017-08-13] MEDS ORDERED: ACET-1311 PO (12:25)
[2017-08-13] MEDS ORDERED: AMLO5TAB12 PO (12:25)
[2017-08-13] MEDS ORDERED: FLUO20CA35 PO (12:25)
[2017-08-13] MEDS ORDERED: SENN-65 PO (12:25)
[2017-08-13] MEDS ORDERED: GABA-1218 PO (12:25)
[2017-08-13] MEDS ORDERED: MULT-513 PO (12:25)
[2017-08-13] MEDS ORDERED: CLIN300C2 PO (12:25)
[2017-08-13] MEDS ORDERED: PROPOFOL IV EMULSION 10 MG/ML 20 ML VIAL IV ONE (12:31)
--- NOTE | 2017-08-13 13:17 | DIAGNOSTIC IMAGING REPORT ---
L HIP UNILATERAL 2 VIEWS CLINICAL HISTORY: 52 years-old Male presenting with L ARNAUD dislocation. TECHNIQUE: Frontal and crosstable lateral views of the left hip were obtained. COMPARISON: 08/12/2017. FINDINGS: Total left hip arthroplasty in anatomic alignment. Buttress plate and cerclage wire fixation of the periprosthetic fracture. The buttress plate is angulated posteriorly with the fracture fragment. Overlying skin veronique evidence of recent surgery. No subluxation of the prosthetic femoral head. Regional soft tissue swelling suggested. IMPRESSION: Total left hip prosthesis in anatomic alignment. Redemonstration of periprosthetic fracture with malalignment of the buttress plate. Electronically signed by: Isma Lechuga M.D. 08/13/2017 1:16 PM Dictated Date/Time: 08/13/2017 1:10 PM
[2017-08-13] MEDS ORDERED: KETOROLAC TROMETHAMINE 30 MG/ML VIAL IV STA (13:22)
[2017-08-13] MEDS ORDERED: HYDROmorphone INJ 0.5 MG/0.5 ML SYR IV STA ×2 (13:50→17:57)
[2017-08-13 14:02] LABS: CALCIUM 8.5 mg/dl (8.5-10.1); CREATININE 0.67 mg/dl (0.60-1.40); POTASSIUM 3.9 mmol/L (3.5-5.1)
[2017-08-13] MEDS ORDERED: KETOROLAC TROMETHAMINE 30 MG/ML VIAL ONE (15:42)
[2017-08-13] MEDS ORDERED: KETOROLAC TROMETHAMINE 15 MG/ML VIAL IV. STA (15:46)
--- NOTE | 2017-08-13 16:53 | Orthopedic Consultation ---
Orthopedic Consultation Date of Consultation: Aug 13, 2017. Attending Physician: Reason for Consultation: Dislocated left total hip arthroplasty History of Present Illness Mr. Goldman is a 52-year-old male who recently underwent a left revision total hip arthroplasty 1 week ago on August [address] 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 He originally had a left total hip arthroplasty around 2009 in [place]. This subsequently became infected, and he underwent stage I of a 2 stage revision total hip arthroplasty for infection on May 17. He says it the following day he had a ground-level fall with therapy, and sustained a femur fracture. Because of his infection, the fracture was not treated until stage II of the revision. He underwent stage II of his revision total hip arthroplasty with ORIF of a greater trochanter fracture on August [address] Hoffmann. He has been in a [facility] since he was discharged after his surgery. The patient states that his left hip has been externally rotated ever since the surgery. He has had approximately 3 days of left lower abdomen/hip pain. He originally thought this was his chronic abdominal pain from pancreatitis. He denies any obvious injury or incident where his hip may have been dislocated. He had difficulty with ambulation, and eventually a left hip x-ray was taken, showing a dislocation. He brought to [facility] yesterday. The hip was reduced under conscious sedation, and he was discharged back to the [facility] with a knee immobilizer and hip abduction pillow. He states that he kept these devices in place overnight at the [facility], but woke up early this morning with the hip dislocated again, without any trauma or obvious cause. He was then brought back to [facility] for further care. Family History Patient reports no known family medical history. Social History Smoking Status: Former Smoker Drug Use: none Housing Status: [facility] Occupation Status: disabled Allergies Coded Allergies: No Known Allergies (Unverified , 08/13/17) Home Medications Scheduled Amlodipine Besylate-Valsartan (Exforge), 1 TAB PO DAILY Aspirin (Aspirin Ec), 81 MG PO BID Atenolol (Tenormin), 100 MG PO DAILY Atorvastatin (Lipitor), 20 MG PO HS Clindamycin Hcl (Cleocin), 1 CAP PO BID Clonazepam (Klonopin), 0.5 MG PO BID Fluoxetine (Prozac), 20 MG PO DAILY Gabapentin (Neurontin), 300 MG PO TID Hydralazine Hcl (Apresoline), 100 MG PO TID Melatonin (Kp Melatonin), 1 TAB PO HS Multivitamins/Minerals (Mvi With Minerals), 1 TAB PO DAILY Omeprazole (Prilosec), 20 MG PO BID Senna/Docusate Sod (Senokot S), 2 TAB PO QAM Scheduled PRN Acetaminophen (Tylenol), 650 MG PO Q6 PRN for Pain or Fever Hydrocodone/Acetaminophen ([place] 10/325 Tab), 1 TAB PO Q6 PRN for Pain Promethazine Hcl (Phenergan), 25 MG PO Q6H PRN for Nausea Zolpidem Tartrate (Ambien), 10 MG PO HS PRN for Sleep Review of Systems Constitutional: No fever, No chills, No sweats, No fatigue Physical Exam Date Time Temp Pulse Resp B/P (MAP) Pulse Ox O2 Delivery O2 Flow Rate FiO2 08/13/17 16:30 68 12 91/66 96 Room Air 08/13/17 15:30 73 18 94/63 97 Room Air 08/13/17 14:24 67 15 130/73 96 Room Air 08/13/17 13:36 74 20 124/72 98 Room Air 08/13/17 13:30 70 18 124/72 99 Room Air 08/13/17 13:25 74 18 118/78 99 Nasal Cannula 2.0 08/13/17 13:20 70 18 121/82 99 Nasal Cannula 2.0 08/13/17 13:15 69 18 106/78 100 Nasal Cannula 2.0 08/13/17 13:10 72 18 89/72 98 Nasal Cannula 2.0 08/13/17 13:05 70 18 97/58 96 Nasal Cannula 2.0 08/13/17 13:00 68 18 87/53 97 Nasal Cannula 2.0 08/13/17 12:55 69 18 114/81 98 Nasal Cannula 2.0 08/13/17 12:50 69 18 117/74 98 Nasal Cannula 2.0 08/13/17 12:48 70 18 106/72 96 Nasal Cannula 2.0 08/13/17 12:44 71 08/13/17 12:02 70 16 100/77 97 Room Air 08/13/17 10:32 36.6 76 18 116/79 97 Room Air Left leg: Left lower extremity is shortened and externally rotated. Motor and sensory is intact distally in the tibial and peroneal nerve distributions, with 5 out of 5 strength on ankle and toe dorsiflexion and plantarflexion. Foot is warm and well perfused. He has a well-healing surgical incision at his left hip with the surgical veronique still in place. No evidence of infection. He has left hip pain with attempts at range of motion. Laboratory Results Last 24 Hours Test 08/13/17 13:25 Sodium Level 135 mmol/L Potassium Level 3.9 mmol/L Chloride Level 104 mmol/L Carbon Dioxide Level 28 mmol/L Anion Gap 3.0 mmol/L Blood Urea Nitrogen 13 mg/dl Creatinine 0.67 mg/dl Est Creatinine Clear Calc Drug Dose 142.3 ml/min Estimated GFR () 127.1 Estimated GFR (Non- 109.7 BUN/Creatinine Ratio 19.3 Random Glucose 86 mg/dl Calcium Level 8.5 mg/dl Magnesium Level 2.0 mg/dl Radiology: Left hip x-rays show dislocation of his total hip, but revision total hip components in good position. There are 2 cerclage wires and a greater trochanteric plate in place. His fracture line is still visible, with no obvious healing, which is not unexpected only 1 week out from surgery. Assessment & Plan (1) Dislocation of left hip Assessment & Plan: He now has recurrent dislocation of his recent revision left total hip arthroplasty without any significant traumatic event or other obvious inciting cause. I advised him that with his recurrent dislocation, he will likely need a revision procedure to attain stability of his hip. In the meantime, we will reduce his hip under conscious sedation again. He understands all this, and informed consent was obtained. Conscious sedation was then induced by the emergency department staff using propofol. After sedation was achieved, closed reduction maneuver was performed by hip flexion and longitudinal traction on the hip with countertraction on the pelvis. The hip reduced without much difficulty. The left knee was immediately placed back into a knee immobilizer and abduction pillow was placed to avoid hip flexion and abduction. Postreduction hip x-rays show a reduced total hip. No displacement of his greater trochanteric fracture or his previous hardware. No evidence of hardware failure. There are no complications from procedure. I spoke with Dr. Hoffmann, who is planning to perform a revision procedure tomorrow to insert a constrained liner to attain stability of his hip. We will plan to transfer the patient to the [facility] for his surgery tomorrow. I am covering Orthopedic Surgery call for Dr. Calloway, who is unavailable. Jersey Guthrie MD Problem Qualifiers (1) Dislocation of left hip: Encounter type: subsequent encounter Qualified Codes: S73.005D - Unspecified dislocation of left hip, subsequent encounter
[2017-08-13] MEDS ORDERED: HYDROmorphone INJ 0.5 MG/0.5 ML SYR ONE (17:57)
[2017-08-13] MEDS ORDERED: MoRPHine SULFATE 10 MG/ML CARP/VIAL ONE (21:24)
[2017-08-14] MEDS ORDERED: MIDAZOLAM HCL 1 MG/ML 2ML VIAL ONE (06:59)
[2017-08-14] MEDS ORDERED: FENTANYL CITRATE INJ 50 MCG/1 ML 2 ML VIAL ONE (06:59)
== END 2017-08-13 19:10 | disposition short-term general hospital (02) ==
LOC: EDBD 10:22 → C.EDC 10:24
DX: S73.005D Unspecified dislocation of left hip, subsequent encounter (principal); I49.3 Ventricular premature depolarization; Z79.82 Long term (current) use of aspirin; Z79.899 Other long term (current) drug therapy; Z86.19 Personal history of other infectious and parasitic diseases; Z87.828 Personal history of other (healed) physical injury and trauma; Z87.891 Personal history of nicotine dependence; Z96.642 Presence of left artificial hip joint; X58.XXXD Exposure to other specified factors, subsequent encounter